=== PATIENT | female | born 1945 | race Caucasian/White ===

== ENCOUNTER 2017-07-06 09:26 | Day surgery (SDC) | payer MEDICARE, OTHER ==
[~2017-07-06 09:26] MED LIST: Acetaminophen TAB* 325 MG PO PRN; Buffered Lidocaine 0.9% SYRIN* 5 ML/SYR SYRINGE INTRADERM ONE; Buffered Lidocaine 0.9% SYRIN* 5 ML/SYR SYRINGE ONE; Cyclopentolate 1% OPTH.SOL* 2 ML BTL ONE; Ketorolac 0.5% OPHTH (NF) 0.5 % 5 ML BTL ONE; Lidocaine 1% MPF* 2 ML VIAL ONE; Neomycin/Polymy/Dex OPTH.SUSP* MAXITROL 0.1% 5 ML ONE; Phenylephrine 2.5% OPTH.SOL* 2 ML BTL ONE; Povidone Iodine 5% OPTH* 30 ML BTL ONE; Proparacaine 0.5% OPHTH.SOL* 15 ML BTL ONE; acetaZOLAMIDE TAB* 250 MG ONE
[2017-07-06] MEDS ORDERED: Midazolam* 1 MG/ML 2 ML VIAL (2 MG) ONE (11:26)
[2017-07-06 12:30] VITALS: BP 152/68
--- NOTE | 2017-07-06 13:16 | OP ---
DATE OF OPERATION: 07/06/2017. DATE OF : 1945. SURGEON: Angel Onofre M.D. PREOPERATIVE DIAGNOSIS: Cataract right eye. POSTOPERATIVE DIAGNOSIS: Cataract right eye. OPERATIVE PROCEDURE: Phacoemulsification right eye with IOL. PROCEDURE: The patient was brought to the operating room after being given 1/2% Alcaine with epinep hrine drops in the preoperative area. The eye was prepped and draped in the usual sterile fashion. Sterile drape and eyelid speculum were placed. Again, topical 1/2% Alcaine with epinephrine was gi nadia. A paracentesis incision was made at the 9 o'clock position with the No.75 blade. Clear cornea incision 2.2 x 2.2-mm was created at the 12 o'clock position starting at the anterior limbus using the 2.2-mm keratome. The anterior chamber was irrigated with 0.4 mL of 1% non-preservative intracam eral lidocaine and filled with DisCoVisc. A capsulorrhexis was completed using the cystotome and th e Utrata forceps. Hydrodissection was performed with balanced salt solution. The lens nucleus was r emoved with the Phacoemulsification handpiece without incident. Cortex was removed with the irrigat ion-aspiration handpiece. The capsular bag was re-inflated using DisCoVisc and an [id number] 17.5 impla nt was inserted with the shooter, oriented to the 90 degree meridian. Horizontal reference munoz wer e made with the patient in the preoperative area in the seated position. The irrigation-aspiration handpiece was used to remove all residual DisCoVisc. The eye was refilled with balanced salt soluti on and the wound checked and found to be watertight. Topical Maxitrol drops were given. [id number]/[facility] #: [id number]
== END 2017-07-06 12:38 | disposition home or self-care (01) ==
LOC: OREAST 09:26
PROVIDERS: ATTEND Specialist
DX: H25.811 Combined forms of age-related cataract, right eye (principal); H43.813 Vitreous degeneration, bilateral; H10.45 Other chronic allergic conjunctivitis; I10 Essential (primary) hypertension
CPT/HCPCS: A9270-GY; J2250; V2787

== ENCOUNTER 2017-08-28 18:03 | Emergency (ER) | payer MEDICARE, OTHER ==
[2017-08-28 19:11] VITALS: BP 152/64
--- NOTE | 2017-08-28 20:36 | ED ---
Reynold Wylie Abhishek, scribed for Ravi Ramsey MD on 08/28/17 at 1902 . Neurological HPI - HPI Summary HPI Summary: This patient is a 71 year old F presenting to [facility] accompanied by with a chief complaint of vision problem in the right eye since 1629 . Pt describes visual changes as, flashing after images for 15 to 20 minutes and has issues looking in the periphery. The patient rates the pain 0/10 in severity. Symptoms aggravated by nothing. Symptoms alleviated by nothing. Patient reports missing a door handle with her right arm earlier. Patient denies pain. PMHx includes Ocular rosacea. PSHx includes cataract surgery. - History of Current Complaint Chief Complaint: EDNeurologicalDeficit Stated Complaint: WEAKNESS Time Seen by Provider: 08/28/17 18:26 Hx Obtained From: Patient, Family/Duplicator Punch Operator Onset/Duration: Sudden Onset - 1629, Still Present Timing: Constant Pain Intensity: 0 Pain Scale Used: 0-10 Numeric Character: Dizzy, Visual Changes - pt describes these changes as flashing after images for 15 to 20 minutes and has issues looking in the periphery., Other: - disorientation Aggravating: Nothing Alleviating: Nothing Associated Signs and Symptoms: Positive: Visual Changes, Dizziness - Additional Pertinent History Primary Care Physician: [id number] - Allergy/Home Medications Allergies/Adverse Reactions: Allergies Allergy/AdvReac Type Severity Reaction Status Date / Time Pentazocine Allergy Severe ESOPHAGEAL Verified 07/06/17 10:28 [From Talwin Compound] BURNING Propoxyphene [From Darvon] Allergy Severe Anaphylatic Verified 07/06/17 10:28 Shock Aspirin Allergy Nausea Verified 07/06/17 10:28 Codeine Allergy Nausea Verified 07/06/17 10:28 Oxaliplatin Allergy Unknown Verified 07/06/17 10:28 Reaction Details bee venom Allergy Anaphylatic Uncoded 07/06/17 10:28 Shock PMH/Surg Hx/FS Hx/Imm Hx Endocrine/Hematology History: Denies: Hx Diabetes Cardiovascular History: Reports: Hx Coronary Artery Disease, Hx Hypertension - meds in use Denies: Hx Congestive Heart Failure GI History: Reports: Hx Gastroesophageal Reflux Disease Denies: Other GI Disorders - COLON CANCER [id number] History: Denies: Hx Dialysis, Hx Renal Disease Musculoskeletal History: Reports: Hx Arthritis Sensory History: Reports: Hx Cataracts - ADAMARIS Denies: Hx Contacts or Glasses, Hx Hearing Aid Opthamlomology History: Reports: Hx Cataracts - ADAMARIS Denies: Hx Contacts or Glasses Neurological History: Reports: Hx Migraine, Hx Nerve Disease - NEUROPATHY BILAT FEET - Cancer History Cancer Type, Location and Year: colon Hx Chemotherapy: Yes - Surgical History Surgery Procedure, Year, and Place: ACHILLES TENDON SURGERY, partial colectomy [facility] Hx Anesthesia Reactions: No Infectious Disease History: No Infectious Disease History: Denies: Traveled Outside the [place] in Last 30 Days - Family History Known Family History: Positive: Hypertension - Social History Alcohol Use: None Substance Use Type: Reports: None Smoking Status (MU): Never Smoked Tobacco Review of Systems Constitutional: Negative Positive: Other - visual changes described as flashing after images for 15 to 20 minutes and has issues looking in the periphery. ENT: Negative Cardiovascular: Negative Respiratory: Negative Gastrointestinal: Negative Genitourinary: Negative Musculoskeletal: Negative Skin: Negative Neurological: Other - dizziness Psychological: Normal All Other Systems Reviewed And Are Negative: Yes Physical Exam - Summary Physical Exam Summary: Appearance: Well-appearing, no pain distress IF BMI > 30 = obese Skin: Warm, dry, color reflects adequate perfusion Head/face: Nml head/face Eyes: Nml eyes ENT: Nml ENT Neck: Supple, non-tender Respiratory: CTA, breath sound present Cardiovascular: RRR Abdomen: Abd soft, non-tender, Bowel: Bowel sounds + Musculoskeletal: Nml musculoskeletal Neurological: Nml neuro (unless it is a neuro Pt, then click the first 4) Psychiatric: Nml psychiatric, affect/mood appropriate Triage Information Reviewed: Yes Vital Signs On Initial Exam: Initial Vitals Temp Pulse Resp BP Pulse Ox 97 F 58 16 163/85 100 08/28/17 18:08 08/28/17 18:08 08/28/17 18:08 08/28/17 18:08 08/28/17 18:08 Vital Signs Reviewed: Yes - Alexandro Coma Scale Coma Scale Total: 15 Diagnostics - Vital Signs Vital Signs Temp Pulse Resp BP Pulse Ox 08/28/17 18:08 97 F 58 16 163/85 100 - Laboratory Lab Statement: Any lab studies that have been ordered have been reviewed, and results considered in the medical decision making process. Course/Dx - Course Course Of Treatment: I got a pretty good look at her retina and didn't see any detachment, tear or hemorrhage. She needs a better look with dilatation and Dr. Onofre will see her in the AM. She is very clear that this is only her right eye and she sees normally out of the left. - Diagnoses Provider Diagnoses: Visual field scotoma of right eye Discharge - Discharge Plan Condition: Stable Disposition: HOME Patient Education Materials: Blurred Vision (ED) Referrals: Angel Onofre MD [Medical Doctor] - (Follow up tomorrow morning) Erasto Walker MD [Primary Care Provider] - The documentation as recorded by the Reynold lynn Abhishek accurately reflects the service I personally performed and the decisions made by me, Ravi Ramsey MD.
== END 2017-08-28 19:12 | disposition home or self-care (01) ==
LOC: ED 18:03
DX: H53.451 Other localized visual field defect, right eye (principal); R42 Dizziness and giddiness; I25.10 Atherosclerotic heart disease of native coronary artery without angina pectoris; I10 Essential (primary) hypertension; K21.9 Gastro-esophageal reflux disease without esophagitis; G43.909 Migraine, unspecified, not intractable, without status migrainosus; Z91.030 Bee allergy status; Z88.5 Allergy status to narcotic agent; Z88.6 Allergy status to analgesic agent; G62.9 Polyneuropathy, unspecified
CPT/HCPCS: 99282

== ENCOUNTER → 2017-09-01 11:19 | Emergency (ER) | payer MEDICARE, OTHER ==
[~2017-09-01 11:19] MED LIST changes: -Acetaminophen TAB* 325 MG PO PRN; -Buffered Lidocaine 0.9% SYRIN* 5 ML/SYR SYRINGE INTRADERM ONE; -Buffered Lidocaine 0.9% SYRIN* 5 ML/SYR SYRINGE ONE; -Cyclopentolate 1% OPTH.SOL* 2 ML BTL ONE; +Dexamethasone IV* 10 MG in NS 0.9% 50 ML* 50 ML IVPB ONE; +Dexamethasone IV* 4 MG/ML 5 ML VIAL (20 MG) IVPB ONE; +Dexamethasone TAB* 6 MG PO ONE; +Gadoteridol* (CONTRAST) 279.3 MG/ML 10 ML IV ONE; -Ketorolac 0.5% OPHTH (NF) 0.5 % 5 ML BTL ONE; -Lidocaine 1% MPF* 2 ML VIAL ONE; -Neomycin/Polymy/Dex OPTH.SUSP* MAXITROL 0.1% 5 ML ONE; -Phenylephrine 2.5% OPTH.SOL* 2 ML BTL ONE; -Povidone Iodine 5% OPTH* 30 ML BTL ONE; -Proparacaine 0.5% OPHTH.SOL* 15 ML BTL ONE; -acetaZOLAMIDE TAB* 250 MG ONE
[2017-09-01 12:09] LABS: Hematocrit 36 % (35-47); Hemoglobin 12.4 g/dl (12.0-16.0); Mean Corpuscular HGB Conc 35 g/dl (31-36); Mean Corpuscular Hemoglobin 36 pg (27-31); Mean Corpuscular Volume 104 fL (80-97); Mean Platelet Volume 8 um3 (7.4-10.4); Red Blood Count 3.45 10^6/ul (4.0-5.4); Red Cell Distribution Width 19 % (10.5-15); White Blood Count 7.6 10^3/ul (3.5-10.8)
[2017-09-01 12:34] LABS: Albumin 3.9 g/dL (3.2-5.2); BUN/Creatinine Ratio 12.5 (8-20); Calcium 9.8 mg/dL (8.6-10.3); EGFR African American 102.7 (>60); EGFR Non-African American 79.9 (>60); Globulin 3.2 g/dL (2-4); Total Bilirubin 0.4 mg/dL (0.2-1.0); Total Protein 7.1 g/dL (6.4-8.9)
[2017-09-01 16:59] VITALS: BP 128/78
--- NOTE | 2017-09-01 17:07 | RAD ---
Indication: Colon cancer with visual changes. Image sequences: Sagittal and axial T1, axial T2, diffusion and susceptibility weighted images of the brain were obtained. 13 mL of ProHance was injected and postcontrast axial, sagittal and coronal T1-weighted images were repeated. Ventricular structures are midline. No midline shift is noted. Vasogenic edema is noted in the left occipital lobe extending into the left parietal lobe and surrounding the atria of the left lateral ventricle. There is a ring-enhancing lesion in the left occipital lobe measuring 18 x 22 x 16 mm. This is suspicious for a metastatic lesion. No other enhancing lesions are identified. The bony calvaria is otherwise unremarkable. Posterior fossa and brainstem demonstrates no evidence of abnormally enhancing lesions. Cerebellopontine angles are unremarkable. No evidence of enhancement of the meninges is noted. No restriction of diffusion is noted. Susceptibility weighted images demonstrates no susceptibility artifact. Fluid is noted in the left mastoid air cells consistent with left-sided mastoid sinusitis. The orbits are intact. The remainder of the peroneal sinuses are grossly unremarkable. IMPRESSION: Ring-enhancing lesion in the left occipital lobe measuring 18 x 22 x 16 mm with extensive vasogenic edema in the left occipital lobe extending to the left parietal lobe and in the periatrial aspect of the left lateral ventricle. Findings are consistent with a metastatic lesion as there is no restriction of diffusion. Left mastoid sinusitis is noted.
--- NOTE | 2017-09-02 19:00 | ED ---
Smith Wylie Angela, scribed for Erasto العلي MD on 09/01/17 at 1146 . Neurological HPI - HPI Summary HPI Summary: This pt is a 71 y/o female presenting to [facility] c/o right eye visual disturbances x4 days. Pt describes seeing flashing lights and issues seeing in the periphery. Pt notes that she is being followed by Dr. Mauro Medina ( [facility]) for colon CA that has metastasized to her lungs and adrenal lung. Pt is not on chemotherapy but notes she is in between clinical trials. Pt was referred to Dr. Onofre 4 days ago when she came to the ED for the same problem. Dr. Onofre diagnosed her with ocular migraine 3 days ago. Pt states she had a visual field test yesterday and Dr. Onofre suggested pt gets an MRI today. Dr. Medina is following up on the pt from [facility] as well. Pt has an upcoming appointment in [facility] in early September for a chest/abd /pel CT. PMHx: colon CA, neuropathy. - History of Current Complaint Chief Complaint: EDNeurologicalDeficit Stated Complaint: LOSS OF VISSON Time Seen by Provider: 09/01/17 11:35 Hx Obtained From: Patient Onset/Duration: Started days ago Timing: Constant Pain Intensity: 0 Pain Scale Used: 0-10 Numeric Character: Visual Changes - visual disturbances on right eye. - Additional Pertinent History Primary Care Physician: [id number] - Allergy/Home Medications Allergies/Adverse Reactions: Allergies Allergy/AdvReac Type Severity Reaction Status Date / Time Pentazocine Allergy Severe ESOPHAGEAL Verified 07/06/17 10:28 [From Talwin Compound] BURNING Propoxyphene [From Darvon] Allergy Severe Anaphylatic Verified 07/06/17 10:28 Shock Aspirin Allergy Nausea Verified 07/06/17 10:28 Codeine Allergy Nausea Verified 07/06/17 10:28 Oxaliplatin Allergy Unknown Verified 07/06/17 10:28 Reaction Details bee venom Allergy Anaphylatic Uncoded 07/06/17 10:28 Shock PMH/Surg Hx/FS Hx/Imm Hx Endocrine/Hematology History: Denies: Hx Diabetes Cardiovascular History: Reports: Hx Coronary Artery Disease, Hx Hypertension - meds in use Denies: Hx Congestive Heart Failure GI History: Reports: Hx Gastroesophageal Reflux Disease Denies: Other GI Disorders - COLON CANCER [id number] History: Denies: Hx Dialysis, Hx Renal Disease Musculoskeletal History: Reports: Hx Arthritis Sensory History: Reports: Hx Cataracts - ADAMARIS Denies: Hx Contacts or Glasses, Hx Hearing Aid Opthamlomology History: Reports: Hx Cataracts - ADAMARIS Denies: Hx Contacts or Glasses Neurological History: Reports: Hx Migraine, Hx Nerve Disease - NEUROPATHY BILAT FEET - Cancer History Cancer Type, Location and Year: colon Hx Chemotherapy: Yes - Surgical History Surgery Procedure, Year, and Place: ACHILLES TENDON SURGERY, partial colectomy [facility] Hx Anesthesia Reactions: No Infectious Disease History: No Infectious Disease History: Denies: Traveled Outside the [place] in Last 30 Days - Family History Known Family History: Positive: Hypertension - Social History Alcohol Use: None Substance Use Type: Reports: None Smoking Status (MU): Never Smoked Tobacco Review of Systems Negative: Fever, Chills Positive: Other - visual disturbance on right eye. ENT: Negative Cardiovascular: Negative Respiratory: Negative Gastrointestinal: Negative Genitourinary: Negative Musculoskeletal: Negative Skin: Negative All Other Systems Reviewed And Are Negative: Yes Physical Exam - Summary Physical Exam Summary: VITAL SIGNS: Reviewed. GENERAL: Patient is a well-developed and nourished (MALE OR FEMALE) who is lying comfortable in the stretcher. Patient is not in any acute respiratory distress. HEAD AND FACE: No signs of trauma. No ecchymosis, hematomas or skull depressions. No sinus tenderness. EYES: PERRLA, EOMI x 2, No injected conjunctiva, no nystagmus. No photophobia. EARS: Hearing grossly intact. Ear canals and tympanic membranes are within normal limits. MOUTH: Oropharynx within normal limits. NECK: Supple, trachea is midline, no adenopathy, no JVD, no carotid bruit, no c- spine tenderness, neck with full ROM. No meningeal signs, no Kernig's or brudzinskis signs. CHEST: Symmetric, no tenderness at palpation LUNGS: Clear to auscultation bilaterally. No wheezing or crackles. CVS: Regular rate and rhythm, S1 and S2 present, no murmurs or gallops appreciated. ABDOMEN: Soft, non-tender. No signs of distention. No rebound no guarding, and no masses palpated. Bowel sounds are normal. EXTREMITIES: FROM in all major joints, no edema, no cyanosis or clubbing. NEURO: Alert and oriented x 3. No acute neurological deficits. Speech is normal and follows commands. NIH scale = 1. SKIN: Dry and warm GCS: 15 Triage Information Reviewed: Yes Vital Signs On Initial Exam: Initial Vitals Temp Pulse Resp BP Pulse Ox 96.8 F 61 17 133/74 100 09/01/17 11:22 09/01/17 11:22 09/01/17 11:22 09/01/17 11:22 09/01/17 11:22 Vital Signs Reviewed: Yes Diagnostics - Vital Signs Vital Signs Temp Pulse Resp BP Pulse Ox 09/01/17 11:22 96.8 F 61 17 133/74 100 - Laboratory Result Diagrams: 09/01/17 11:55 09/01/17 11:55 Lab Statement: Any lab studies that have been ordered have been reviewed, and results considered in the medical decision making process. - Additional Comments Diagnostic Additional Comments: MRI Brain, per radiologist: IMPRESSION: Ring-enhancing lesion in the left occipital lobe measuring 18 x 22 x 16 mm with extensive vasogenic edema in the left occipital lobe extending to the left parietal lobe and in the periatrial aspect of the left lateral ventricle. Findings are consistent with a metastatic lesion as there is no restriction of diffusion. Left mastoid sinusitis is noted. ED physician has reviewed this radiology report and agrees. NIH Scale - NIH Scale Level of Consciousness: Alert/Keenly Responsive Ask Patient the Month and His/Her Age: Both Correct Ask Pt to Open/Close Eyes and Naphtha Washing System Operator/Release Non-Paretic Hand: Both Correctly Best Gaze (Only Horizontal Eye Movement): Normal Visual Field Testing: Partial Hemianopia Facial Paresis-Pt to Smile & Close Eyes or Grimace Symmetry: Normal/Symmetrical Motor Function - Right Arm: No Drift-Holds 10 Seconds Motor Function - Left Arm: No Drift-Holds 10 Seconds Motor Function - Right Leg: No Drift-Holds 10 Seconds Motor Function - Left Leg: No Drift-Holds 10 Seconds Limb Ataxia-Must be out of Proportion to Weakness Present: Absent Sensory (Use Pinprick to Test Arms/Legs/Trunk/Face): Normal Best Language (Describe Picture, Name Items): No Aphasia Dysarthria (Read Several Words): Normal Extinction and Inattention: No Abnormality Total Score: 1 Course/Dx - Course Assessment/Plan: This pt is a 71 y/o female presenting to [facility] c/o right eye visual disturbances x4 days. Pt describes seeing flashing lights and issues seeing in the periphery. Pt notes that she is being followed by Dr. Mauro Medina ([facility]) for colon CA that has metastasized to her lungs and adrenal lung. Pt is not on chemotherapy but notes she is in between clinical trials. Pt was referred to Dr. Onofre 4 days ago when she came to the ED for the same problem. Dr. Onofre diagnosed her with ocular migraine 3 days ago. Pt states she had a visual field test yesterday and Dr. Onofre suggested pt gets an MRI today. Dr. Medina is following up on the pt from [facility] as well. Pt has an upcoming appointment in [facility] in early September for a chest/abd/pel CT. PMHx: colon CA, neuropathy. MRI Brain shows Ring-enhancing lesion in the left occipital lobe measuring 18 x 22 x 16 mm with extensive vasogenic edema in the left occipital lobe extending to the left parietal lobe and in the periatrial aspect of the left lateral ventricle. Findings are consistent with a metastatic lesion as there is no restriction of diffusion. Left mastoid sinusitis is noted. I discussed the case with Dr. Sexton (from [facility]), who is covering for Dr. Medina. Dr. Sexton spoke with Dr. Medina. He recommends I discuss the case with Dr. Villagomez (who initially treated the pt in [place]) for further assessment and work up. I spoke with Dr. Middleton who spoke with Dr. Villagomez. He recommends discharging the pt with Decadron 6 mg Q6 hours. They will call the pt tomorrow for an appointment tomorrow with Dr. Villagomez, possibly for radiation oncology. I discussed with the pt and she agrees with the plan. Pt is hemodynamically stable, alert and oriented x3. - Diagnoses Provider Diagnoses: Brain metastasis - Physician Notifications Discussed Care Of Patient With: Dr. Sexton - from [facility] Time Discussed With Above Provider: 17:29 Instructed by Provider To: Other - I discussed the case with Dr. Sexton, who is covering for Dr. Medina. Dr. Sexton will speak with Dr. Medina and give me a call back. [1815] Dr. Sexton recommended I speak with Dr. Villagomez (who initially treated the pt in [place]). [18:18] I spoke with Dr. Middleton and will speak with Dr. Villagomez. [18:27] Dr. Middleton spoke with Dr. Villagomez. He recommends discharging the pt with Decadron 6 mg q6 hours. Discharge - Discharge Plan Condition: Stable Disposition: HOME Prescriptions: Dexamethasone TAB* [Decadron TAB*] 6 mg PO Q6H #40 tab Patient Education Materials: Self Care Measures With Cancer (ED) Referrals: Dominic Villagomez MD [Medical Doctor] - Erasto Walker MD [Primary Care Provider] - Additional Instructions: Please follow up with Dr. Villagomez tomorrow. The documentation as recorded by the Smith lynn Angela accurately reflects the service I personally performed and the decisions made by me, Erasto العلي MD.
== END | disposition home or self-care (01) ==
LOC: ED 11:19
DX: C79.31 Secondary malignant neoplasm of brain (principal); H53.9 Unspecified visual disturbance; Z86.79 Personal history of other diseases of the circulatory system
CPT/HCPCS: 36415; 70553; 80053; 85025; 85610; 85730; 86850; 86900; 86901; 99283; A9270-GY; A9579; J1100; J1642

== ENCOUNTER 2017-09-15 14:52 | Inpatient (IN) | payer MEDICARE, OTHER ==
[2017-09-15] MEDS ORDERED: NS 0.9% 1000 ML*IV.FLUID IV ONE (18:04)
--- NOTE | 2017-09-15 18:52 | RAD ---
HISTORY: Cough, short of breath COMPARISONS: PET CT dated February 23, 2017, chest x-ray dated February 02, 2017 VIEWS: 4: Frontal dual-energy and lateral views of the chest. FINDINGS: CARDIOMEDIASTINAL SILHOUETTE: The cardiomediastinal silhouette is normal. IVETT: The ivett are normal. PLEURA: The costophrenic angles are sharp. No pleural abnormalities are noted. LUNG PARENCHYMA: There has been interval development of confluent opacification of the upper lobes bilaterally and to lesser extent of the right middle lobe. ABDOMEN: The upper abdomen is clear. There is no subphrenic gas. BONES AND SOFT TISSUES: A right-sided chest port is noted with the tip overlying the cavoatrial junction. OTHER: None. IMPRESSION: 1. THERE HAS BEEN INTERVAL DEVELOPMENT OF MULTIFOCAL OPACIFICATION OF THE LUNGS BILATERALLY. THE DIFFERENTIAL INCLUDES CONSOLIDATION IN THE SETTING OF PNEUMONIA. GIVEN THE HISTORY OF MALIGNANCY, NEOPLASM IS ALSO WITHIN THE DIFFERENTIAL. 2. RECOMMEND FOLLOW-UP UNTIL RESOLUTION TO EXCLUDE UNDERLYING PULMONARY PARENCHYMAL PATHOLOGY. IF THE CLINICAL PRESENTATION IS NOT CONSISTENT WITH INFECTION, CONSIDER FURTHER EVALUATION WITH CONTRAST-ENHANCED CT OF THE CHEST
[2017-09-15] MEDS ORDERED: cefTRIAXone(*) 1 GM in NS 0.9% 50 ML* 50 ML IVPB ONE (18:54)
[2017-09-15] MEDS ORDERED: Azithromycin IV(*) 500 MG in NS 0.9% 250 ML* 250 ML IVPB ONE (18:54)
[2017-09-15 19:16] LABS: Hematocrit 34 % (35-47); Hemoglobin 11.7 g/dl (12.0-16.0); Mean Corpuscular HGB Conc 34 g/dl (31-36); Mean Corpuscular Hemoglobin 34 pg (27-31); Mean Corpuscular Volume 100 fL (80-97); Mean Platelet Volume 9 um3 (7.4-10.4); Red Cell Distribution Width 18 % (10.5-15)
[2017-09-15 19:17] LABS: Comments Flag Yes
[2017-09-15 19:18] LABS: Add Diff/Slide Review? Slide Review Added
[2017-09-15 19:32] LABS: Albumin 2.8 g/dL (3.2-5.2); BUN/Creatinine Ratio 21.7 (8-20); Calcium 9.3 mg/dL (8.6-10.3); Direct Bilirubin 0.2 mg/dL (0.03-0.18); EGFR African American 126.7 (>60); EGFR Non-African American 98.5 (>60); Globulin 3.5 g/dL (2-4); Indirect Bilirubin 0.4 mg/dL (0.3-1.0); Potassium 4.3 mmol/L (3.5-5.0); Total Bilirubin 0.6 mg/dL (0.2-1.0); Total Protein 6.3 g/dL (6.4-8.9)
[2017-09-15 19:35] LABS: Troponin I 0.05 ng/mL (<0.04)
[2017-09-15] MEDS ORDERED: Iohexol 350* (CONTRAST) 500 ML MDV IV ONE (19:40)
[2017-09-15 19:53] LABS: Immature Granulocytes 8 % (0-9); Neutrophil % 92 % (38-83); RBC Morphology Normal (Normal); Toxic Granulation 2+
--- NOTE | 2017-09-15 20:03 | ED ---
Aimee Wylie Alfonso, scribed for Da Rosales MD on 09/15/17 at 1758 . Complex/Multi-Sys Presentation - HPI Summary HPI Summary: This patient is a 71 year old F presenting to [facility] accompanied by with a chief complaint of slowed and slurred speech since 2 days ago. reports she couldnt speak well. She reports undergoing a gamma knife procedure 10 days ago. The patient rates the pain 0/10 in severity. Symptoms alleviated by nothing. Patient reports fever, SOB, shallow breathing, cough, urinary incontinence, and peripheral vision loss. Patient denies pain including abdominal pain and back pain, and saddle numbness. - History Of Current Complaint Chief Complaint: EDAltMentalStatus Hx Obtained From: Patient Onset/Duration: Gradual Onset, Lasting Days - 2, Still Present Timing: Constant Alleviating Factor(s): nothing Associated Signs And Symptoms: Positive: Other - fever, SOB, shallow breathing, cough, urinary inconstancy, and peripheral vision loss. Patient denies pain including abdominal pain and back pain, and saddle numbness. - Allergies/Home Medications Allergies/Adverse Reactions: Allergies Allergy/AdvReac Type Severity Reaction Status Date / Time Pentazocine Allergy Severe ESOPHAGEAL Verified 07/06/17 10:28 [From Talwin Compound] BURNING Propoxyphene [From Darvon] Allergy Severe Anaphylatic Verified 07/06/17 10:28 Shock Aspirin Allergy Nausea Verified 07/06/17 10:28 Codeine Allergy Nausea Verified 07/06/17 10:28 Oxaliplatin Allergy Unknown Verified 07/06/17 10:28 Reaction Details bee venom Allergy Anaphylatic Uncoded 07/06/17 10:28 Shock PMH/Surg Hx/FS Hx/Imm Hx Endocrine/Hematology History: Denies: Hx Diabetes Cardiovascular History: Reports: Hx Coronary Artery Disease, Hx Hypertension - meds in use Denies: Hx Congestive Heart Failure, Hx Pacemaker/ICD GI History: Reports: Hx Gastroesophageal Reflux Disease Denies: Other GI Disorders - COLON CANCER [id number] History: Denies: Hx Dialysis, Hx Renal Disease Musculoskeletal History: Reports: Hx Arthritis Sensory History: Reports: Hx Cataracts - ADAMARIS Denies: Hx Contacts or Glasses, Hx Hearing Aid Opthamlomology History: Reports: Hx Cataracts - ADAMARIS Denies: Hx Contacts or Glasses Neurological History: Reports: Hx Migraine, Hx Nerve Disease - NEUROPATHY BILAT FEET Psychiatric History: Denies: Hx Panic Disorder - Cancer History Cancer Type, Location and Year: colon Hx Chemotherapy: Yes - Surgical History Surgery Procedure, Year, and Place: ACHILLES TENDON SURGERY, partial colectomy [facility] Hx Anesthesia Reactions: No Infectious Disease History: No Infectious Disease History: Denies: Traveled Outside the [place] in Last 30 Days - Family History Known Family History: Positive: Hypertension - Social History Alcohol Use: None Substance Use Type: Reports: None Smoking Status (MU): Never Smoked Tobacco Review of Systems Positive: Fever Positive: Other - peripheral vision loss Positive: Shortness Of Breath, Cough, Other - shallow breathing Negative: Abdominal Pain Positive: incontinence Positive: Other - negative pain including back pain Neurological: Other - slowed and slurred speech; negative saddle numbness. All Other Systems Reviewed And Are Negative: Yes Physical Exam - Summary Physical Exam Summary: Appearance: Well-appearing, Well-nourished, NAD Skin: Warm Eyes: Normal ENT: Normal Neck: Supple, nontender Respiratory: Crackles throughout right lung pond Cardiovascular: Normal, Normal distal pulses in all extremities Abdomen: Soft, nontender Bowel: Present Musculoskeletal: Normal, Strength/ROM Intact Neurological: Normal, A&Ox3, Cranial nerves II to XII intact. No dysarthria or aphasia. Psychiatric: Normal, Speaking in full sentences Triage Information Reviewed: Yes Vital Signs On Initial Exam: Initial Vitals Temp Pulse Resp BP Pulse Ox 100.4 F 95 18 156/63 91 09/15/17 15:08 09/15/17 15:08 09/15/17 15:08 09/15/17 15:08 09/15/17 15:08 Vital Signs Reviewed: Yes Diagnostics - Vital Signs Vital Signs Temp Pulse Resp BP Pulse Ox 09/15/17 17:06 100.8 F 85 19 139/84 88 09/15/17 15:08 100.4 F 95 18 156/63 91 - Laboratory Lab Results: Lab Results 09/15/17 09/15/17 09/15/17 Range/Units 19:05 19:05 19:05 WBC 19.0 H (3.5-10.8) 10^3/ul RBC 3.40 L (4.0-5.4) 10^6/ul Hgb 11.7 L (12.0-16.0) g/dl Hct 34 L (35-47) % MCV 100 H (80-97) fL MCH 34 H (27-31) pg MCHC 34 (31-36) g/dl RDW 18 H (10.5-15) % Plt Count 141 L (150-450) 10^3/ul MPV 9 (7.4-10.4) um3 Immature Gran % (Auto) 8 (0-9) % Neut % (Auto) 98.7 H (38-83) % Lymph % (Auto) 0.5 L (25-47) % [place] % (Auto) 0.5 L (1-9) % Eos % (Auto) 0 (0-6) % Baso % (Auto) 0.3 (0-2) % Absolute Neuts (auto) 18.8 H (1.5-7.7) 10^3/ul Absolute Lymphs (auto) 0.1 L (1.0-4.8) 10^3/ul Absolute Monos (auto) 0.1 (0-0.8) 10^3/ul Absolute Eos (auto) 0 (0-0.6) 10^3/ul Absolute Basos (auto) 0.1 (0-0.2) 10^3/ul Absolute Nucleated RBC 0 10^3/ul Neutrophils % 92 H (38-83) % Band Neutrophils % 8 (0-8) % Nucleated RBC % 0 Toxic Granulation 2+ Normal RBC Morphology Normal (Normal) INR (Anticoag Therapy) 1.02 (0.89-1.11) APTT 38.6 H (26.0-36.3) seconds Fibrinogen 802 H (110.8-404.3) mg/dL Sodium 124 L (133-145) mmol/L Potassium 4.3 (3.5-5.0) mmol/L Chloride 91 L (101-111) mmol/L Carbon Dioxide 25 (22-32) mmol/L Anion Gap 8 (2-11) mmol/L BUN 13 (6-24) mg/dL Creatinine 0.60 (0.51-0.95) mg/dL Est GFR ( Amer) 126.7 (>60) Est GFR (Non-Af Amer) 98.5 (>60) BUN/Creatinine Ratio 21.7 H (8-20) Glucose 110 H (70-100) mg/dL Lactic Acid (0.5-2.0) mmol/L Calcium 9.3 (8.6-10.3) mg/dL Total Bilirubin 0.60 (0.2-1.0) mg/dL Direct Bilirubin 0.20 H (0.03-0.18) mg/dL Indirect Bilirubin 0.4 (0.3-1.0) mg/dL AST 52 H (13-39) U/L ALT 65 H (7-52) U/L Alkaline Phosphatase 100 (34-104) U/L Troponin I 0.05 H* (<0.04) ng/mL Total Protein 6.3 L (6.4-8.9) g/dL Albumin 2.8 L (3.2-5.2) g/dL Globulin 3.5 (2-4) g/dL Albumin/Globulin Ratio 0.8 L (1-3) Blood Type Antibody Screen 09/15/17 09/15/17 Range/Units 19:05 19:05 WBC (3.5-10.8) 10^3/ul RBC (4.0-5.4) 10^6/ul Hgb (12.0-16.0) g/dl Hct (35-47) % MCV (80-97) fL MCH (27-31) pg MCHC (31-36) g/dl RDW (10.5-15) % Plt Count (150-450) 10^3/ul MPV (7.4-10.4) um3 Immature Gran % (Auto) (0-9) % Neut % (Auto) (38-83) % Lymph % (Auto) (25-47) % [place] % (Auto) (1-9) % Eos % (Auto) (0-6) % Baso % (Auto) (0-2) % Absolute Neuts (auto) (1.5-7.7) 10^3/ul Absolute Lymphs (auto) (1.0-4.8) 10^3/ul Absolute Monos (auto) (0-0.8) 10^3/ul Absolute Eos (auto) (0-0.6) 10^3/ul Absolute Basos (auto) (0-0.2) 10^3/ul Absolute Nucleated RBC 10^3/ul Neutrophils % (38-83) % Band Neutrophils % (0-8) % Nucleated RBC % Toxic Granulation Normal RBC Morphology (Normal) INR (Anticoag Therapy) (0.89-1.11) APTT (26.0-36.3) seconds Fibrinogen (110.8-404.3) mg/dL Sodium (133-145) mmol/L Potassium (3.5-5.0) mmol/L Chloride (101-111) mmol/L Carbon Dioxide (22-32) mmol/L Anion Gap (2-11) mmol/L BUN (6-24) mg/dL Creatinine (0.51-0.95) mg/dL Est GFR ( Amer) (>60) Est GFR (Non-Af Amer) (>60) BUN/Creatinine Ratio (8-20) Glucose (70-100) mg/dL Lactic Acid 1.8 (0.5-2.0) mmol/L Calcium (8.6-10.3) mg/dL Total Bilirubin (0.2-1.0) mg/dL Direct Bilirubin (0.03-0.18) mg/dL Indirect Bilirubin (0.3-1.0) mg/dL AST (13-39) U/L ALT (7-52) U/L Alkaline Phosphatase (34-104) U/L Troponin I (<0.04) ng/mL Total Protein (6.4-8.9) g/dL Albumin (3.2-5.2) g/dL Globulin (2-4) g/dL Albumin/Globulin Ratio (1-3) Blood Type O Positive Antibody Screen Negative Result Diagrams: 09/15/17 19:05 09/15/17 19:05 Lab Statement: Any lab studies that have been ordered have been reviewed, and results considered in the medical decision making process. - Radiology CXR Radiology Interpretation Completed By: Radiologist - 1. THERE HAS BEEN INTERVAL DEVELOPMENT OF MULTIFOCAL OPACIFICATION OF THE LUNGS BILATERALLY. THE DIFFERENTIAL INCLUDES CONSOLIDATION IN THE SETTING OF PNEUMONIA. GIVEN THE HISTORY OF MALIGNANCY, NEOPLASM IS ALSO WITHIN THE DIFFERENTIAL. 2. RECOMMEND FOLLOW-UP UNTIL RESOLUTION TO EXCLUDE UNDERLYING PULMONARY PARENCHYMAL PATHOLOGY. IF THE CLINICAL PRESENTATION IS NOT CONSISTENT WITH INFECTION, CONSIDER FURTHER EVALUATION WITH CONTRAST-ENHANCED CT OF THE CHEST. ED physician has reviewed this radiology report and agrees. - CT CTA Chest CT Interpretation Completed By: Radiologist - Pending official interpretation from radiologist. See meditech. - EKG 1818 Cardiac Rate: NL - BPM 88 EKG Rhythm: Sinus Rhythm EKG Interpretation: Flattened T-wave inversions in AVL. EKG Comparison: No Significant Change - 06/06/15 Complex Multi-Symp Course/Dx Assessment/Plan: pt given abx for pna seen on xr, ct chest pending, admitte dfor further treatmenbt - Diagnoses Provider Diagnoses: Pneumonia - Physician Notifications Instructed by Provider To: Admit As Inpatient Discharge - Discharge Plan Condition: Stable Disposition: ADMITTED TO [facility] The documentation as recorded by the Aimee lynn Alfonso accurately reflects the service I personally performed and the decisions made by Bobby khan Dong, MD.
--- NOTE | 2017-09-15 20:38 | RAD ---
HISTORY: Altered mental status, fever, cough COMPARISONS: CT of the chest dated October 15, 2016 TECHNIQUE: Multiple contiguous axial CT scans of the chest were obtained after the administration of nonionic intravenous contrast, timed to the pulmonary arterial phase of contrast enhancement.. Coronal and sagittal multiplanar reformations are also submitted for review. FINDINGS: NECK AND THYROID: The lower neck and thyroid are unremarkable. CHEST WALL: There is no lower cervical, axillary, or supraclavicular lymphadenopathy by size criteria. A right-sided chest port is noted. HEART AND PERICARDIUM: The heart is unremarkable. AORTA AND PULMONARY VASCULATURE: There is no pulmonary arterial filling defect to suggest pulmonary embolism. There is no linear filling defect within the aorta to suggest aortic dissection. MEDIASTINUM: There is no mediastinal lymphadenopathy by size criteria. IVETT: There is no hilar lymphadenopathy by size criteria. AIRWAY AND ESOPHAGUS: The airway is unremarkable, without endobronchial filling defect. The esophagus is grossly normal. LUNG PARENCHYMA: There is a paramediastinal solid mass of the right upper lobe measuring 4.7 cm in size. There is a mass of the lingula measuring 3.7 cm in size. There is masslike consolidation of the left upper lobe and multiple segments of the right lower lobe. There is masslike consolidation of the right middle lobe. PLEURA: No pleural abnormalities are noted. UPPER ABDOMEN: A left renal cyst is noted. BONES AND SOFT TISSUES: There is diffuse osteopenia. Degenerative changes are noted of the spine OTHER: None. IMPRESSION: THERE ARE MULTIPLE PULMONARY PARENCHYMAL MASSES, WELL AREAS OF CONSOLIDATION VERSUS MASS THROUGHOUT BOTH LUNGS, MOST CONSISTENT WITH NEOPLASM VERSUS MIXED NEOPLASM AND CONSOLIDATION. THERE IS NO PULMONARY ARTERIAL FILLING DEFECT TO SUGGEST PULMONARY EMBOLISM
[2017-09-15] MEDS ORDERED: Ondansetron INJ* 2 MG/ML VIAL IV PRN (21:21)
[2017-09-15] MEDS ORDERED: Acetaminophen TAB* 325 MG PO PRN (21:21)
[2017-09-15] MEDS ORDERED: traMADol TAB* 50 MG PO PRN (21:25)
[2017-09-15] MEDS ORDERED: Diphenoxylat/Atrop 2.5-0.025M* 1 TAB PO PRN (21:25)
[2017-09-15] MEDS ORDERED: Prochlorperazine TAB* 10 MG PO PRN (21:25)
--- NOTE | 2017-09-15 21:33 | RAD ---
HISTORY: Dysarthria, history of brain metastases COMPARISONS: MRI dated September 01, 2017 TECHNIQUE: Multiple contiguous axial CT scans were obtained of the head without intravenous contrast. FINDINGS: HEMORRHAGE/INFARCT: There is no hemorrhage or acute infarct. MASSES/SHIFT: There is low-attenuation lesion of the left occipital lobe corresponding to the lesion noted on MRI dated September 01, 2017. There is associated vasogenic edema. There is no shift. EXTRA-AXIAL SPACES: There are no extra-axial fluid collections. SULCI AND VENTRICLES: The sulci and ventricles are normal in size and position for the patient's stated age. CEREBRUM: As noted above, there is a high attenuation lesion of the left occipital lobe corresponding to the metastatic lesion noted on MRI. There is associated vasogenic edema. There is shift. Accounting for differences in technique, this is similar to the previous examination.. BRAINSTEM: There are no focal parenchymal abnormalities. CEREBELLUM: There are no focal parenchymal abnormalities. VESSELS: The vessels are grossly normal. PARANASAL SINUSES: The paranasal sinuses are clear. ORBITS: The orbits are unremarkable. BONES AND SOFT TISSUE: No bone or soft tissue abnormalities are noted. OTHER: None IMPRESSION: AGAIN NOTED IS A LESION MOST CONSISTENT WITH METASTASIS OF THE LEFT OCCIPITAL LOBE WITH ASSOCIATED VASOGENIC EDEMA, SIMILAR TO PREVIOUS MRI ACCOUNTING FOR DIFFERENCES IN TECHNIQUE. THERE IS NO SHIFT.
[2017-09-16] MEDS ORDERED: guaiFENesin LIQ* 100 MG/5 ML UDC PO PRN (00:32)
[2017-09-16] MEDS: Dexamethasone TAB* 6 MG PO SCH ×5 (00:35→21:39)
[2017-09-16] MEDS: Enoxaparin(*) 40 MG/0.4 ML SYR SUBCUT SCH ×2 (00:37→21:39)
[2017-09-16] MEDS: Nystatin SUSPENSION* 100000 UNITS/ML 5 ML UDC PO SCH ×5 (00:43→21:39)
[2017-09-16] MEDS: Baclofen TAB* 10 MG PO SCH ×4 (00:59→17:00)
--- NOTE | 2017-09-16 01:39 | HP ---
CC: Dr. Walker; Dr. Dominic Villagomez, Oncology * HISTORY AND PHYSICAL: DATE OF ADMISSION: 09/15/17 PRIMARY CARE PHYSICIAN: Dr. Walker. CHIEF COMPLAINT: Shortness of breath, congestion. HISTORY OF PRESENT ILLNESS: Ms. Krishnan is a pleasant 71-year-old female with a past medical history of hypertension and metastatic colon cancer to the right lung, brain, and right adrenal gland status post surgery, chemo/radiation therapy, and gamma knife surgery, who presents to the hospital with shortness of breath and congestion. The patient states she recently underwent a gamma knife radiosurgery in [place] about 10 days ago. Shortly after that, she developed a mild cough and within the past 3 days, the cough has worsened. She now feels throat and chest congestion and reports a small amount of yellowish white sputum production with no blood in the sputum. She also reports some left -sided chest pain that is worse with coughing and deep breathing, has had a low- grade fever at home today, and has been having progressively difficulty sleeping due to her breathing issues. She reports incontinence, which is new as well as some diarrhea or constipation. The diarrhea and constipation has been nonbloody. Denies any dysuria. She has been having good p.o. intake and no nausea and vomiting. The patient was diagnosed with colon cancer in 2014. States she had a right hemicolectomy at that time and subsequently was treated with chemotherapy and radiation therapy. She states she sees Dr. Villagomez locally and also sees Dr. Medina and Dr. Hansen at [place]. She says she is not currently on chemotherapy. Her last treatment was [address] Medina in [place]. As noted above, she underwent a gamma knife radiosurgery 10 days ago for a metastatic lesion in her brain. Her also notes that last night she became "irrational and hostile," which is unusual for her and he has also noted that her speech seems a little off today where she is very precise in her enunciation. PAST MEDICAL HISTORY: Metastatic colon cancer diagnosed in 2014, currently with mets to the right lung, brain, and right adrenal gland; and hypertension. PAST SURGICAL HISTORY: Right hemicolectomy, cataract surgery, partial hysterectomy, gamma knife radiosurgery. HOME MEDICATIONS: 1. Tylenol 500 mg by mouth every 6 hours as needed for pain. 2. Norvasc 5 mg by mouth daily. 3. Vitamin C 1000 mg by mouth daily. 4. Atorvastatin 20 mg by mouth every other day. 5. Baclofen 10 mg by mouth every 6 hours. 6. Calcium carbonate with vitamin D 1 tablet by mouth daily. 7. Cod liver oil 1 capsule by mouth daily. 8. Vitamin B12 1000 mcg by mouth daily. 9. Claritin-D 12 Hour 1 tablet by mouth every 24 hours as needed for allergies. 10. Decadron 6 mg by mouth every 6 hours. 11. Lomotil 1 tablet by mouth 4 times daily as needed for constipation. 12. Epinephrine 0.3 mg IM as needed for anaphylaxis. 13. Nexium 40 mg by mouth daily. 14. Glucosamine/chondroitin 1 tablet by mouth daily. 15. Zofran 4 mg by mouth twice daily as needed for nausea. 16. Oxybutynin 15 mg by mouth daily. 17. Lyrica 75 mg by mouth daily. 18. Compazine 10 mg by mouth every 6 hours as needed for nausea. 19. Red Yeast Rice Extract 1200 mg by mouth every other day. 20. Tramadol 50 mg by mouth every 12 hours as needed for pain. 21. Benadryl 50 mg by mouth every 6 hours as needed for congestion. The patient is not currently on prednisone any longer. We will remove from her med list. ALLERGIES: The patient reports allergies to PENTAZOCINE, , ASPIRIN, CODEINE, OXALIPLATIN, and BEE STINGS. FAMILY HISTORY: Significant for father with CHF. Mother with hypertension. Maternal uncles with kidney disease. SOCIAL HISTORY: The patient has never smoked cigarettes. No recent alcohol use. No illicit drug use. Lives at home with her . REVIEW OF SYSTEMS: A 12-point review of systems negative except for that as noted in the HPI. PHYSICAL EXAMINATION GENERAL: The patient is an elderly female lying in bed in no apparent distress with occasional coughing. VITAL SIGNS: On admission, temperature 100.4, heart rate of 95, respiratory rate of 18, O2 saturation 91% on room air, blood pressure 156/63. Subsequently , the patient became hypoxic and is currently on 3 to 4 L of oxygen. HEENT: Head normocephalic, atraumatic. Eyes: Pupils equal, round, and reactive to light and accommodation. Anicteric sclerae. ENT: Dry mucous membranes. No cervical adenopathy. Thrush noted in the roof of the mouth and posterior oropharynx. LUNGS: Sound clear to auscultation bilaterally. I do not appreciate much in terms of rales or rhonchi. Breath sounds are a bit diminished diffusely. CARDIOVASCULAR: Regular rate and rhythm. S1 and S2 present. No murmurs, gallops, or rubs. ABDOMEN: Soft, nontender, nondistended. Bowel sounds positive. EXTREMITIES: No cyanosis, clubbing, or edema. NEURO: The patient is alert and oriented x3. Cranial nerves II through XII intact. Sensation is intact and symmetric bilaterally. Strength is 5/5 throughout bilateral upper extremities. Has bilateral weakness in hip flexion, is just able to overcome gravity. Hip extension and dorsiflexion and plantar flexion are both 5/5. Speech is not dysarthric, but the patient will occasionally enunciate syllables very deliberately and other times seems more conversational. The patient's states this is out of character for her. LABS AND DIAGNOSTICS: White blood cell count of 19, hemoglobin of 11.7, hematocrit of 34, platelets of 141, 92% neutrophils, 8% bands. INR 1.02. Sodium of 124, potassium 4.3, chloride of 91, carbon dioxide of 25, BUN of 13, creatinine 0.6, glucose of 110. Total bilirubin 0.6, direct bilirubin of 0.2, AST 52, ALT 65. Troponin 0.05. EKG personally reviewed shows normal sinus rhythm. No ischemic changes. Chest x-ray personally reviewed shows bilateral multifocal opacifications. CTA of the chest shows multiple pulmonary parenchymal masses as well as areas of consolidation versus mass throughout both lungs most consistent with neoplasm versus mixed neoplasm and consolidation. There are no pulmonary arterial defect to suggest pulmonary embolism. ASSESSMENT AND PLAN: Sepsis likely secondary to community-acquired pneumonia in the setting of potentially new mets to the lungs in a 71-year-old female with a past medical history of colon cancer with known metastasis to the right lung, brain, and right adrenal gland as well as hypertension. 1. Sepsis 2/2 CAP. The patient has a leukocytosis, low-grade fever with a left shift. She was started on ceftriaxone and azithromycin in the emergency department. We will continue this for now. Blood cultures are pending. We will check a strep and Legionella urine antigens as well. It is difficult at this time to tell how much of her new lung findings are due to infection or potentially new metastasis to the lung. A UA is pending at this time as well as the patient reports incontinence, which is new for her. 2. Behavioral changes and speech changes. I do not appreciate anything focal on neuro exam. The patient's last MRI in our system was in August, that is when she was diagnosed with this new brain lesion and this is what she just recently had gamma knife radiosurgery for. She states she had some imaging in [place] at the time of the surgery, but we do not have any imaging here. We will check a CT of the head and we will defer to Oncology tomorrow. They would like to proceed with MRI if needed to further visualize. 3. Metastatic colon cancer. As noted above, CT imaging of the chest shows potentially new metastatic disease there. We will defer to Oncology about further treatment for this. We will continue her home Decadron for now at 6 mg q.6 hours. 4. Troponin elevation. May be demand ischemia. I did not notice any significant EKG changes, and the patient's report of chest pain seems pleuritic in nature. We will continue to trend the troponins and monitor on telemetry. 5. Hyponatremia. It seems that the patient has been taking good p.o. intake. As noted above, we will check a Legionella urine antigen as she has been reporting some diarrhea with her pulmonary symptoms as well. She has received 2 L of IV fluid in the emergency department. We will hold off on any fluid for now and recheck a BMP in the morning. 6. Hypertension. Blood pressures have been stable. We will continue her home Norvasc. 7. DVT prophylaxis. Lovenox subcu. 8. Code status. The patient is a full code. TIME SPENT: Total time spent on this admission 60 minutes, with over half the time was spent [id number] with the patient counseling and coordinating care. [id number]/[facility] #: [id number] ROBBY
[2017-09-16 06:30] LABS: Hematocrit 31 % (35-47); Hemoglobin 10.6 g/dl (12.0-16.0); Mean Corpuscular HGB Conc 34 g/dl (31-36); Mean Corpuscular Hemoglobin 34 pg (27-31); Mean Corpuscular Volume 101 fL (80-97); Mean Platelet Volume 9 um3 (7.4-10.4); Red Cell Distribution Width 18 % (10.5-15); White Blood Count 15.8 10^3/ul (3.5-10.8)
[2017-09-16 06:48] LABS: Albumin 2.5 g/dL (3.2-5.2); BUN/Creatinine Ratio 19.6 (8-20); Calcium 8.8 mg/dL (8.6-10.3); EGFR African American 137.2 (>60); EGFR Non-African American 106.7 (>60); Potassium 4.1 mmol/L (3.5-5.0); Total Bilirubin 0.6 mg/dL (0.2-1.0); Total Protein 5.5 g/dL (6.4-8.9)
[2017-09-16] MEDS: Omeprazole CAP* 20 MG PO SCH (08:21)
[2017-09-16] MEDS: Ascorbic Acid TAB* 500 MG PO SCH (08:27)
[2017-09-16] MEDS: amLODIPine TAB* 5 MG PO SCH (08:27)
[2017-09-16] MEDS: Pregabalin CAP(*) 25 MG PO SCH (08:27)
[2017-09-16] MEDS: Cyanocobalamin TAB* 500 MCG PO SCH (08:30)
--- NOTE | 2017-09-16 10:00 | PN ---
Progress Note - Progress Note Date of Service: 09/16/17 SOAP: Subjective: []Feeling a little better today. Had gamma knife last week. Has been "loopy" since procedure. Cough x 3 days, dry, consistent. Has not noticed any fevers at home. Has had change in voice and some difficulty swallowing. No pain. Eating well, no nausea. No change in urination. Acetaminophen (Tylenol Tab*) 650 mg PO Q4H PRN PRN Reason: FEVER/PAIN Amlodipine Besylate (Norvasc Tab*) 5 mg PO DAILY [facility] Last Admin: 09/16/17 08:27 Dose: 5 mg Ascorbic Acid (Vitamin C Tab*) 1,000 mg PO DAILY [facility] Last Admin: 09/16/17 08:27 Dose: 1,000 mg Baclofen (Lioresal Tab*) 10 mg PO Q6HR [facility] Last Admin: 09/16/17 05:35 Dose: Not Given Cyanocobalamin (Vitamin B12 Tab*) 1,000 mcg PO MoWeFr [facility] Last Admin: 09/16/17 08:30 Dose: 1,000 mcg Dexamethasone (Decadron Tab*) 6 mg PO Q6H [facility] Last Admin: 09/16/17 04:32 Dose: 6 mg Diphenoxylate HCl/Atropine (Lomotil Tab*) 1 tab PO QID PRN PRN Reason: CONSTIPATION Last Admin: 09/16/17 08:40 Dose: 1 tab Enoxaparin Sodium (Lovenox(*)) 40 mg SUBCUT Q24H [facility] Last Admin: 09/16/17 00:37 Dose: 40 mg Fluconazole (Diflucan 100 Mg Tab*) 200 mg PO DAILY [facility] Guaifenesin (Robitussin*) 5 ml PO Q4H PRN PRN Reason: COUGH Haloperidol (Haldol Tab*) 1 mg PO Q2H PRN PRN Reason: CONFUSION Ceftriaxone Sodium 1,000 mg/ (Sodium Chloride) 50 mls @ 200 mls/hr IVPB Q24H [facility] Azithromycin 500 mg/ Sodium (Chloride) 250 mls @ 250 mls/hr IVPB Q24H [facility] Sodium Chloride (Ns 0.9% 1000 Ml*) 1,000 mls @ 100 mls/hr IV PER RATE [facility] Nystatin (Nystatin Suspension*) 500,000 units PO QID [facility] Stop: 09/22/17 21:24 Last Admin: 09/16/17 08:27 Dose: 500,000 units Omeprazole (Prilosec Cap*) 20 mg PO DAILY@0730 [facility] PRN Reason: Protocol Last Admin: 09/16/17 08:21 Dose: 20 mg Ondansetron HCl (Zofran Inj*) 4 mg IV Q4H PRN PRN Reason: NAUSEA/VOMITING Pregabalin (Lyrica Cap(*)) 75 mg PO DAILY [facility] Last Admin: 09/16/17 08:27 Dose: 75 mg Prochlorperazine (Compazine Tab*) 10 mg PO Q6H PRN PRN Reason: NAUSEA Last Admin: 09/16/17 08:40 Dose: 10 mg Tramadol HCl (Ultram*) 50 mg PO Q12HR PRN PRN Reason: PAIN Objective: [] Vital Signs Temp Pulse Resp BP Pulse Ox 99.0 F 71 16 127/50 94 09/16/17 07:38 09/16/17 07:38 09/16/17 08:40 09/16/17 07:38 09/16/17 07:38 Telemetry - PVCs, APCs, no tachy, no irregular rhythms HEENT - Thrush Some crackles both sides, back is warm. No wheezing RRR S1S2 +BS, mild obese, NT/ND Ext w/o edema Assessment: []71 year old with metastatic colon cance and INDIGO VAT TENDER CLOTH lesion. S/p gamma knife last week who presents with low grade fever, respiratory symptoms and pulmonary infiltrates. Ddx: CAP, hospital acquired pneumonia from [place], aspiration in that order. She is immuno compromised from chemotherapy and steroids. Plan: []1. Pneumonia. Seems improved on current antibiotics and will keep same today. Change to meropenem for additional fevers given possible HAP. No respiratory distress this am. 2. Troponin is stable and telemetry negative, d/c Telemetry, 3. Thrush. Fluconizole 200 mg po daily. - Drug interaction with Lipitor, will hold 4. INDIGO VAT TENDER CLOTH disease. Fluconazole will decrease effective dose of Dex, once off Fluconazole consider going to 6 mg tid 5. Delirium. From gamma knife, pneumonia, INDIGO VAT TENDER CLOTH cancer. Follow. Haldol PRN and avoid benzos and anticholenergic medication. 6. Hyponatremia. NS at 100 cc/hr
[2017-09-16] MEDS: Fluconazole 100 MG TAB* TAB PO SCH (10:36)
[2017-09-16] MEDS: NS 0.9% 1000 ML* 1,000 ML IV SCH ×2 (10:43→21:45)
[2017-09-16] MEDS ORDERED: cefTRIAXone VIAL(*) 1,000 MG in NS 0.9% 50 ML* 50 ML IVPB SCH (19:30)
[2017-09-16] MEDS ORDERED: Azithromycin IV(*) 500 MG in NS 0.9% 250 ML* 250 ML IVPB SCH (20:00)
[2017-09-16] MEDS: Haloperidol TAB* 1 MG PO PRN (21:39)
[2017-09-16] MEDS ORDERED: Haloperidol INJ IV/IM* 5 MG/ML AMP IV SLOW PU PRN (23:58)
[2017-09-17] MEDS: Baclofen TAB* 10 MG PO SCH ×2 (00:51→05:40)
[2017-09-17] MEDS: Dexamethasone TAB* 6 MG PO SCH ×4 (05:40→21:47)
[2017-09-17] MEDS: Omeprazole CAP* 20 MG PO SCH (05:40)
[2017-09-17 06:45] LABS: Hematocrit 30 % (35-47); Hemoglobin 10.1 g/dl (12.0-16.0); Mean Corpuscular HGB Conc 33 g/dl (31-36); Mean Corpuscular Hemoglobin 34 pg (27-31); Mean Corpuscular Volume 102 fL (80-97); Mean Platelet Volume 9 um3 (7.4-10.4); Red Cell Distribution Width 19 % (10.5-15); White Blood Count 14.5 10^3/ul (3.5-10.8)
[2017-09-17 06:55] LABS: Albumin 2.2 g/dL (3.2-5.2); BUN/Creatinine Ratio 31.9 (8-20); Calcium 8.7 mg/dL (8.6-10.3); EGFR Non-African American 130.6 (>60); Globulin 3.2 g/dL (2-4); Magnesium 1.8 mg/dL (1.9-2.7); Potassium 3.6 mmol/L (3.5-5.0); Total Bilirubin 0.4 mg/dL (0.2-1.0); Total Protein 5.4 g/dL (6.4-8.9)
[2017-09-17] MEDS: Nystatin SUSPENSION* 100000 UNITS/ML 5 ML UDC PO SCH ×4 (07:26→21:41)
[2017-09-17] MEDS ORDERED: Diphenoxylat/Atrop 2.5-0.025M* 1 TAB PO PRN (07:26)
--- NOTE | 2017-09-17 07:26 | PN ---
Progress Note - Progress Note Date of Service: 09/17/17 SOAP: Subjective: feeling better this morning. quite disoriented over night. this am able to speak fairly articulately to me. denies headaches, nausea, vomiting. cough improving. denies SOB. Objective: Vital Signs Temp Pulse Resp BP Pulse Ox 98.1 F 63 18 140/63 90 09/17/17 03:55 09/17/17 03:55 09/17/17 03:55 09/17/17 03:55 09/17/17 03:55 lying flat in bed in NAD perr eomi op-mild oral thrush CTA bl s1s2 nl soft nt +Bs no le edema A+O x 3, nonfocal neurological exam, appropriate speech this am skin intact port clean Laboratory Results - last 24 hr 09/17/17 09/17/17 06:25 06:25 WBC 14.5 H RBC 3.00 L Hgb 10.1 L Hct 30 L MCV 102 H MCH 34 H MCHC 33 RDW 19 H Plt Count 125 L MPV 9 Neut % (Auto) 98.4 H Lymph % (Auto) 0.9 L Logan % (Auto) 0.5 L Eos % (Auto) 0 Baso % (Auto) 0.2 Absolute Neuts (auto) 14.3 H Absolute Lymphs (auto) 0.1 L Absolute Monos (auto) 0.1 Absolute Eos (auto) 0 Absolute Basos (auto) 0 Absolute Nucleated RBC 0 Nucleated RBC % 0 Sodium 132 L Potassium 3.6 Chloride 102 Carbon Dioxide 24 Anion Gap 6 BUN 15 Creatinine 0.47 L Est GFR ( Amer) 168.0 Est GFR (Non-Af Amer) 130.6 BUN/Creatinine Ratio 31.9 H Glucose 115 H Calcium 8.7 Magnesium 1.8 L Total Bilirubin 0.40 AST 33 ALT 45 Alkaline Phosphatase 87 Total Protein 5.4 L Albumin 2.2 L Globulin 3.2 Albumin/Globulin Ratio 0.7 L Microbiology 09/16/17 22:20 Urine Legionella Urinary Antigen - Final 09/16/17 22:20 Urine Streptococcus pneumoniae Ag Screen - Final Positive Legionella Antigen Negative S. pneumo Antigen head ct and chest CT: both personally reviewed, impression as per MAYE Acetaminophen (Tylenol Tab*) 650 mg PO Q4H PRN PRN Reason: FEVER/PAIN Amlodipine Besylate (Norvasc Tab*) 5 mg PO DAILY [facility] Last Admin: 09/16/17 08:27 Dose: 5 mg Ascorbic Acid (Vitamin C Tab*) 1,000 mg PO DAILY [facility] Last Admin: 09/16/17 08:27 Dose: 1,000 mg Baclofen (Lioresal Tab*) 10 mg PO Q6HR [facility] Last Admin: 09/17/17 05:40 Dose: 10 mg Cyanocobalamin (Vitamin B12 Tab*) 1,000 mcg PO MoWeFr [facility] Last Admin: 09/16/17 08:30 Dose: 1,000 mcg Dexamethasone (Decadron Tab*) 6 mg PO Q6H [facility] Last Admin: 09/17/17 05:40 Dose: 6 mg Diphenoxylate HCl/Atropine (Lomotil Tab*) 1 tab PO QID PRN PRN Reason: CONSTIPATION Last Admin: 09/16/17 08:40 Dose: 1 tab Enoxaparin Sodium (Lovenox(*)) 40 mg SUBCUT Q24H [facility] Last Admin: 09/16/17 21:39 Dose: 40 mg Fluconazole (Diflucan 100 Mg Tab*) 200 mg PO DAILY [facility] Last Admin: 09/16/17 10:36 Dose: 200 mg Guaifenesin (Robitussin*) 5 ml PO Q4H PRN PRN Reason: COUGH Haloperidol (Haldol Tab*) 1 mg PO Q2H PRN PRN Reason: CONFUSION Last Admin: 09/16/17 21:39 Dose: 1 mg Haloperidol Lactate (Haldol Inj Iv/Im*) 2 mg IV SLOW PU Q6H PRN PRN Reason: AGITATION Sodium Chloride (Ns 0.9% 1000 Ml*) 1,000 mls @ 100 mls/hr IV PER RATE [facility] Last Admin: 09/16/17 21:45 Dose: 100 mls/hr Levofloxacin/Dextrose (Levaquin 750 Mg Ivpremix(*)) 750 mg in 150 mls @ 100 mls /hr IVPB Q24H [facility] Nystatin (Nystatin Suspension*) 500,000 units PO QID [facility] Stop: 09/22/17 21:24 Last Admin: 09/16/17 21:39 Dose: 500,000 units Omeprazole (Prilosec Cap*) 20 mg PO DAILY@0730 [facility] PRN Reason: Protocol Last Admin: 09/17/17 05:40 Dose: 20 mg Ondansetron HCl (Zofran Inj*) 4 mg IV Q4H PRN PRN Reason: NAUSEA/VOMITING Pregabalin (Lyrica Cap(*)) 75 mg PO DAILY [facility] Last Admin: 09/16/17 08:27 Dose: 75 mg Prochlorperazine (Compazine Tab*) 10 mg PO Q6H PRN PRN Reason: NAUSEA Last Admin: 09/16/17 08:40 Dose: 10 mg Tramadol HCl (Ultram*) 50 mg PO Q12HR PRN PRN Reason: PAIN Assessment: 71 yo F w metastatic CRC, recently on oral targeted therapy via the MATCH trial at [place] with recent GLO[employer]AL progression and gamma-knife at [place], now admitted with weakness, fever and AMS and found to have Legionella Pneumonia. I discussed this with Heather in person and her , Ravi, by phone at length. I suspect that her AMS is a combination of compromised protoplasm ( metastatic GLOBAL PROFESSIONAL disease) with active lung infection and hyponatremia (ie-toxic metabolic encephalopathy) rather than GLO[employer] PROFESSIONAL infection or progression of disease, particularly as she does seem to be improving with current treatment. 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
[2017-09-17] MEDS: Pregabalin CAP(*) 25 MG PO SCH (07:27)
[2017-09-17] MEDS: Fluconazole 100 MG TAB* TAB PO SCH ×2 (07:28→07:32)
[2017-09-17] MEDS: Ascorbic Acid TAB* 500 MG PO SCH (07:29)
[2017-09-17] MEDS: amLODIPine TAB* 5 MG PO SCH (07:31)
[2017-09-17] MEDS: Levofloxacin 750 MG IVPREMIX(* 750 MG/150 ML BAG IVPB SCH (07:31)
[2017-09-17] MEDS: NS 0.9% 1000 ML* 1,000 ML IV SCH (07:37)
[2017-09-17] MEDS ORDERED: Atorvastatin* 20 MG TAB PO SCH (09:00)
[2017-09-17 12:13] LABS: Urine Bacteria 1+ (Absent); Urine Bilirubin Negative (Negative); Urine Glucose 2+(150 mg/dL) (Negative); Urine Nitrite Negative (Negative)
--- NOTE | 2017-09-17 14:36 | RAD ---
Indication: Confusion. CT of the brain was performed without IV contrast. Comparison is made with previous exam dated September 15, 2017. Ventricular structures are midline. No midline shift is noted. The extra-axial spaces are unremarkable. There is a slightly hyperdense lesion in the left occipital lobe. Adjacent vasogenic edema is noted. No midline shift is noted. Mastoid air cells and paranasal sinuses are otherwise unremarkable. IMPRESSION: Mass in the left occipital lobe which is unchanged from previous exam. Adjacent vasogenic edema in the subcortical white matter is similar to that seen previously. No midline shift or hemorrhage is noted.
[2017-09-17] MEDS: Haloperidol TAB* 1 MG PO PRN (14:52)
[2017-09-17] MEDS ORDERED: LORazepam INJ* 2 MG/ML 1 ML VIAL IV PUSH ONE (19:40)
[2017-09-17] MEDS: Enoxaparin(*) 40 MG/0.4 ML SYR SUBCUT SCH (21:43)
--- NOTE | 2017-09-17 23:46 | CONS ---
NEUROLOGY CONSULTATION: DATE OF CONSULT: 09/17/17 REQUESTING PHYSICIAN: Shirlene Middleton MD REASON FOR CONSULT: Delirium. HISTORY OF PRESENT ILLNESS: Heather Krishnan is a 71-year-old woman with a history of hypertension as well as metastatic colon cancer to the right lung, brain (left occipital lobe) and right adrenal gland status post surgery, chemotherapy/radiation as well as recent gamma knife surgery who came to the hospital on 09/15/17 with shortness of breath and congestion. She was admitted and found to have pneumonia secondary to Legionella and was placed on appropriate antibiotics. At the time of her admission, she had a leukocytosis as well as a low-grade fever. Her leukocytosis has been improving and she has defervesced, but Neurology was asked to evaluate the patient because of behavioral changes as well as changes in her motor coordination. In review of the records, it appears that her noted on the day of admission that the previous night she had become "irrational and hostile" which is not like her and he also noticed a change in her speech where she was very precise in her enunciation and less conversational in her speech, which is also out of character for her. Since her admission, she has been noted to have waxing and waning patterns of behaviors that have been described as bizarre and have included disrobing multiple times last night and attempting to walk around the unit. Nursing notes also indicate that she was speaking in a staccato manner and very matter of fact. Yesterday evening, the patient was found saying that she was going on an archaeological dig; however, she was completely oriented at that time. Last night and today, nursing notes indicate that she wanted to sleep with her head at the foot of her bed in the position and mentioned the desire to disrobe as previously mentioned. Today, the family has noted that she has been unable to feed herself and seems to have no "hand-eye coordination." Throughout the afternoon, she has also been noted to have increasing instances of strange body postures and one of the nursing notes indicate that she had 1 hand reaching out touching the wall and a sheet covering her face. On my evaluation, the patient is somewhat unreliable in her giving of the history. She indicates that she has had a cough for approximately a year and when asked the duration of most of her symptoms, she responds that it has been a year, which is not the case. She endorses pain in every body part that she is questioned about. Of note, the occipital lobe lesion was discovered in mid August after she went to Dr. Onofre for cataract removal and he noted a field cut. No biopsy was performed of this lesion and she had radiosurgery a little less than 2 weeks ago at [facility]. She has also been receiving targeted chemotherapy as part of the MATCH trial at [place] with the last treatment being about 3 weeks ago. There is no past history of psychiatric illness. She denies difficulties with swallowing, numbness/tingling in the extremities, vertigo. She endorses blurry vision. PAST MEDICAL HISTORY: 1. Metastatic colon cancer initially diagnosed in 2014, currently with metastases to the right lung, left occipital lobe, and right adrenal gland. 2. Hypertension. 3. Hyperlipidemia. PAST SURGICAL HISTORY: 1. Right hemicolectomy. 2. Cataract surgery. 3. Partial hysterectomy. 4. Gamma knife radiosurgery. HOME MEDICATIONS: 1. Tylenol 500 mg every 6 hours as needed for pain. 2. Norvasc 5 mg daily. 3. Vitamin C 1000 mg daily. 4. Atorvastatin 20 mg every other day. 5. Baclofen 10 mg every 6 hours. 6. Calcium carbonate with vitamin D 1 tablet daily. 7. Cod liver oil daily. 8. Vitamin B12 1000 mcg daily. 9. Claritin-D 1 tablet every 24 hours as needed. 10. Decadron 6 mg every 6 hours. 11. Lomotil 4 times daily as needed. 12. Epinephrine as needed for anaphylaxis. 13. Nexium 40 mg daily. 14. Glucosamine and chondroitin daily. 15. Zofran 4 mg twice daily as needed. 16. Oxybutynin 15 mg daily. 17. Lyrica 75 mg daily. 18. Compazine 10 mg every 6 hours as needed for nausea. 19. Red yeast rice extract 1200 mg every other day. 20. Tramadol 50 mg every 12 hours as needed for pain. 21. Benadryl 50 mg q.6 hours as needed. In-hospital medications are as mentioned in the home medication list except that she is receiving Levaquin 750 mg daily as well as fluconazole 100 mg daily , Lovenox 40 mg daily, and Haldol 1 mg q.2 hours p.r.n. confusion which she last received at 1452 today. She is also getting nystatin 4 times daily. In addition, her home medications including baclofen, Compazine, and Lyrica have been held. I note that she last received Compazine yesterday morning at 8:40 and Lyrica this morning at 7:30. She has not received Tramadol. ALLERGIES: PENTAZOCINE, PROPOXYPHENE, ASPIRIN, BEE VENOM, CODEINE, OXALIPLATIN. FAMILY HISTORY: Father with CHF. Mother with hypertension. Maternal uncle with kidney disease. SOCIAL HISTORY: She is a nonsmoker and no recent alcohol use. No illicit drug use. She lives at home with her . Her children describe her as the matriarch of the family. REVIEW OF SYSTEMS: As per the HPI. PHYSICAL EXAM: Vital Signs: Temperature 98, blood pressure 146/61, heart rate 65, oxygen saturation is 93% on room air. On general examination, she is a pleasant woman, in no acute distress. Her heart is in a regular rate and rhythm with no murmurs, rubs, or gallops. The right lung pond were rhonchorous. There is no extremity edema. Her skin is intact without rashes. In general, she has nearly continuous purposeless movements of her upper extremities. They are frequently fully extended and she raises them above her head and out to the sides. She also stretches them across herself as though she is giving herself a hug. She moves her arms without any regard to objects in the way and regularly hits her hand into the bed rail and hit the examiner several times and also knocked the bed alarm magnet off the device, which was hooked behind her bed rail up near her head. Her movements are slow and controlled. She also had some waxy flexibility characteristics (examiner was able to position her arms, but she did not hold the posture for long, but rather continued the above mentioned slow controlled movements). On neurologic examination, her speech is somewhat monotone. She frequently answers in single word answers and very quickly. She swore on several occasions. She stated that the date was 11/17/16. She did correctly state her date of . She was able to register 3/3 objects and recalled all 3 objects after a period of distraction. She was able to name objects and parts of wholes. She was unable to mimic a salute in our typical fashion, though she did raise her arm above her head and say "Hail...". She was unable to mimic brushing her teeth or unscrewing a light bulb. She did have some odd speech at times and would sometimes mention things that were out of context for the situation. On cranial nerve examination, the pupils were equal, round, and reactive from 4 to 2 mm bilaterally. Versions are full without nystagmus. Her visual pond appeared full and I did not detect any obvious field cut. Facial sensation and musculare is full and symmetric. Her hearing is intact to finger rub. The palate elevates symmetrically and the tongue is midline. On motor examination, she has paratonia in the right greater than left upper extremity, though when she is able to relax, her tone appears relatively normal. Strength does appear full in the upper and lower extremities, though she had difficulty following the commands of the exam given her nearly continuous purposeless movements. Sensation was intact to pinprick in the upper and lower extremities but she consistently answered the opposite when asked which side was being touched. Reflexes were 2+ throughout with downgoing toes. Heel-to- dempsey was intact without ataxia. She had significant difficulty cooperating with [id number], but there was no clear ataxia. When asked to touch the examiner's hand with her right hand, she grabbed the examiner's entire hand and would not release until asked to do so. When asked to mimic the shape of the examiner's hand, she was able to do so and complete the maneuver with difficulty. When asked to do this on the left, she had more difficulty and looked off to her right and reached far out across her body rather than to her nose. I did not attempt to ambulate her. LABORATORY DATA/DIAGNOSTIC STUDIES: Her CMP is notable for a sodium of 132 which is improved from 128, creatinine 0.47, glucose 115. Magnesium 1.8. Her LFTs were slightly elevated on admission, but are normalized today. Total protein is 5.4, albumin 2.2. Her troponin peaked at 0.05 and was 0.04 at the last measurement. Her white count shows improvement to 14.5 from 19 on admission with 98% neutrophils, hematocrit is 30, and platelets are 125,000. Her urinalysis showed no evidence for infection, but she did have Legionella antigen present in her urine. Strep pneumo antigen was negative. I reviewed her brain CTs from 09/15/17 and 09/17/17. This shows a hyperdense area in the left parietooccipital region with associated vasogenic edema. I believe this area is hyperdense on 09/15/17 exam secondary to contrast that she received for a chest CTA and is improved on 09/17/17 exam. I discussed this with Dr. Lagos from Radiology who agrees that it is much less likely to represent hemorrhage in that area. I also reviewed her MRI of the brain from mid August, which shows the metastatic lesion in the left occipital lobe and associated vasogenic edema without any increase signal on GRE. There is no significant mass effect or shift. IMPRESSION: Heather Krishnan is a 71-year-old woman with metastatic colon cancer who recently underwent gamma knife surgery to a left occipital metastatic lesion and was admitted on 09/15/17 with pneumonia secondary to Legionella, who now presents with some encephalopathy as well as marked abnormal movements, which are primarily characterized by slow and continuous purposeless movements with some waxy flexibility. She has also had changes in her speech according to the family, which at times have been described as staccato or somewhat robotic like. She does have some delirium as evidenced by her disorientation, but I would also consider catatonia in this case given her motor manifestations. I discussed this with Dr. Middleton and I am going to give her a trial of 1 mg lorazepam IV and see if there is any improvement. If there is no improvement, but she tolerates the dose well, then I may challenge her again with another 1 mg IV. I discussed this with the patient as well as her daughter and son-in-law at the bedside and also with the patient's daughter- in-law out of state who is an emergency physician. ADDENDUM: I also recommend discontinuing prn use of antipsychotic medications, as this can make catatonia worse. Compazine should remain discontinued as well. [id number]/[facility] #: [id number] [facility]
[2017-09-18] MEDS: NS 0.9% 1000 ML* 1,000 ML IV SCH ×2 (00:10→13:22)
[2017-09-18] MEDS: Dexamethasone TAB* 6 MG PO SCH ×4 (05:20→23:41)
[2017-09-18] MEDS: LORazepam INJ* 2 MG/ML 1 ML VIAL IV PUSH SCH ×3 (05:21→21:19)
[2017-09-18] MEDS: Levofloxacin 750 MG IVPREMIX(* 750 MG/150 ML BAG IVPB SCH (05:26)
[2017-09-18 05:41] LABS: Hematocrit 30 % (35-47); Hemoglobin 10.2 g/dl (12.0-16.0); Mean Corpuscular HGB Conc 34 g/dl (31-36); Mean Corpuscular Hemoglobin 34 pg (27-31); Mean Corpuscular Volume 100 fL (80-97); Mean Platelet Volume 9 um3 (7.4-10.4); Red Blood Count 3.01 10^6/ul (4.0-5.4); Red Cell Distribution Width 18 % (10.5-15); White Blood Count 14.9 10^3/ul (3.5-10.8)
[2017-09-18 06:03] LABS: BUN/Creatinine Ratio 37.8 (8-20); Calcium 8.6 mg/dL (8.6-10.3); EGFR African American 176.6 (>60); EGFR Non-African American 137.4 (>60); Magnesium 1.7 mg/dL (1.9-2.7); Potassium 3.7 mmol/L (3.5-5.0)
[2017-09-18] MEDS ORDERED: Magnesium Sulfate 2 GM IV* 2 GM/50 ML BAG IVPB ONE (08:27)
[2017-09-18] MEDS: Nystatin SUSPENSION* 100000 UNITS/ML 5 ML UDC PO SCH ×4 (09:51→23:53)
[2017-09-18] MEDS: Omeprazole CAP* 20 MG PO SCH (09:52)
[2017-09-18] MEDS: Ascorbic Acid TAB* 500 MG PO SCH (09:52)
[2017-09-18] MEDS: amLODIPine TAB* 5 MG PO SCH (09:52)
[2017-09-18] MEDS: Fluconazole 100 MG TAB* TAB PO SCH (09:53)
--- NOTE | 2017-09-18 10:33 | PN ---
Subjective Date of Service: 09/18/17 Interval History: HOSPITALIST PROGRESS NOTE Patient seen and examined at bedside. She seems to be more oriented today. Able to tell me she did not sleep well last night due to hospital noises and that her just left to go grab a cup of coffee. Denies pain, dyspnea, or other complaints. Family History: Unchanged from Admission Social History: Unchanged from Admission Past Medical History: Unchanged from Admission Objective Active Medications: Acetaminophen (Tylenol Tab*) 650 mg PO Q4H PRN PRN Reason: FEVER/PAIN Amlodipine Besylate (Norvasc Tab*) 5 mg PO DAILY [facility] Last Admin: 09/18/17 09:52 Dose: 5 mg Ascorbic Acid (Vitamin C Tab*) 1,000 mg PO DAILY [facility] Last Admin: 09/18/17 09:52 Dose: 1,000 mg Cyanocobalamin (Vitamin B12 Tab*) 1,000 mcg PO MoWeFr [facility] Last Admin: 09/16/17 08:30 Dose: 1,000 mcg Dexamethasone (Decadron Tab*) 6 mg PO Q6H [facility] Last Admin: 09/18/17 09:53 Dose: 6 mg Diphenoxylate HCl/Atropine (Lomotil Tab*) 1 tab PO QID PRN PRN Reason: DIARRHEA Enoxaparin Sodium (Lovenox(*)) 40 mg SUBCUT Q24H [facility] Last Admin: 09/17/17 21:43 Dose: 40 mg Fluconazole (Diflucan 100 Mg Tab*) 100 mg PO DAILY [facility] Last Admin: 09/18/17 09:53 Dose: 100 mg Guaifenesin (Robitussin*) 5 ml PO Q4H PRN PRN Reason: COUGH Last Admin: 09/18/17 03:25 Dose: 5 ml Sodium Chloride (Ns 0.9% 1000 Ml*) 1,000 mls @ 100 mls/hr IV PER RATE [facility] Last Admin: 09/18/17 00:10 Dose: 100 mls/hr Levofloxacin/Dextrose (Levaquin 750 Mg Ivpremix(*)) 750 mg in 150 mls @ 100 mls /hr IVPB Q24H [facility] Last Admin: 09/18/17 05:26 Dose: 100 mls/hr Lorazepam (Ativan Inj*) 0.5 mg IV PUSH Q8H [facility] Last Admin: 09/18/17 05:21 Dose: 0.5 mg Nystatin (Nystatin Suspension*) 500,000 units PO QID [facility] Stop: 09/22/17 21:24 Last Admin: 09/18/17 09:51 Dose: 500,000 units Omeprazole (Prilosec Cap*) 20 mg PO DAILY@0730 [facility] PRN Reason: Protocol Last Admin: 09/18/17 09:52 Dose: 20 mg Ondansetron HCl (Zofran Inj*) 4 mg IV Q4H PRN PRN Reason: NAUSEA/VOMITING Tramadol HCl (Ultram*) 50 mg PO Q12HR PRN PRN Reason: PAIN Vital Signs 09/17/17 09/18/17 09/18/17 23:14 03:09 05:21 Temperature 98.4 F 98.7 F Pulse Rate 77 67 Respiratory 20 19 18 Rate Blood Pressure 149/74 151/73 (mmHg) O2 Sat by Pulse 97 91 Oximetry Oxygen Devices in Use Now: Nasal Cannula - 2 liters Appearance: Elderly lady lying in bed in NAD. Eyes: No Scleral Icterus Ears/Nose/Mouth/Throat: Mucous Membranes Moist Neck: Trachea Midline Respiratory: Symmetrical Chest Expansion and Respiratory Effort, - - BS+ bilaterally with fine crackles on right base Cardiovascular: RRR - Normal S1 and S2 Abdominal: NL Sounds; No Tenderness; No Distention Neurological: - - AAOx2 (self and place), ENGL[place] Nutrition: Taking PO's Result Diagrams: 09/18/17 05:22 09/18/17 05:22 Assess/Plan/Problems-Billing Assessment: Mrs. Krishnan is a 71yo F with PMH of metastatic colon CA (right lung, right adrenal, left occipital lobe), HTN, who presented to ED with c/o cough and congestion, found to have Legionella pneumonia. - Patient Problems (1) Sepsis Comment: - Patient met sepsis criteria on admission with fever, tachycardia, and leukocytosis. - Source is Legionella pneumonia. (2) Legionella pneumonia Comment: - Improving. - Continue Levofloxacin. (3) Delirium Comment: - Neurology input appreciated. - This may be secondary to her infection and it seems to be improving. (4) Catatonia Comment: - Neuro input appreciated - her presentation with confusion, abnormal movements, changes in speech, suggest catatonia, and she seems to be responding well to Ativan, as she's markedly different today. (5) Hyponatremia Comment: - Likely secondary to Legionella pneumonia. - Trending up. (6) Thrush Comment: - Improving. - Continue Fluconazole. (7) DVT prophylaxis Comment: - Lovenox. (8) Full code status Status and Disposition: Inpatient. updated at bedside.
[2017-09-18] MEDS: Enoxaparin(*) 40 MG/0.4 ML SYR SUBCUT SCH (23:44)
[2017-09-19] MEDS: NS 0.9% 1000 ML* 1,000 ML IV SCH ×3 (00:03→23:43)
--- NOTE | 2017-09-19 01:18 | PN ---
NEUROLOGY FOLLOWUP: DATE OF FOLLOWUP: 09/18/17 OVERNIGHT EVENTS: No acute overnight events. Review of nursing notes indicates that the patient was much improved over night. She was not exhibiting any abnormal movements and was moved to a different room. She indicates to me that she did not sleep all that well. She does feel that she is doing better today, but she spoke extensively about the hospital food and that her was getting her lunch from [employer] and took a great deal of time trying to recall all of the details of that. No family was present at the time of my visit. Medications were reviewed and this is not an inclusive list; but include, vitamin B12 of 1000 mcg on Tuesday, Tuesday, and Tuesday; Decadron 6 mg q. 6 hours; Diflucan; Levaquin 750 mg daily; lorazepam 0.5 mg IV q. 8 hours which was given at 5 this morning and then again around 1:20 p.m. Haldol was discontinued after my evaluation last night. PHYSICAL EXAMINATION: Vital Signs: Temperature 97.3, blood pressure 151/69, heart rate 67, oxygen saturation 90% on room air. On general examination she was in no acute distress. She did appear somewhat tired. She was seated in the chair beside her bed. Her heart was in a regular , rate, and rhythm. There were some crackles in the right lung. Her skin is intact. On neurologic examination she was fully awake, alert, and oriented. She was able to explain the cookie theft picture. She was able to name all objects on the stroke card, though she initially called the hammock a cot. As mentioned above, she was somewhat tangential and excessively detail oriented when describing the food that her would be bringing back for her. In addition, she also seemed to have some word-finding difficulties versus some thought blocking. On cranial nerve testing her versions were full without nystagmus. Cox are full to confrontation bilaterally. Fascial sensation and musculature are full and symmetric. She did appear to have a little bit of fine tremor in her upper extremities with posture today. There is no pronator drift and her strength is full. Sensation was intact and she was correctly identifying her right and left sides today. [id number] was intact without ataxia. There were no abnormal movements noted today. Her tone is normal. She was not ambulated. DATA: CBC shows a white count of 14.9, and 98% neutrophils, hematocrit of 30 which is stable and hemoglobin of 10.2, platelets of 142 which are improved from 125 and more consistent with her admission. Chemistry panel shows a stable sodium of 132. Her urine culture showed no growth. IMPRESSION: A 71-year-old woman with metastatic colon cancer with a left occipital brain lesion which underwent gamma knife radiosurgery about 2 weeks ago, who came in with legionella pneumonia as well as behavioral changes and abnormal movements. Her presentation is most consistent with catatonia and she is responding well to scheduled Ativan. I would like to ask psychiatry to get involved for the longer- term management of catatonia and I spoke with Dr. Guevara about this earlier today. For now I will continue her on 0.5 mg lorazepam 3 times daily with hold parameters for sedation and respiratory rate. I believe that she may have been susceptible to this secondary to her brain metastasis +/- the presence of the pneumonia. I will speak to family when they are available. [id number]/[facility] #: [id number] MTDD
[2017-09-19] MEDS: Dexamethasone TAB* 6 MG PO SCH ×3 (04:47→18:35)
[2017-09-19] MEDS: LORazepam INJ* 2 MG/ML 1 ML VIAL IV PUSH SCH ×2 (04:53→20:54)
[2017-09-19] MEDS: Levofloxacin 750 MG IVPREMIX(* 750 MG/150 ML BAG IVPB SCH (05:47)
[2017-09-19] MEDS: amLODIPine TAB* 5 MG PO SCH (09:20)
[2017-09-19] MEDS: Ascorbic Acid TAB* 500 MG PO SCH (09:20)
[2017-09-19] MEDS: Fluconazole 100 MG TAB* TAB PO SCH (09:20)
[2017-09-19] MEDS: Nystatin SUSPENSION* 100000 UNITS/ML 5 ML UDC PO SCH ×4 (09:20→21:05)
[2017-09-19] MEDS: Omeprazole CAP* 20 MG PO SCH (09:20)
[2017-09-19] MEDS: Cyanocobalamin TAB* 500 MCG PO SCH ×2 (09:30→09:43)
--- NOTE | 2017-09-19 11:17 | PN ---
Progress Note - Progress Note Date of Service: 09/19/17 SOAP: Subjective: []Overall better then over weekend. However, continues to have periods of catatonic state. describes her becoming unresponsive, holding hands straight out and mouth open. Was in such a state this am when physical therapy came by and she could not do PT. Also, periods of confusion and delirium. did feel that Ativan improved symptoms quickly. No fevers, eating but does not like food. No SOB. Acetaminophen (Tylenol Tab*) 650 mg PO Q4H PRN PRN Reason: FEVER/PAIN Amlodipine Besylate (Norvasc Tab*) 5 mg PO DAILY [facility] Last Admin: 09/19/17 09:20 Dose: 5 mg Ascorbic Acid (Vitamin C Tab*) 1,000 mg PO DAILY [facility] Last Admin: 09/19/17 09:20 Dose: 1,000 mg Cyanocobalamin (Vitamin B12 Tab*) 1,000 mcg PO MoWeFr@0900 [facility] Last Admin: 09/19/17 09:30 Dose: 1,000 mcg Dexamethasone (Decadron Tab*) 6 mg PO Q8H [facility] Diphenoxylate HCl/Atropine (Lomotil Tab*) 1 tab PO QID PRN PRN Reason: DIARRHEA Enoxaparin Sodium (Lovenox(*)) 40 mg SUBCUT Q24H [facility] Last Admin: 09/18/17 23:44 Dose: 40 mg Fluconazole (Diflucan 100 Mg Tab*) 100 mg PO DAILY [facility] Last Admin: 09/19/17 09:20 Dose: 100 mg Guaifenesin (Robitussin*) 5 ml PO Q4H PRN PRN Reason: COUGH Last Admin: 09/18/17 03:25 Dose: 5 ml Sodium Chloride (Ns 0.9% 1000 Ml*) 1,000 mls @ 100 mls/hr IV PER RATE [facility] Last Admin: 09/19/17 00:03 Dose: 100 mls/hr Levofloxacin/Dextrose (Levaquin 750 Mg Ivpremix(*)) 750 mg in 150 mls @ 100 mls /hr IVPB Q24H [facility] Last Admin: 09/19/17 05:47 Dose: 100 mls/hr Lorazepam (Ativan Inj*) 0.5 mg IV PUSH Q8H [facility] Last Admin: 09/19/17 04:53 Dose: 0.5 mg Nystatin (Nystatin Suspension*) 500,000 units PO QID [facility] Stop: 09/22/17 21:24 Last Admin: 09/19/17 09:20 Dose: 500,000 units Omeprazole (Prilosec Cap*) 20 mg PO DAILY@0730 [facility] PRN Reason: Protocol Last Admin: 09/19/17 09:20 Dose: 20 mg Ondansetron HCl (Zofran Inj*) 4 mg IV Q4H PRN PRN Reason: NAUSEA/VOMITING Tramadol HCl (Ultram*) 50 mg PO Q12HR PRN PRN Reason: PAIN Objective: [] Vital Signs Temp Pulse Resp BP Pulse Ox 97.7 F 85 18 158/93 94 09/19/17 07:24 09/19/17 09:47 09/19/17 08:00 09/19/17 09:47 09/19/17 09:47 HEENT - Thrush improved. CTA BL, no wheezes or crackles Mild abd distension, good BS, NT/ND Ext no edema and good pulses Neuro - On my exam oriented to hospital, date and situation. She is no catatonic at this moment. She has slow response time and appears to be impaired relative to documented baseline. Assessment: 71 yo F w metastatic CRC, recently on oral targeted therapy via the MATCH trial at [facility] with recent [employer] progression and gamma-knife at [facility], now admitted with weakness, fever and AMS and found to have Legionella Pneumonia. Persistant acute mental status changes with periods of delirium as was as symptoms of catatonia. AMS is a combination of compromised protoplasm ( metastatic [employer] disease) with active lung infection and hyponatremia (ie-toxic metabolic encephalopathy), could be catatonia of malignancy, rather than [employer] infection or progression of disease, is less likely. Plan: 1. Nosocomial Legionella PNA. -Levaquin 750 mg IV daily, can go to PO on discharge -Case reported to [facility], sputum culture if possible. 2. AMS and motor symptoms. Mixed picture of delirium and catatonia. Appreciated input of neurology and will consult psychiatry as suggested. - Will continue Ativan despite confusion - Avoid Haldol and compazine - Treat infection and hyponatremia. - [facility] if evaluation at [facility] cannot explain symptoms. Will consider transfer on Wed if symptoms do not improve and studies non diagnostic. 3. Hyponatremia. Improved slightly on IVF, follow. 4.Thrush. Fluconazole 100 mg daily 5. Protein malnutrition. Will encourage po intake. 6. Weakness and will continue PT. 7. Lovenox dvt prophylaxis 8. Full code time with patient and chart: 10:30 - 11:25
[2017-09-19 12:24] LABS: Hematocrit 33 % (35-47); Hemoglobin 11.2 g/dl (12.0-16.0); Mean Corpuscular HGB Conc 34 g/dl (31-36); Mean Corpuscular Hemoglobin 34 pg (27-31); Mean Corpuscular Volume 101 fL (80-97); Mean Platelet Volume 8 um3 (7.4-10.4); Red Blood Count 3.32 10^6/ul (4.0-5.4); Red Cell Distribution Width 19 % (10.5-15); White Blood Count 10.2 10^3/ul (3.5-10.8)
[2017-09-19 12:29] LABS: Add Diff/Slide Review? Slide Review Added; Comments Flag Yes
[2017-09-19] MEDS ORDERED: LORazepam INJ* 2 MG/ML 1 ML VIAL ONE (12:32)
[2017-09-19 12:40] LABS: Albumin 2.2 g/dL (3.2-5.2); BUN/Creatinine Ratio 36.7 (8-20); Calcium 8.4 mg/dL (8.6-10.3); EGFR African American 160.1 (>60); EGFR Non-African American 124.5 (>60); Globulin 3.4 g/dL (2-4); Potassium 3.5 mmol/L (3.5-5.0); Total Bilirubin 0.4 mg/dL (0.2-1.0); Total Protein 5.6 g/dL (6.4-8.9)
[2017-09-19] MEDS ORDERED: LORazepam INJ* 2 MG/ML 1 ML VIAL IV PUSH ONE ×2 (12:50→14:00)
--- NOTE | 2017-09-19 12:50 | PN ---
Hospitalist Progress Note HOSPITALIST ADDENDUM CAT called - patient was lying in bed with her arms extended, mouth open and tongue sticking out for 30 minutes. Not following commands or answering questions. Family states patient was doing well earlier today, with fluent speech, improvement of her movements. Patient received 0.5mg of Ativan with improvement of her arms and mouth, able to move again. Ten minutes later she received 0.5mg more and she was able to speak. Dr. Palmer and Dr. Bello called and came to evaluate patient at bedside. Suspect these symptoms are related to her catatonia, especially considering her response to Ativan. At this time, patient's limbs are relaxed, mouth is closed, she's following commands, able to speak and answer questions. W/u will continue as per Dr. Palmer's recommendations.
[2017-09-19] MEDS ORDERED: Gadoteridol* (CONTRAST) 279.3 MG/ML 10 ML IV ONE (15:08)
--- NOTE | 2017-09-19 15:37 | RAD ---
HISTORY: History of left occipital metastasis, left temporal slowing on EEG, evaluate for new lesion COMPARISONS: September 01, 2017 TECHNIQUE: The following sequences were obtained of the head: Contrast FINDINGS: HEMORRHAGE/INFARCT: There is no hemorrhage or acute infarct. MASSES/SHIFT: Again noted is a left occipital enhancing lesion. There is no shift. EXTRA-AXIAL SPACES/MENINGES: There are no extra-axial fluid collections. SULCI AND VENTRICLES: The sulci and ventricles are normal in size and position for the patient's stated age. CEREBRUM: Again noted is a heterogeneously enhancing lesion of the left occipital lobe. This is stable in size and appearance compared to the September 01, 2017 examination. There is associated vasogenic edema, decreased from the previous examination. BRAINSTEM: There are no focal parenchymal abnormalities. CEREBELLUM: There are no focal parenchymal abnormalities. The cerebellar tonsils are normal in size and position. SELLA: The sella is normal. PINEAL: The pineal region is clear. CP ANGLE/TEMPORAL BONES: The labyrinthine structures are grossly normal. VESSELS: Normal flow-voids are noted within the visualized vertebral vasculature. DIFFUSION ABNORMALITIES: There are no diffusion abnormalities. PARANASAL SINUSES/MASTOIDS: The paranasal sinuses are clear. There is left mastoid effusion. ORBITS: The orbits are unremarkable. BONES AND SOFT TISSUE: No bone or soft tissue abnormalities are noted. OTHER: None IMPRESSION: 1. STABLE ENHANCING LESION OF THE LEFT OCCIPITAL LOBE, WITH DECREASED VASOGENIC EDEMA COMPARED TO SEPTEMBER 01, 2017. 2. LEFT MASTOID EFFUSION. 3. NO OTHER AREAS OF ABNORMAL ENHANCEMENT OR MASS.
[2017-09-19] MEDS: LORazepam INJ* 2 MG/ML 1 ML VIAL IV PUSH PRN (18:25)
--- NOTE | 2017-09-19 18:55 | CONS ---
CONSULTATION REPORT: DATE OF CONSULT: 09/19/17 ATTENDING PHYSICIAN: Dr. Jany Guevara. CONSULTING PHYSICIAN: Dr. Samir Colbert. REASON FOR CONSULT: Catatonia. SUBJECTIVE HISTORY: Psychiatry is asked to see this very pleasant, 71-year-old , white female with a past medical history of hypertension and metastatic colon cancer, due to several episodes of intermittent jerking, purposeless motor movements combined with confusion, blank stares, and inability to communicate. Speaking to the patient and her family, I gathered that these episodes first started late last weak, either or Tuesday, 12/31 or 09/16/17, and they have been progressively getting worse. In fact, today there was a very prolonged one which required a full milligram of lorazepam in order for the patient to snap out of it. My understanding is that the patient has had diagnosis of colon cancer since around June of 2015 and she now has metastases to the brain, which required recent Gamma Knife surgery 10 days prior to admission with a doctor at the [facility]. Her complained when he brought her in that she had had the catatonic episode in which among other things she became irrational and hostile, which family notes is quite unusual for her. Since these episodes have come to the recognition of the primary team, they have placed her on scheduled lorazepam at 0.5 mg every 8 hours. This dose had been working for her but increasingly is felt that this ineffective and there are concerns about having the patient with her presentation on chronic administration of benzodiazepines. Apparently, the episodes were evaluated by the neurologist, Dr. Arti Palmer, who felt that they were most characteristic of catatonia. As I meet with the patient, she is lying in bed in the presence of her [id number], whose name is Marlena. The patient is extremely polite and although she answers questions somewhat slowly, she is coherent and seems to be aware of these episodes, although she admits that she cannot exactly remember what occurs in her mind if they are happening. At any rate, she is appropriately distressed by them and is willing to take medications of a preventive nature. I screened her for other factors of mental health including depression, bao, PTSD, OCD, and psychosis, to which she has no pertinent positives. PAST PSYCHIATRIC HISTORY: The patient denies ever having received psychiatric treatment either in counseling, therapy, or through psychiatric medications. She tells me "I have always been the upbeat one." She has never been psychiatrically hospitalized and has no history of victimization of abuse, neglect, or head trauma. PAST SUBSTANCE ABUSE HISTORY: The patient endorses some social alcohol consumption but other than this denies abusive alcohol, use of illicit substances, or abusive tobacco products. PAST MEDICAL HISTORY: Significant for metastatic colon cancer with metastases to the brain. She has also had right hemicolectomy, cataract surgery, partial hysterectomy, Gamma Knife radiosurgery. She has been diagnosed with hypertension as well as cancer metastases to the right adrenal gland. FAMILY HISTORY: Largely noncontributory. SOCIAL HISTORY: The patient was born and raised in [facility]. This is her third marriage currently. She does have 4 children. 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 Currently, she lives with her in [place], [place]. MENTAL STATUS EXAM: The patient is an aging white female who appears to be fairly well-groomed. She is dressed in a patient gown, lying supine in her bed , but does prop herself up and makes fairly good eye contact as I enter. She is calm and cooperative, easy to establish a rapport with. Speech is soft with moderate latencies but she is articulate and fluent with rich vocabulary. Mood is euthymic with full affect. Thought process is linear and goal directed. Thought content is remarkable for her understandable concern over her medical issues. She is denying suicidal or homicidal ideations. She denies auditory or visual hallucinations. There is no evidence of psychotic thought process. Insight and judgment appear to be fair given her willingness to take medications to resolve these episodes. Cognitively, she is awake but somewhat sleepy and seems to be fairly well oriented. 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 Humble II: Deferred. ASSESSMENT: The patient is a 71-year-old white female with no prior psychiatric history, who is currently receiving treatment for metastatic colon cancer with metastases to the brain, who has recently undergone radiosurgery to metastatic lesion in her brain, who now presents with 4 to 5 days of episodic catatonic behaviors. These have been somewhat amenable to lorazepam therapy; however, they still seem to be worsening both in intensity and duration and the primary team is looking for some help with management particularly of a preventive or prophylactic nature. RECOMMENDATIONS TO PRIMARY TEAM: Psychiatry recommends initiation of quetiapine at the low dose of 25 mg twice daily. As she is up titrated on quetiapine, if this is effective, we can probably reduce or even eliminate the use of lorazepam which has several drawbacks in patients of this demographic. Psychiatry will continue to follow the patient. Thank you for the consult. [id number]/[facility] #: [id number] ROBBY
[2017-09-19] MEDS: Enoxaparin(*) 40 MG/0.4 ML SYR SUBCUT SCH (21:00)
[2017-09-19] MEDS: QUEtiapine TAB* 25 MG PO SCH (21:03)
--- NOTE | 2017-09-19 21:30 | EEG ---
ELECTROENCEPHALOGRAPHY: DATE OF STUDY: 09/18/17 - ROOM #416 LOCATION: The patient is an inpatient. CLINICAL PROBLEM: This is a 71-year-old woman with a history of metastatic colon cancer, who has left occipital brain metastasis, who was admitted to the hospital with legionella pneumonia and subsequently developed catatonia. She continues to have confusion though her movements have improved with treatment with lorazepam. EEG is requested to evaluate her epileptiform abnormalities. MEDICATIONS: 1. Lorazepam 0.5 mg q.8 hours, last administered at 1321. 2. Dexamethasone 6 mg. 3. Enoxaparin. 4. Omeprazole. 5. Amlodipine. 6. B12. 7. Fluconazole. 8. Acetaminophen. 9. Lomotil. 10. Guaifenesin. 11. Ondansetron. 12. Tramadol. REPORT: At the onset of recording, the patient was reclining in bed with her eyes closed and there was intermittent but persistent 5 Hz rhythmic slowing noted in the bilateral frontal regions. This may have been related to eye flutter but it was difficult to correlate this on the video. Otherwise, the waking background showed appropriate organization with clearly defined anterior to posterior voltage frequency gradients. There was a well-defined posterior dominant rhythm of 8 Hz, which was symmetrical. Anteriorly, there is an expected pattern of lower voltage, irregular, mixed faster frequencies. There was excessive beta activity present diffusely consistent with medication effect. The patient became drowsy and brief epochs of sleep background were observed. Her sleep background was appropriately organized with well-developed sleep spindles and vertex waves. The sleep transients showed appropriate morphology and were bilaterally synchronous and symmetrical. During sleep, there were several instances of sharply contoured sharp waveforms noted in the left temporal region and on one occasion in the right temporal region. These had a more of a frontotemporal location and low-voltage spike waveforms. On the left , these involved electrodes F7 as well as T3 and F3 while on the right F8, T4, and F4 were involved. These waveforms were not definitively epileptiform in nature. Throughout the recording, there were no definitive epileptiform discharges nor seizures noted. CLINICAL IMPRESSION: This is an abnormal waking and sleep EEG due to the presence of a slow posterior dominant rhythm as well as bifrontal rhythmic theta slowing at the beginning of the recording and left greater than right low- voltage sharp features in the temporal regions bilaterally. These findings are suggestive of a mild, nonspecific, diffuse encephalopathy. The slowing noted frontally may have been artifact secondary to eye flutter, but this was difficult to discern on the video. The sharp features noted in the temporal regions may indicate focal dysfunction in these regions. There are no definitive epileptiform abnormalities or seizures. [id number]/[facility] #: [id number] [facility]
--- NOTE | 2017-09-19 21:39 | PN ---
PROGRESS NOTE: DATE OF FOLLOWUP: 09/19/17 OVERNIGHT EVENTS: No acute overnight events. The patient was behaving normally this morning, though still not at her cognitive baseline with some confusion according to her . This afternoon around noon she again began to exhibit abnormal movements and a CAT response was called. She apparently was holding a posture with her arms extended out to the sides with her eyes closed, her mouth wide open, and her tongue hanging out for approximately 30 minutes. She was not responsive to family or to nursing during this time. Dr. Guevara responded to the CAT call and gave a half a milligram of Ativan approximately 10 minutes prior to my arrival. She had last received lorazepam just before 5 a.m. prior to this episode. On my arrival, she continued to have some posturing but was starting to be able to respond and follow commands. I asked for the additional 0.5 mg to be given and within a couple of minutes, she was much improved. MEDICATIONS: Reviewed and include: 1. Amlodipine 5 mg daily. 2. Vitamin B12. 3. Decadron 6 mg q.8 hours. 4. Lomotil as needed, which she has not received. 5. Lovenox. 6. Diflucan. 7. Levaquin. 8. Lorazepam as mentioned above. 9. Tramadol p.r.n., which she has not received. PHYSICAL EXAMINATION: Vital Signs: Temperature 97.7, blood pressure measured at 9:47 was 158/93 with heart rate of 85 and oxygen saturation of 94% on room air. Her vitals were reportedly stable during this episode. On my evaluation, the patient was initially sitting motionless in her bed with her eyes closed and her mouth closed with her arms extended down and out of her sides. Her hands were fisted. I approached her and called her name and she opened her eyes, directing her gaze towards me. She was able to squeeze my hands on command bilaterally and released when prompted to do so. However, it was noted that her arms would return out to her sides and her hands become fisted again. She was able to protrude her tongue and open and close her eyes on command. Once the second dose of lorazepam 0.5 mg was administered, her limbs were much more supple and she appeared tired and again did drift off to sleep. LABORATORY DATA: EEG was performed yesterday and showed a slow posterior dominant rhythm as well as some bifrontal slowing, which may have been related to eye flutter artifact. During sleep, there were occasional instances of sharp waves noted in the temporal regions, left greater than right independently , which were not definitively epileptiform in nature. CBC shows that her white count has normalized at 10.2; hematocrit 33, improved from 30 and platelets of 164, improved from 142 and now normal. Her CMP shows her sodium is slightly lower at 128 today from 132, chloride of 99. Her GFR is normal. IMPRESSION: A 71-year-old woman with metastatic colon cancer, admitted with legionella pneumonia and subsequently developing catatonia. She may need escalating doses of the lorazepam at this point and I have increased her dose to 1 mg 3 times daily after discussion with Dr. Bello and the family. We will also add a 0.5 mg p.r.n. dose if she begins to show symptoms again of abnormal movements in between her scheduled doses. Dr. Bello has contacted Psychiatry earlier today to come and assist with management of catatonia and he will be calling them again. Her EEG did not show any definitive epileptiform abnormalities, but there were some suggestions of focal features, hence I would like to repeat her MRI of the brain with and without contrast. [id number] #: [id number] [facility]
[2017-09-20] MEDS: Dexamethasone TAB* 6 MG PO SCH ×3 (03:26→20:45)
[2017-09-20] MEDS: LORazepam INJ* 2 MG/ML 1 ML VIAL IV PUSH SCH ×3 (04:53→20:44)
[2017-09-20 04:59] LABS: Hematocrit 33 % (35-47); Hemoglobin 11.1 g/dl (12.0-16.0); Mean Corpuscular HGB Conc 33 g/dl (31-36); Mean Corpuscular Hemoglobin 33 pg (27-31); Mean Corpuscular Volume 100 fL (80-97); Mean Platelet Volume 8 um3 (7.4-10.4); Red Blood Count 3.31 10^6/ul (4.0-5.4); Red Cell Distribution Width 19 % (10.5-15); White Blood Count 9.1 10^3/ul (3.5-10.8)
[2017-09-20 05:00] LABS: Add Diff/Slide Review? Slide Review Added; Comments Flag Yes
[2017-09-20 05:12] LABS: Albumin 2.1 g/dL (3.2-5.2); BUN/Creatinine Ratio 32.7 (8-20); Calcium 8.4 mg/dL (8.6-10.3); EGFR African American 160.1 (>60); EGFR Non-African American 124.5 (>60); Globulin 3.3 g/dL (2-4); Potassium 3.7 mmol/L (3.5-5.0); Total Bilirubin 0.4 mg/dL (0.2-1.0); Total Protein 5.4 g/dL (6.4-8.9)
[2017-09-20] MEDS: Levofloxacin 750 MG IVPREMIX(* 750 MG/150 ML BAG IVPB SCH (06:09)
[2017-09-20] MEDS: Ascorbic Acid TAB* 500 MG PO SCH (09:36)
[2017-09-20] MEDS: Nystatin SUSPENSION* 100000 UNITS/ML 5 ML UDC PO SCH ×4 (09:36→20:45)
[2017-09-20] MEDS: Fluconazole 100 MG TAB* TAB PO SCH (09:36)
[2017-09-20] MEDS: amLODIPine TAB* 5 MG PO SCH (09:36)
[2017-09-20] MEDS: Omeprazole CAP* 20 MG PO SCH (09:36)
[2017-09-20] MEDS: QUEtiapine TAB* 25 MG PO SCH ×2 (09:49→20:45)
[2017-09-20] MEDS: NS 0.9% 1000 ML* 1,000 ML IV SCH ×2 (12:17→22:25)
[2017-09-20] MEDS ORDERED: LORazepam INJ* 2 MG/ML 1 ML VIAL IV PUSH SCH (14:30)
--- NOTE | 2017-09-20 16:39 | CONSULT ---
Identification - Patient Identification Reason for Psychiatric Consultation: Incapacitating Symptoms -: Patient is a 71 year old, F admitted on 09/15/17. - MHU Identification Employment Status: Disabled Hx Psychiatric Hospitalization: No History - Objective HPI: Heather is seen for follow up treatment of catatonia this afternoon in the presence of her and daughter in law. She is quite somnolent today and family inquires about the necessity of further lorazepam therapy, given the fact that she has not had any further catatonic episodes since last night, prior to the initiation of quetiapine. The patient is in fairly good spirits and notes that she is tolerating her medicines well, with the exception of sedation. Lab Results: Laboratory Tests 09/15/17 09/16/17 09/16/17 22:19 02:49 06:10 WBC 15.8 H RBC 3.10 L Hgb 10.6 L Hct 31 L MCV 101 H MCH 34 H MCHC 34 RDW 18 H Plt Count 125 L MPV 9 Neut % (Auto) 98.1 H Lymph % (Auto) 0.5 L Polk % (Auto) 0.7 L Eos % (Auto) 0 Baso % (Auto) 0.7 Absolute Neuts (auto) 15.5 H Absolute Lymphs (auto) 0.1 L Absolute Monos (auto) 0.1 Absolute Eos (auto) 0 Absolute Basos (auto) 0.1 Absolute Nucleated RBC 0.01 Nucleated RBC % 0 Sodium Potassium Chloride Carbon Dioxide Anion Gap BUN Creatinine Est GFR ( Amer) Est GFR (Non-Af Amer) BUN/Creatinine Ratio Glucose Lactic Acid 1.4 Calcium Magnesium Total Bilirubin AST ALT Alkaline Phosphatase Troponin I 0.04 H* Total Protein Albumin Globulin Albumin/Globulin Ratio Urine Color Urine Appearance Urine pH Ur Specific [place] Urine Protein Urine Ketones Urine Blood Urine Nitrate Urine Bilirubin Urine Urobilinogen Ur Leukocyte Esterase Urine WBC (Auto) Urine RBC (Auto) Ur Squamous Epith Cells Urine Bacteria Urine Glucose 09/16/17 09/17/17 09/17/17 06:10 00:02 06:25 WBC 14.5 H RBC 3.00 L Hgb 10.1 L Hct 30 L MCV 102 H MCH 34 H MCHC 33 RDW 19 H Plt Count 125 L MPV 9 Neut % (Auto) 98.4 H Lymph % (Auto) 0.9 L Polk % (Auto) 0.5 L Eos % (Auto) 0 Baso % (Auto) 0.2 Absolute Neuts (auto) 14.3 H Absolute Lymphs (auto) 0.1 L Absolute Monos (auto) 0.1 Absolute Eos (auto) 0 Absolute Basos (auto) 0 Absolute Nucleated RBC 0 Nucleated RBC % 0 Sodium 128 L Potassium 4.1 Chloride 97 L Carbon Dioxide 26 Anion Gap 5 BUN 11 Creatinine 0.56 Est GFR ( Amer) 137.2 Est GFR (Non-Af Amer) 106.7 BUN/Creatinine Ratio 19.6 Glucose 109 H Lactic Acid Calcium 8.8 Magnesium Total Bilirubin 0.60 AST 41 H ALT 53 H Alkaline Phosphatase 97 Troponin I Total Protein 5.5 L Albumin 2.5 L Globulin 3.0 Albumin/Globulin Ratio 0.8 L Urine Color Yellow Urine Appearance Clear Urine pH 6.0 Ur Specific [place] 1.009 L Urine Protein 1+(30 mg/dl) H Urine Ketones Negative Urine Blood Negative Urine Nitrate Negative Urine Bilirubin Negative Urine Urobilinogen Negative Ur Leukocyte Esterase Negative Urine WBC (Auto) Trace(0-5/hpf) Urine RBC (Auto) Absent Ur Squamous Epith Cells Present H Urine Bacteria 1+ H Urine Glucose 2+(150 mg/dl) H 09/17/17 09/18/17 09/18/17 06:25 05:22 05:22 WBC 14.9 H RBC 3.01 L Hgb 10.2 L Hct 30 L MCV 100 H MCH 34 H MCHC 34 RDW 18 H Plt Count 142 L MPV 9 Neut % (Auto) 98.4 H Lymph % (Auto) 1.1 L [place] % (Auto) 0.4 L Eos % (Auto) 0 Baso % (Auto) 0.1 Absolute Neuts (auto) 14.7 H Absolute Lymphs (auto) 0.2 L Absolute Monos (auto) 0.1 Absolute Eos (auto) 0 Absolute Basos (auto) 0 Absolute Nucleated RBC 0 Nucleated RBC % 0 Sodium 132 L 132 L Potassium 3.6 3.7 Chloride 102 102 Carbon Dioxide 24 24 Anion Gap 6 6 BUN 15 17 Creatinine 0.47 L 0.45 L Est GFR ( Amer) 168.0 176.6 Est GFR (Non-Af Amer) 130.6 137.4 BUN/Creatinine Ratio 31.9 H 37.8 H Glucose 115 H 105 H Lactic Acid Calcium 8.7 8.6 Magnesium 1.8 L 1.7 L Total Bilirubin 0.40 AST 33 ALT 45 Alkaline Phosphatase 87 Troponin I Total Protein 5.4 L Albumin 2.2 L Globulin 3.2 Albumin/Globulin Ratio 0.7 L Urine Color Urine Appearance Urine pH Ur Specific [place] Urine Protein Urine Ketones Urine Blood Urine Nitrate Urine Bilirubin Urine Urobilinogen Ur Leukocyte Esterase Urine WBC (Auto) Urine RBC (Auto) Ur Squamous Epith Cells Urine Bacteria Urine Glucose 09/19/17 09/19/17 09/20/17 11:45 11:45 04:45 WBC 10.2 9.1 RBC 3.32 L 3.31 L Hgb 11.2 L 11.1 L Hct 33 L 33 L MCV 101 H 100 H MCH 34 H 33 H MCHC 34 33 RDW 19 H 19 H Plt Count 164 174 MPV 8 8 Neut % (Auto) 97.7 H 97.5 H Lymph % (Auto) 1.2 L 1.6 L Polk % (Auto) 0.7 L 0.7 L Eos % (Auto) 0 0 Baso % (Auto) 0.4 0.2 Absolute Neuts (auto) 10.0 H 8.9 H Absolute Lymphs (auto) 0.1 L 0.1 L Absolute Monos (auto) 0.1 0.1 Absolute Eos (auto) 0 0 Absolute Basos (auto) 0 0 Absolute Nucleated RBC 0.01 0.01 Nucleated RBC % 0 0.2 Sodium 128 L Potassium 3.5 Chloride 99 L Carbon Dioxide 22 Anion Gap 7 BUN 18 Creatinine 0.49 L Est GFR ( Amer) 160.1 Est GFR (Non-Af Amer) 124.5 BUN/Creatinine Ratio 36.7 H Glucose 216 H Lactic Acid Calcium 8.4 L Magnesium Total Bilirubin 0.40 AST 25 ALT 44 Alkaline Phosphatase 87 Troponin I Total Protein 5.6 L Albumin 2.2 L Globulin 3.4 Albumin/Globulin Ratio 0.6 L Urine Color Urine Appearance Urine pH Ur Specific [place] Urine Protein Urine Ketones Urine Blood Urine Nitrate Urine Bilirubin Urine Urobilinogen Ur Leukocyte Esterase Urine WBC (Auto) Urine RBC (Auto) Ur Squamous Epith Cells Urine Bacteria Urine Glucose 09/20/17 04:45 WBC RBC Hgb Hct MCV MCH MCHC RDW Plt Count MPV Neut % (Auto) Lymph % (Auto) Polk % (Auto) Eos % (Auto) Baso % (Auto) Absolute Neuts (auto) Absolute Lymphs (auto) Absolute Monos (auto) Absolute Eos (auto) Absolute Basos (auto) Absolute Nucleated RBC Nucleated RBC % Sodium 131 L Potassium 3.7 Chloride 101 Carbon Dioxide 23 Anion Gap 7 BUN 16 Creatinine 0.49 L Est GFR ( Amer) 160.1 Est GFR (Non-Af Amer) 124.5 BUN/Creatinine Ratio 32.7 H Glucose 128 H Lactic Acid Calcium 8.4 L Magnesium Total Bilirubin 0.40 AST 18 ALT 41 Alkaline Phosphatase 94 Troponin I Total Protein 5.4 L Albumin 2.1 L Globulin 3.3 Albumin/Globulin Ratio 0.6 L Urine Color Urine Appearance Urine pH Ur Specific [place] Urine Protein Urine Ketones Urine Blood Urine Nitrate Urine Bilirubin Urine Urobilinogen Ur Leukocyte Esterase Urine WBC (Auto) Urine RBC (Auto) Ur Squamous Epith Cells Urine Bacteria Urine Glucose Exam Appearance: Well Developed/Nourished Hygiene: Normal Grooming: Well Kept Psychomotor Activities: Abnormal-Decreased Exhibits Abnormal Movement: No Attitude and Relatedness: Cooperative Eye Contact: Good - Speech Quality: Unpressured Latencies: Normal Quantity: Terse Patient's Decription of Mood: "Fine" Observed Affect: Fair Affect Consistent with: Euthymia Patient's Thought Process: Coherent Thought Content: No Passive Wish, No Suicidal Planning, No Homicidal Ideation, No Paranoid Ideation Experiencing Hallucinations: No, Sensorium is Clear Type of Hallucinations: Visual: No, Auditory: No, Command: No Level of Consciousness: Lethargic Orientation: Yes Intact, Yes Orientated to Time, Yes Orientated to Place, Yes Orientated to Person Impulse Control: Intact Insight and Judgement: Good Impression - Impression Clinical Impression: 71 y.o. , white female with a history of colon cancer with brain metastases, currently admitted to the hospitalist service, presents with catatonic episodes for the past 5-6 days. Merits Inpatient Hospitalization: No Plan - Treatment Plan Treatment Plan: The patient has been started on quetiapine 25mg PO BID. We will decrease scheduled lorazepam to 0.5mg IV q8h in the interest of ultimately discontinuing this. Her last episode was early evening on Tuesday, September 19. Psychiatry will continue to follow. Continued Medication Management: Start Medication Medications: Current Medications Acetaminophen (Tylenol Tab*) 650 mg PO Q4H PRN PRN Reason: FEVER/PAIN Amlodipine Besylate (Norvasc Tab*) 5 mg PO DAILY [facility] Last Admin: 09/20/17 09:36 Dose: 5 mg Ascorbic Acid (Vitamin C Tab*) 1,000 mg PO DAILY [facility] Last Admin: 09/20/17 09:36 Dose: 1,000 mg Cyanocobalamin (Vitamin B12 Tab*) 1,000 mcg PO MoWeFr@0900 [facility] Last Admin: 09/19/17 09:30 Dose: 1,000 mcg Dexamethasone (Decadron Tab*) 6 mg PO Q12H [facility] Diphenoxylate HCl/Atropine (Lomotil Tab*) 1 tab PO QID PRN PRN Reason: DIARRHEA Enoxaparin Sodium (Lovenox(*)) 40 mg SUBCUT Q24H [facility] Last Admin: 09/19/17 21:00 Dose: 40 mg Fluconazole (Diflucan 100 Mg Tab*) 100 mg PO DAILY [facility] Last Admin: 09/20/17 09:36 Dose: 100 mg Guaifenesin (Robitussin*) 5 ml PO Q4H PRN PRN Reason: COUGH Last Admin: 09/18/17 03:25 Dose: 5 ml Sodium Chloride (Ns 0.9% 1000 Ml*) 1,000 mls @ 100 mls/hr IV PER RATE [facility] Last Admin: 09/20/17 12:17 Dose: 100 mls/hr Levofloxacin/Dextrose (Levaquin 750 Mg Ivpremix(*)) 750 mg in 150 mls @ 100 mls /hr IVPB Q24H [facility] Last Admin: 09/20/17 06:09 Dose: 100 mls/hr Lorazepam (Ativan Inj*) 0.5 mg IV PUSH Q4H PRN PRN Reason: catatonia Last Admin: 09/19/17 18:25 Dose: 0.5 mg Lorazepam (Ativan Inj*) 0.5 mg IV PUSH 0430,1230,2030 [facility] Nystatin (Nystatin Suspension*) 500,000 units PO QID [facility] Stop: 09/22/17 21:24 Last Admin: 09/20/17 12:30 Dose: Not Given Omeprazole (Prilosec Cap*) 20 mg PO DAILY@0730 [facility] PRN Reason: Protocol Last Admin: 09/20/17 09:36 Dose: 20 mg Ondansetron HCl (Zofran Inj*) 4 mg IV Q4H PRN PRN Reason: NAUSEA/VOMITING Quetiapine Fumarate (Seroquel Tab*) 25 mg PO BID [facility] Last Admin: 09/20/17 09:49 Dose: 25 mg Tramadol HCl (Ultram*) 50 mg PO Q12HR PRN PRN Reason: PAIN
[2017-09-20] MEDS: Enoxaparin(*) 40 MG/0.4 ML SYR SUBCUT SCH (22:22)
--- NOTE | 2017-09-20 22:46 | PN ---
NEUROLOGY PROGRESS NOTE: DATE OF FOLLOWUP: 09/20/17 OVERNIGHT EVENTS: According to the patient's [id number] who is at the bedside, the patient experienced another event of catatonic behaviors around 6 p.m. last night. Her [id number] notified nursing early into the episode. She was administered 0.5 mg of Ativan and the episode resolved. Psychiatry has suggested starting quetiapine 25 mg twice daily, which she received for the first time last evening at 9 p.m. In addition, she received a milligram of Ativan at 2054, 4:53, and 1227 today. She also received her quetiapine 25 mg at 9:50 a.m. She is quite sleepy today but her family said she has not experienced any recurrent catatonic behaviors. She has been eating well today despite her sleepiness. MEDICATIONS: Reviewed as per the HPI. PHYSICAL EXAM: Vital Signs: Temperature 97.6, blood pressure 142/82, heart rate 71, oxygen saturation 94% on room air. On general examination, the patient appears very sleepy, lying in bed comfortably with her eyes half open most of the time. She will respond to questions and follow commands. She is fully oriented. Pupils are equal, round, and reactive from 3 to 2 mm bilaterally. Her versions are full without nystagmus. Her face is symmetric. Her tone is normal. Strength is full in the upper and lower extremities. Reflexes are 2+ throughout. [id number] is intact without ataxia. Finger taps are slowed and she initially had trouble mimicking the movements of the examiner when asked to tap her finger and thumb together. DIAGNOSTIC STUDIES/LAB DATA: A repeat MRI of the brain with and without contrast done yesterday shows no evidence of new enhancing lesions. The area of vasogenic edema secondary to the left occipital metastatic lesion is improved compared to the mid August study. Laboratory data was reviewed including a CMP and CBC and overall is unchanged and unremarkable. IMPRESSION: A 71-year-old female with metastatic colon cancer with a left occipital brain lesion, who is experiencing catatonic behaviors. Psychiatry's input is appreciated. Under Dr. Colbert's direction, the patient has been started on Seroquel and I believe his plan may be to now wean the lorazepam. She is clearly sedated on the combination of the 2 medications and I spoke with the family regarding this. Her was concerned that her movements are still slowed and her fine motor control is not normal and I think this is probably a combination both of the condition we are treating as well as the treatment itself. I will continue to follow along as the patient is hospitalized. [id number] #: [id number] [facility]
[2017-09-21] MEDS: LORazepam INJ* 2 MG/ML 1 ML VIAL IV PUSH SCH ×3 (04:51→20:50)
[2017-09-21] MEDS: Levofloxacin 750 MG IVPREMIX(* 750 MG/150 ML BAG IVPB SCH (06:47)
[2017-09-21] MEDS: LORazepam INJ* 2 MG/ML 1 ML VIAL IV PUSH PRN (08:35)
[2017-09-21] MEDS: QUEtiapine TAB* 25 MG PO SCH ×2 (08:44→20:44)
[2017-09-21] MEDS: Omeprazole CAP* 20 MG PO SCH (08:44)
[2017-09-21] MEDS: Ascorbic Acid TAB* 500 MG PO SCH (08:45)
[2017-09-21] MEDS: amLODIPine TAB* 5 MG PO SCH ×2 (08:45→12:41)
[2017-09-21] MEDS: Cyanocobalamin TAB* 500 MCG PO SCH (08:45)
[2017-09-21] MEDS: Nystatin SUSPENSION* 100000 UNITS/ML 5 ML UDC PO SCH ×4 (08:45→20:44)
[2017-09-21] MEDS: Fluconazole 100 MG TAB* TAB PO SCH (08:46)
[2017-09-21] MEDS: Dexamethasone TAB* 6 MG PO SCH ×2 (09:06→21:01)
[2017-09-21] MEDS ORDERED: amLODIPine TAB* 5 MG PO SCH (11:55)
--- NOTE | 2017-09-21 12:42 | CONSULT ---
Identification - Patient Identification Reason for Psychiatric Consultation: Incapacitating Symptoms -: Patient is a 71 year old, F admitted on 09/15/17. - MHU Identification Employment Status: Disabled Hx Psychiatric Hospitalization: No History - Objective HPI: Heather had another episode this morning, witnessed by her as well as staff, in which she stiffened, started staring blankly with her tongue protruding, and became unresponsive. PRN lorazepam was effective in truncating the episode and she has been mentating at baseline since. The patient is less sedate than yesterday and feels like she's tolerating the quetiapine well. Her mood is euthymic. Lab Results: Laboratory Tests 09/15/17 09/16/17 09/16/17 22:19 02:49 06:10 WBC 15.8 H RBC 3.10 L Hgb 10.6 L Hct 31 L MCV 101 H MCH 34 H MCHC 34 RDW 18 H Plt Count 125 L MPV 9 Neut % (Auto) 98.1 H Lymph % (Auto) 0.5 L [place] % (Auto) 0.7 L Eos % (Auto) 0 Baso % (Auto) 0.7 Absolute Neuts (auto) 15.5 H Absolute Lymphs (auto) 0.1 L Absolute Monos (auto) 0.1 Absolute Eos (auto) 0 Absolute Basos (auto) 0.1 Absolute Nucleated RBC 0.01 Nucleated RBC % 0 Sodium Potassium Chloride Carbon Dioxide Anion Gap BUN Creatinine Est GFR ( Amer) Est GFR (Non-Af Amer) BUN/Creatinine Ratio Glucose Lactic Acid 1.4 Calcium Magnesium Total Bilirubin AST ALT Alkaline Phosphatase Troponin I 0.04 H* Total Protein Albumin Globulin Albumin/Globulin Ratio Urine Color Urine Appearance Urine pH Ur Specific Odem Urine Protein Urine Ketones Urine Blood Urine Nitrate Urine Bilirubin Urine Urobilinogen Ur Leukocyte Esterase Urine WBC (Auto) Urine RBC (Auto) Ur Squamous Epith Cells Urine Bacteria Urine Glucose 09/16/17 09/17/17 09/17/17 06:10 00:02 06:25 WBC 14.5 H RBC 3.00 L Hgb 10.1 L Hct 30 L MCV 102 H MCH 34 H MCHC 33 RDW 19 H Plt Count 125 L MPV 9 Neut % (Auto) 98.4 H Lymph % (Auto) 0.9 L [place] % (Auto) 0.5 L Eos % (Auto) 0 Baso % (Auto) 0.2 Absolute Neuts (auto) 14.3 H Absolute Lymphs (auto) 0.1 L Absolute Monos (auto) 0.1 Absolute Eos (auto) 0 Absolute Basos (auto) 0 Absolute Nucleated RBC 0 Nucleated RBC % 0 Sodium 128 L Potassium 4.1 Chloride 97 L Carbon Dioxide 26 Anion Gap 5 BUN 11 Creatinine 0.56 Est GFR ( Amer) 137.2 Est GFR (Non-Af Amer) 106.7 BUN/Creatinine Ratio 19.6 Glucose 109 H Lactic Acid Calcium 8.8 Magnesium Total Bilirubin 0.60 AST 41 H ALT 53 H Alkaline Phosphatase 97 Troponin I Total Protein 5.5 L Albumin 2.5 L Globulin 3.0 Albumin/Globulin Ratio 0.8 L Urine Color Yellow Urine Appearance Clear Urine pH 6.0 Ur Specific Odem 1.009 L Urine Protein 1+(30 mg/dl) H Urine Ketones Negative Urine Blood Negative Urine Nitrate Negative Urine Bilirubin Negative Urine Urobilinogen Negative Ur Leukocyte Esterase Negative Urine WBC (Auto) Trace(0-5/hpf) Urine RBC (Auto) Absent Ur Squamous Epith Cells Present H Urine Bacteria 1+ H Urine Glucose 2+(150 mg/dl) H 09/17/17 09/18/17 09/18/17 06:25 05:22 05:22 WBC 14.9 H RBC 3.01 L Hgb 10.2 L Hct 30 L MCV 100 H MCH 34 H MCHC 34 RDW 18 H Plt Count 142 L MPV 9 Neut % (Auto) 98.4 H Lymph % (Auto) 1.1 L [place] % (Auto) 0.4 L Eos % (Auto) 0 Baso % (Auto) 0.1 Absolute Neuts (auto) 14.7 H Absolute Lymphs (auto) 0.2 L Absolute Monos (auto) 0.1 Absolute Eos (auto) 0 Absolute Basos (auto) 0 Absolute Nucleated RBC 0 Nucleated RBC % 0 Sodium 132 L 132 L Potassium 3.6 3.7 Chloride 102 102 Carbon Dioxide 24 24 Anion Gap 6 6 BUN 15 17 Creatinine 0.47 L 0.45 L Est GFR ( Amer) 168.0 176.6 Est GFR (Non-Af Amer) 130.6 137.4 BUN/Creatinine Ratio 31.9 H 37.8 H Glucose 115 H 105 H Lactic Acid Calcium 8.7 8.6 Magnesium 1.8 L 1.7 L Total Bilirubin 0.40 AST 33 ALT 45 Alkaline Phosphatase 87 Troponin I Total Protein 5.4 L Albumin 2.2 L Globulin 3.2 Albumin/Globulin Ratio 0.7 L Urine Color Urine Appearance Urine pH Ur Specific Odem Urine Protein Urine Ketones Urine Blood Urine Nitrate Urine Bilirubin Urine Urobilinogen Ur Leukocyte Esterase Urine WBC (Auto) Urine RBC (Auto) Ur Squamous Epith Cells Urine Bacteria Urine Glucose 09/19/17 09/19/17 09/20/17 11:45 11:45 04:45 WBC 10.2 9.1 RBC 3.32 L 3.31 L Hgb 11.2 L 11.1 L Hct 33 L 33 L MCV 101 H 100 H MCH 34 H 33 H MCHC 34 33 RDW 19 H 19 H Plt Count 164 174 MPV 8 8 Neut % (Auto) 97.7 H 97.5 H Lymph % (Auto) 1.2 L 1.6 L [place] % (Auto) 0.7 L 0.7 L Eos % (Auto) 0 0 Baso % (Auto) 0.4 0.2 Absolute Neuts (auto) 10.0 H 8.9 H Absolute Lymphs (auto) 0.1 L 0.1 L Absolute Monos (auto) 0.1 0.1 Absolute Eos (auto) 0 0 Absolute Basos (auto) 0 0 Absolute Nucleated RBC 0.01 0.01 Nucleated RBC % 0 0.2 Sodium 128 L Potassium 3.5 Chloride 99 L Carbon Dioxide 22 Anion Gap 7 BUN 18 Creatinine 0.49 L Est GFR ( Amer) 160.1 Est GFR (Non-Af Amer) 124.5 BUN/Creatinine Ratio 36.7 H Glucose 216 H Lactic Acid Calcium 8.4 L Magnesium Total Bilirubin 0.40 AST 25 ALT 44 Alkaline Phosphatase 87 Troponin I Total Protein 5.6 L Albumin 2.2 L Globulin 3.4 Albumin/Globulin Ratio 0.6 L Urine Color Urine Appearance Urine pH Ur Specific Odem Urine Protein Urine Ketones Urine Blood Urine Nitrate Urine Bilirubin Urine Urobilinogen Ur Leukocyte Esterase Urine WBC (Auto) Urine RBC (Auto) Ur Squamous Epith Cells Urine Bacteria Urine Glucose 09/20/17 04:45 WBC RBC Hgb Hct MCV MCH MCHC RDW Plt Count MPV Neut % (Auto) Lymph % (Auto) [place] % (Auto) Eos % (Auto) Baso % (Auto) Absolute Neuts (auto) Absolute Lymphs (auto) Absolute Monos (auto) Absolute Eos (auto) Absolute Basos (auto) Absolute Nucleated RBC Nucleated RBC % Sodium 131 L Potassium 3.7 Chloride 101 Carbon Dioxide 23 Anion Gap 7 BUN 16 Creatinine 0.49 L Est GFR ( Amer) 160.1 Est GFR (Non-Af Amer) 124.5 BUN/Creatinine Ratio 32.7 H Glucose 128 H Lactic Acid Calcium 8.4 L Magnesium Total Bilirubin 0.40 AST 18 ALT 41 Alkaline Phosphatase 94 Troponin I Total Protein 5.4 L Albumin 2.1 L Globulin 3.3 Albumin/Globulin Ratio 0.6 L Urine Color Urine Appearance Urine pH Ur Specific Odem Urine Protein Urine Ketones Urine Blood Urine Nitrate Urine Bilirubin Urine Urobilinogen Ur Leukocyte Esterase Urine WBC (Auto) Urine RBC (Auto) Ur Squamous Epith Cells Urine Bacteria Urine Glucose Exam Appearance: Well Developed/Nourished Hygiene: Normal Grooming: Well Kept Psychomotor Activities: Abnormal-Decreased Exhibits Abnormal Movement: No Attitude and Relatedness: Cooperative Eye Contact: Good - Speech Quality: Unpressured Latencies: Normal Quantity: Terse Patient's Decription of Mood: "Fine" Observed Affect: Fair Affect Consistent with: Euthymia Patient's Thought Process: Coherent Thought Content: No Passive Wish, No Suicidal Planning, No Homicidal Ideation, No Paranoid Ideation Experiencing Hallucinations: No, Sensorium is Clear Type of Hallucinations: Visual: No, Auditory: No, Command: No Level of Consciousness: Lethargic Orientation: Yes Intact, Yes Orientated to Time, Yes Orientated to Place, Yes Orientated to Person Impulse Control: Intact Insight and Judgement: Good Impression - Impression Clinical Impression: 71 y.o. , white female with a history of colon cancer with brain metastases, currently admitted to the hospitalist service, presents with catatonic episodes for the past 5-6 days. Merits Inpatient Hospitalization: No Plan - Treatment Plan Treatment Plan: The patient has been started on quetiapine 25mg PO BID. We will increase this to 50mg PO BID and maintain her on scheduled 0.5mg lorazepam TID until the quetiapine takes effect. Psychiatry will continue to follow. Continued Medication Management: Start Medication Medications: Current Medications Acetaminophen (Tylenol Tab*) 650 mg PO Q4H PRN PRN Reason: FEVER/PAIN Amlodipine Besylate (Norvasc Tab*) 10 mg PO DAILY [facility] Ascorbic Acid (Vitamin C Tab*) 1,000 mg PO DAILY [facility] Last Admin: 09/21/17 08:45 Dose: 1,000 mg Cyanocobalamin (Vitamin B12 Tab*) 1,000 mcg PO MoWeFr@0900 [facility] Last Admin: 09/21/17 08:45 Dose: 1,000 mcg Dexamethasone (Decadron Tab*) 6 mg PO Q12H [facility] Last Admin: 09/21/17 09:06 Dose: 6 mg Diphenoxylate HCl/Atropine (Lomotil Tab*) 1 tab PO QID PRN PRN Reason: DIARRHEA Enoxaparin Sodium (Lovenox(*)) 40 mg SUBCUT Q24H [facility] Last Admin: 09/20/17 22:22 Dose: 40 mg Fluconazole (Diflucan 100 Mg Tab*) 100 mg PO DAILY [facility] Last Admin: 09/21/17 08:46 Dose: 100 mg Guaifenesin (Robitussin*) 5 ml PO Q4H PRN PRN Reason: COUGH Last Admin: 09/18/17 03:25 Dose: 5 ml Lorazepam (Ativan Inj*) 0.5 mg IV PUSH Q4H PRN PRN Reason: catatonia Last Admin: 09/21/17 08:35 Dose: 0.5 mg Lorazepam (Ativan Inj*) 0.5 mg IV PUSH 0430,1230,2030 [facility] Last Admin: 09/21/17 04:51 Dose: 0.5 mg Nystatin (Nystatin Suspension*) 500,000 units PO QID [facility] Stop: 09/22/17 21:24 Last Admin: 09/21/17 08:45 Dose: 500,000 units Omeprazole (Prilosec Cap*) 20 mg PO DAILY@0730 [facility] PRN Reason: Protocol Last Admin: 09/21/17 08:44 Dose: 20 mg Ondansetron HCl (Zofran Inj*) 4 mg IV Q4H PRN PRN Reason: NAUSEA/VOMITING Quetiapine Fumarate (Seroquel Tab*) 50 mg PO BID [facility] Tramadol HCl (Ultram*) 50 mg PO Q12HR PRN PRN Reason: PAIN
[2017-09-21] MEDS: Enoxaparin(*) 40 MG/0.4 ML SYR SUBCUT SCH (20:49)
[2017-09-22] MEDS: LORazepam INJ* 2 MG/ML 1 ML VIAL IV PUSH SCH ×3 (06:49→21:14)
[2017-09-22] MEDS: Dexamethasone TAB* 6 MG PO SCH ×2 (08:36→21:17)
[2017-09-22] MEDS: Nystatin SUSPENSION* 100000 UNITS/ML 5 ML UDC PO SCH ×4 (08:36→21:19)
[2017-09-22] MEDS: Ascorbic Acid TAB* 500 MG PO SCH (08:36)
[2017-09-22] MEDS: QUEtiapine TAB* 25 MG PO SCH ×2 (08:36→21:18)
[2017-09-22] MEDS: Omeprazole CAP* 20 MG PO SCH (08:36)
[2017-09-22] MEDS: Fluconazole 100 MG TAB* TAB PO SCH (08:36)
[2017-09-22] MEDS: amLODIPine TAB* 5 MG PO SCH (08:36)
[2017-09-22] MEDS: LORazepam INJ* 2 MG/ML 1 ML VIAL IV PUSH PRN ×2 (09:01→17:43)
--- NOTE | 2017-09-22 14:14 | CONSULT ---
Identification - Patient Identification Reason for Psychiatric Consultation: Incapacitating Symptoms -: Patient is a 71 year old, F admitted on 09/15/17. - MHU Identification Employment Status: Disabled Hx Psychiatric Hospitalization: No History - Objective HPI: Heather had a small catatonic event again this AM that was truncated by lorazepam administration. She again appears sedated and not particularly spontaneous with speech. Family is present and gives good history. I spoke with Neurologist Arti Palmer who is still concerned about possible organicity. Despite the uncertainties of her situation, Heather remains upbeat and in good spirits. Lab Results: Laboratory Tests 09/15/17 09/16/17 09/16/17 22:19 02:49 06:10 WBC 15.8 H RBC 3.10 L Hgb 10.6 L Hct 31 L MCV 101 H MCH 34 H MCHC 34 RDW 18 H Plt Count 125 L MPV 9 Neut % (Auto) 98.1 H Lymph % (Auto) 0.5 L [place] % (Auto) 0.7 L Eos % (Auto) 0 Baso % (Auto) 0.7 Absolute Neuts (auto) 15.5 H Absolute Lymphs (auto) 0.1 L Absolute Monos (auto) 0.1 Absolute Eos (auto) 0 Absolute Basos (auto) 0.1 Absolute Nucleated RBC 0.01 Nucleated RBC % 0 Sodium Potassium Chloride Carbon Dioxide Anion Gap BUN Creatinine Est GFR ( Amer) Est GFR (Non-Af Amer) BUN/Creatinine Ratio Glucose Lactic Acid 1.4 Calcium Magnesium Total Bilirubin AST ALT Alkaline Phosphatase Troponin I 0.04 H* Total Protein Albumin Globulin Albumin/Globulin Ratio Urine Color Urine Appearance Urine pH Ur Specific [place] Urine Protein Urine Ketones Urine Blood Urine Nitrate Urine Bilirubin Urine Urobilinogen Ur Leukocyte Esterase Urine WBC (Auto) Urine RBC (Auto) Ur Squamous Epith Cells Urine Bacteria Urine Glucose 09/16/17 09/17/17 09/17/17 06:10 00:02 06:25 WBC 14.5 H RBC 3.00 L Hgb 10.1 L Hct 30 L MCV 102 H MCH 34 H MCHC 33 RDW 19 H Plt Count 125 L MPV 9 Neut % (Auto) 98.4 H Lymph % (Auto) 0.9 L [place] % (Auto) 0.5 L Eos % (Auto) 0 Baso % (Auto) 0.2 Absolute Neuts (auto) 14.3 H Absolute Lymphs (auto) 0.1 L Absolute Monos (auto) 0.1 Absolute Eos (auto) 0 Absolute Basos (auto) 0 Absolute Nucleated RBC 0 Nucleated RBC % 0 Sodium 128 L Potassium 4.1 Chloride 97 L Carbon Dioxide 26 Anion Gap 5 BUN 11 Creatinine 0.56 Est GFR ( Amer) 137.2 Est GFR (Non-Af Amer) 106.7 BUN/Creatinine Ratio 19.6 Glucose 109 H Lactic Acid Calcium 8.8 Magnesium Total Bilirubin 0.60 AST 41 H ALT 53 H Alkaline Phosphatase 97 Troponin I Total Protein 5.5 L Albumin 2.5 L Globulin 3.0 Albumin/Globulin Ratio 0.8 L Urine Color Yellow Urine Appearance Clear Urine pH 6.0 Ur Specific [place] 1.009 L Urine Protein 1+(30 mg/dl) H Urine Ketones Negative Urine Blood Negative Urine Nitrate Negative Urine Bilirubin Negative Urine Urobilinogen Negative Ur Leukocyte Esterase Negative Urine WBC (Auto) Trace(0-5/hpf) Urine RBC (Auto) Absent Ur Squamous Epith Cells Present H Urine Bacteria 1+ H Urine Glucose 2+(150 mg/dl) H 09/17/17 09/18/17 09/18/17 06:25 05:22 05:22 WBC 14.9 H RBC 3.01 L Hgb 10.2 L Hct 30 L MCV 100 H MCH 34 H MCHC 34 RDW 18 H Plt Count 142 L MPV 9 Neut % (Auto) 98.4 H Lymph % (Auto) 1.1 L [place] % (Auto) 0.4 L Eos % (Auto) 0 Baso % (Auto) 0.1 Absolute Neuts (auto) 14.7 H Absolute Lymphs (auto) 0.2 L Absolute Monos (auto) 0.1 Absolute Eos (auto) 0 Absolute Basos (auto) 0 Absolute Nucleated RBC 0 Nucleated RBC % 0 Sodium 132 L 132 L Potassium 3.6 3.7 Chloride 102 102 Carbon Dioxide 24 24 Anion Gap 6 6 BUN 15 17 Creatinine 0.47 L 0.45 L Est GFR ( Amer) 168.0 176.6 Est GFR (Non-Af Amer) 130.6 137.4 BUN/Creatinine Ratio 31.9 H 37.8 H Glucose 115 H 105 H Lactic Acid Calcium 8.7 8.6 Magnesium 1.8 L 1.7 L Total Bilirubin 0.40 AST 33 ALT 45 Alkaline Phosphatase 87 Troponin I Total Protein 5.4 L Albumin 2.2 L Globulin 3.2 Albumin/Globulin Ratio 0.7 L Urine Color Urine Appearance Urine pH Ur Specific [place] Urine Protein Urine Ketones Urine Blood Urine Nitrate Urine Bilirubin Urine Urobilinogen Ur Leukocyte Esterase Urine WBC (Auto) Urine RBC (Auto) Ur Squamous Epith Cells Urine Bacteria Urine Glucose 09/19/17 09/19/17 09/20/17 11:45 11:45 04:45 WBC 10.2 9.1 RBC 3.32 L 3.31 L Hgb 11.2 L 11.1 L Hct 33 L 33 L MCV 101 H 100 H MCH 34 H 33 H MCHC 34 33 RDW 19 H 19 H Plt Count 164 174 MPV 8 8 Neut % (Auto) 97.7 H 97.5 H Lymph % (Auto) 1.2 L 1.6 L [place] % (Auto) 0.7 L 0.7 L Eos % (Auto) 0 0 Baso % (Auto) 0.4 0.2 Absolute Neuts (auto) 10.0 H 8.9 H Absolute Lymphs (auto) 0.1 L 0.1 L Absolute Monos (auto) 0.1 0.1 Absolute Eos (auto) 0 0 Absolute Basos (auto) 0 0 Absolute Nucleated RBC 0.01 0.01 Nucleated RBC % 0 0.2 Sodium 128 L Potassium 3.5 Chloride 99 L Carbon Dioxide 22 Anion Gap 7 BUN 18 Creatinine 0.49 L Est GFR ( Amer) 160.1 Est GFR (Non-Af Amer) 124.5 BUN/Creatinine Ratio 36.7 H Glucose 216 H Lactic Acid Calcium 8.4 L Magnesium Total Bilirubin 0.40 AST 25 ALT 44 Alkaline Phosphatase 87 Troponin I Total Protein 5.6 L Albumin 2.2 L Globulin 3.4 Albumin/Globulin Ratio 0.6 L Urine Color Urine Appearance Urine pH Ur Specific [place] Urine Protein Urine Ketones Urine Blood Urine Nitrate Urine Bilirubin Urine Urobilinogen Ur Leukocyte Esterase Urine WBC (Auto) Urine RBC (Auto) Ur Squamous Epith Cells Urine Bacteria Urine Glucose 09/20/17 04:45 WBC RBC Hgb Hct MCV MCH MCHC RDW Plt Count MPV Neut % (Auto) Lymph % (Auto) [place] % (Auto) Eos % (Auto) Baso % (Auto) Absolute Neuts (auto) Absolute Lymphs (auto) Absolute Monos (auto) Absolute Eos (auto) Absolute Basos (auto) Absolute Nucleated RBC Nucleated RBC % Sodium 131 L Potassium 3.7 Chloride 101 Carbon Dioxide 23 Anion Gap 7 BUN 16 Creatinine 0.49 L Est GFR ( Amer) 160.1 Est GFR (Non-Af Amer) 124.5 BUN/Creatinine Ratio 32.7 H Glucose 128 H Lactic Acid Calcium 8.4 L Magnesium Total Bilirubin 0.40 AST 18 ALT 41 Alkaline Phosphatase 94 Troponin I Total Protein 5.4 L Albumin 2.1 L Globulin 3.3 Albumin/Globulin Ratio 0.6 L Urine Color Urine Appearance Urine pH Ur Specific [place] Urine Protein Urine Ketones Urine Blood Urine Nitrate Urine Bilirubin Urine Urobilinogen Ur Leukocyte Esterase Urine WBC (Auto) Urine RBC (Auto) Ur Squamous Epith Cells Urine Bacteria Urine Glucose Exam Appearance: Well Developed/Nourished Hygiene: Normal Grooming: Well Kept Psychomotor Activities: Abnormal-Decreased Exhibits Abnormal Movement: No Attitude and Relatedness: Cooperative Eye Contact: Good - Speech Quality: Unpressured Latencies: Normal Quantity: Terse Patient's Decription of Mood: "Fine" Observed Affect: Fair Affect Consistent with: Euthymia Patient's Thought Process: Coherent Thought Content: No Passive Wish, No Suicidal Planning, No Homicidal Ideation, No Paranoid Ideation Experiencing Hallucinations: No, Sensorium is Clear Type of Hallucinations: Visual: No, Auditory: No, Command: No Level of Consciousness: Lethargic Orientation: Yes Intact, Yes Orientated to Time, Yes Orientated to Place, Yes Orientated to Person Impulse Control: Intact Insight and Judgement: Good Impression - Impression Clinical Impression: 71 y.o. , white female with a history of colon cancer with brain metastases, currently admitted to the hospitalist service, presents with catatonic episodes for the past 5-6 days. 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 Appreciate neurology input. We will increase quetiapine to 75mg PO BID in the hopes of taking her off IV lorazepam, which is effective, but quite sedating. This provider will be unavailable over the long Holiday weekend, but will return to service on September 26. In the meantime, the service will be covered by Dr. Sanjeev Lopes ([phone]). Continued Medication Management: Start Medication Medications: Current Medications Acetaminophen (Tylenol Tab*) 650 mg PO Q4H PRN PRN Reason: FEVER/PAIN Amlodipine Besylate (Norvasc Tab*) 10 mg PO 0900 [facility] Last Admin: 09/22/17 08:36 Dose: 10 mg Ascorbic Acid (Vitamin C Tab*) 1,000 mg PO DAILY [facility] Last Admin: 09/22/17 08:36 Dose: 1,000 mg Cyanocobalamin (Vitamin B12 Tab*) 1,000 mcg PO MoWeFr@0900 [facility] Last Admin: 09/21/17 08:45 Dose: 1,000 mcg Dexamethasone (Decadron Tab*) 6 mg PO Q12H [facility] Last Admin: 09/22/17 08:36 Dose: 6 mg Diphenoxylate HCl/Atropine (Lomotil Tab*) 1 tab PO QID PRN PRN Reason: DIARRHEA Enoxaparin Sodium (Lovenox(*)) 40 mg SUBCUT Q24H [facility] Last Admin: 09/21/17 20:49 Dose: 40 mg Fluconazole (Diflucan 100 Mg Tab*) 100 mg PO DAILY [facility] Last Admin: 09/22/17 08:36 Dose: 100 mg Guaifenesin (Robitussin*) 5 ml PO Q4H PRN PRN Reason: COUGH Last Admin: 09/18/17 03:25 Dose: 5 ml Heparin Sodium (Porcine) (Heparin Flush Port (Ivad)) 5 ml FLUSH DAILY [facility] PRN Reason: Protocol Last Admin: 09/22/17 08:36 Dose: 5 ml Lorazepam (Ativan Inj*) 0.5 mg IV PUSH Q4H PRN PRN Reason: catatonia Last Admin: 09/22/17 09:01 Dose: 0.5 mg Lorazepam (Ativan Inj*) 0.5 mg IV PUSH 0430,1230,2030 [facility] Last Admin: 09/22/17 13:09 Dose: 0.5 mg Nystatin (Nystatin Suspension*) 500,000 units PO QID [facility] Stop: 09/22/17 21:24 Last Admin: 09/22/17 13:09 Dose: Not Given Omeprazole (Prilosec Cap*) 20 mg PO DAILY@0730 [facility] PRN Reason: Protocol Last Admin: 09/22/17 08:36 Dose: 20 mg Ondansetron HCl (Zofran Inj*) 4 mg IV Q4H PRN PRN Reason: NAUSEA/VOMITING Quetiapine Fumarate (Seroquel Tab*) 75 mg PO BID [facility] Tramadol HCl (Ultram*) 50 mg PO Q12HR PRN PRN Reason: PAIN
--- NOTE | 2017-09-22 14:53 | PN ---
PROGRESS NOTE: DATE OF FOLLOWUP: 09/22/17 OVERNIGHT EVENTS: The patient experienced another episode of mild breakthrough catatonia this morning, which was treated with 0.5 mg of lorazepam IV with good effect. Her nurse reports that she found the patient with her arms extended down by her sides. She was able to squeeze on command and was fully oriented, but her arms relaxed once she was given the Ativan. She experienced a similar episode yesterday morning. MEDICATIONS: Include: 1. Amlodipine 10 mg daily. 2. Vitamin B12 at 1000 mcg 3 times weekly. 3. Dexamethasone 6 mg q. 12 hours, which Dr. Villagomez decreased from q. 8 hours in the evening on 09/20. 4. Enoxaparin 40 mg q. 24 hours. 5. Fluconazole 100 mg daily. 6. Lorazepam 0.5 mg IV q. 4 hours p.r.n. 7. Lorazepam 0.5 mg 3 times daily IV while awake. 8. Quetiapine 50 mg twice daily. 9. Tramadol 50 mg q. 12 hours p.r.n. PHYSICAL EXAMINATION: Vital Signs: Temperature 98.1, blood pressure 136/78, heart rate 75, oxygen saturation 92% on room air. On examination, the patient was seated comfortably in the chair at her bedside. She appears tired. Heart is in regular rate and rhythm with no murmurs, rubs or gallops. The lungs were clear posteriorly. Her skin is intact. On neurologic exam, she is oriented to the hospital as well as the month and the year, but had trouble coming up with the exact date, though she knew it was towards the beginning of the month. Naming of objects was intact. She was able to follow commands of the examination. Pupils are equal, round, and reactive from 4 to 2 mm bilaterally. Her versions are full without nystagmus. Cox are full to confrontation with no extinction. Facial sensation and musculature is slow and symmetric. Hearing is intact to voice. Palate elevates symmetrically and the tongue is midline. On motor examination, her movements are bradykinetic. Her tone is normal. Her strength appears full with no pronator drift. Sensation is intact to light touch in the upper and lower extremities. Reflexes are 2+ in the upper extremities and hypoactive in the lower extremities. [id number] was intact without ataxia, but as mentioned, her movements are very slow. 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 She continues to have mild breakthrough episodes despite treatment. Under Psychiatry's guidance, she is being switched over to quetiapine and lorazepam is being tapered. She continues to have bradykinesia and her mental status is not at her baseline according to her family. I think that we should proceed with some further investigations to make sure that we are not missing any other treatable etiology of the catatonia. It is probable that her catatonia is related to her underlying malignancy with the metastatic lesion to the brain as well as the presence of the dexamethasone, which she was started on less than a month ago, but this can also be a presentation of paraneoplastic syndrome such as anti-NMDA receptor encephalitis and rarely can be a presentation for nonconvulsive seizures as well. I discussed with the patient and her daughter, my recommendation for proceeding with lumbar puncture with CSF evaluation for paraneoplastic antibodies as well as a serum evaluation for paraneoplastic antibodies. In addition to that, we will likely get a prison video EEG overnight tonight to try and capture one of the catatonic episodes, which seem to be happening either overnight or in the morning. The patient and her daughter were in agreement with this. I tried to contact her and left a message for him. I have spoken with Dr. Villagomez and Dr. Middleton as well and they feel that she would be able to undergo treatment with high dose steroids or IVIG if we did detect a paraneoplastic syndrome. I also have paged out the anesthesiologist on-call to have a lumbar puncture set up. [id number]/[facility] #: [id number] [facility]ENTERDerek
--- NOTE | 2017-09-22 17:25 | PN ---
Progress Note - Progress Note Date of Service: 09/22/17 SOAP: Subjective: []Chart reviewed, events since admission reviewed. Feeling OK, no complaints to this ticket writer. Has been somewhat sedated by ativan, but is comfortable. Work-up of catatonic events cont.'s with overnight EEG and plan for LP tonight. [id number] at bedside and questions if steroids could play a roll. Medications: Acetaminophen (Tylenol Tab*) 650 mg PO Q4H PRN PRN Reason: FEVER/PAIN Amlodipine Besylate (Norvasc Tab*) 10 mg PO 0900 [facility] Last Admin: 09/22/17 08:36 Dose: 10 mg Ascorbic Acid (Vitamin C Tab*) 1,000 mg PO DAILY [facility] Last Admin: 09/22/17 08:36 Dose: 1,000 mg Cyanocobalamin (Vitamin B12 Tab*) 1,000 mcg PO MoWeFr@0900 [facility] Last Admin: 09/21/17 08:45 Dose: 1,000 mcg Dexamethasone (Decadron Tab*) 6 mg PO Q12H [facility] Last Admin: 09/22/17 08:36 Dose: 6 mg Diphenoxylate HCl/Atropine (Lomotil Tab*) 1 tab PO QID PRN PRN Reason: DIARRHEA Enoxaparin Sodium (Lovenox(*)) 40 mg SUBCUT Q24H [facility] Last Admin: 09/21/17 20:49 Dose: 40 mg Fluconazole (Diflucan 100 Mg Tab*) 100 mg PO DAILY [facility] Last Admin: 09/22/17 08:36 Dose: 100 mg Guaifenesin (Robitussin*) 5 ml PO Q4H PRN PRN Reason: COUGH Last Admin: 09/18/17 03:25 Dose: 5 ml Heparin Sodium (Porcine) (Heparin Flush Port (Ivad)) 5 ml FLUSH DAILY [facility] PRN Reason: Protocol Last Admin: 09/22/17 08:36 Dose: 5 ml Lorazepam (Ativan Inj*) 0.5 mg IV PUSH Q4H PRN PRN Reason: catatonia Last Admin: 09/22/17 09:01 Dose: 0.5 mg Lorazepam (Ativan Inj*) 0.5 mg IV PUSH 0430,1230,2030 [facility] Last Admin: 09/22/17 13:09 Dose: 0.5 mg Nystatin (Nystatin Suspension*) 500,000 units PO QID [facility] Stop: 09/22/17 21:24 Last Admin: 09/22/17 13:09 Dose: Not Given Omeprazole (Prilosec Cap*) 20 mg PO DAILY@0730 [facility] PRN Reason: Protocol Last Admin: 09/22/17 08:36 Dose: 20 mg Ondansetron HCl (Zofran Inj*) 4 mg IV Q4H PRN PRN Reason: NAUSEA/VOMITING Quetiapine Fumarate (Seroquel Tab*) 75 mg PO BID [facility] Tramadol HCl (Ultram*) 50 mg PO Q12HR PRN PRN Reason: PAIN Objective: [] Vital Signs Temp Pulse Resp BP Pulse Ox 98.1 F 85 17 131/79 94 09/22/17 08:05 09/22/17 09:06 09/22/17 15:43 09/22/17 09:06 09/22/17 09:06 A&Ox3, EOMI, PERRLA, answers questions slowly and deliberately. Good strength = bilat. HRR, no murmur noted, S1S2 LS clear bilat. +BS, abd. soft and non-tender Trace pedal edema +PP=bilat. 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 Appreciate their input. Plan: []Cont. PO Fluconazole Check AM labs
[2017-09-22] MEDS ORDERED: LORazepam INJ* 2 MG/ML 1 ML VIAL ONE (18:54)
[2017-09-22] MEDS ORDERED: LORazepam INJ* 2 MG/ML 1 ML VIAL IV PUSH ONE (20:00)
[2017-09-22] MEDS: Enoxaparin(*) 40 MG/0.4 ML SYR SUBCUT SCH (21:22)
[2017-09-22 22:09] LABS: CSF Glucose 97 mg/dL (40-70)
[2017-09-22 22:42] LABS: Body Fluid Appearance Cloudy
[2017-09-22 22:43] LABS: BF WBC Count #1 20
[2017-09-22 22:44] LABS: BF WBC Count #2 20; Body Fluid WBC 20 /mcL; WBC counts within 15%? Yes
[2017-09-22 22:46] LABS: BF RBC Count #1 1960
[2017-09-22 22:47] LABS: BF RBC Count #2 2090; RBC counts within 6%? Yes
[2017-09-22 22:56] LABS: Body Fluid Total Cells Counted 20
[2017-09-23] MEDS: LORazepam INJ* 2 MG/ML 1 ML VIAL IV PUSH SCH (05:29)
[2017-09-23 05:43] LABS: Hematocrit 37 % (35-47); Hemoglobin 12.4 g/dl (12.0-16.0); Mean Corpuscular HGB Conc 34 g/dl (31-36); Mean Corpuscular Hemoglobin 33 pg (27-31); Mean Corpuscular Volume 99 fL (80-97); Mean Platelet Volume 8 um3 (7.4-10.4); Red Blood Count 3.71 10^6/ul (4.0-5.4); Red Cell Distribution Width 19 % (10.5-15); White Blood Count 9.5 10^3/ul (3.5-10.8)
[2017-09-23 05:58] LABS: Albumin 2.5 g/dL (3.2-5.2); BUN/Creatinine Ratio 27.5 (8-20); Calcium 8.4 mg/dL (8.6-10.3); EGFR African American 152.9 (>60); EGFR Non-African American 118.9 (>60); Potassium 4.1 mmol/L (3.5-5.0); Total Bilirubin 0.4 mg/dL (0.2-1.0); Total Protein 5.5 g/dL (6.4-8.9)
[2017-09-23 06:14] LABS: Add Diff/Slide Review? Slide Review Added; Comments Flag Yes
[2017-09-23] MEDS: LORazepam INJ* 2 MG/ML 1 ML VIAL IV PUSH PRN ×3 (07:52→18:06)
[2017-09-23] MEDS ORDERED: LORazepam INJ* 2 MG/ML 1 ML VIAL IV PUSH ONE (09:00)
[2017-09-23] MEDS: QUEtiapine TAB* 25 MG PO SCH (09:11)
[2017-09-23] MEDS: amLODIPine TAB* 5 MG PO SCH (09:12)
[2017-09-23] MEDS: Cyanocobalamin TAB* 500 MCG PO SCH (09:13)
[2017-09-23] MEDS: Fluconazole 100 MG TAB* TAB PO SCH (09:13)
[2017-09-23] MEDS: Omeprazole CAP* 20 MG PO SCH (09:13)
[2017-09-23] MEDS: Ascorbic Acid TAB* 500 MG PO SCH (09:13)
[2017-09-23] MEDS: Dexamethasone TAB* 6 MG PO SCH (09:16)
--- NOTE | 2017-09-23 13:05 | CONSULT ---
Consult Consult: I am doing a followup assessment of this 70 year old white female who has metasized colon cancer (with adrenal and brain mets, according to the ) and recent onset of episodes of catatonia which has been responding to IV pushes of lorazepam 0.[address] Colbert is attempting to try 75 mg seroquel BID as well. The patient is alert and oriented with a clear sensorium and no signs of delirium, bao, or schizophrenia. She has mild stiffness in her arms but not in her mouth (her uses that as a sign to ask for lorazepam). She denies acute pain. Impression--catatonia with no clear etiology but not psychiatric. 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 LP results are pending. It is reasonable to continue to use PRN lorazepam and even to raise the dose if needed She is not delirious at this time. For now also continue scheduled lorazepam since she has been having ongoing episodes of catatonia.
[2017-09-23] MEDS ORDERED: LORazepam INJ* 2 MG/ML 1 ML VIAL IV PUSH SCH (14:00)
--- NOTE | 2017-09-23 14:08 | EEG ---
PROLONGED EEG REPORT: DATE OF VISIT: 09/22/17 - ROOM #416 DURATION: The duration of the EEG is 2 hours and 22 minutes. HISTORY: Heather Krishnan is a 71-year-old woman with a history of metastatic colon cancer with lesions to the adrenal glands, lung, as well as left occipital lobe, who was admitted a week ago with Legionella pneumonia and then developed episodes of catatonia. Prolonged EEG is requested to characterize these events as epileptic or nonepileptic. MEDICATIONS: Include: 1. Ondansetron. 2. Lorazepam 0.5 mg q.8 hours. 3. Quetiapine 50 mg b.i.d. 4. Guaifenesin p.r.n. 5. Acetaminophen p.r.n. 6. Heparin. 7. Fluconazole. 8. Vitamin B12. 9. Vitamin C. 10. Amlodipine. 11. Omeprazole. 12. Enoxaparin. 13. Tramadol p.r.n. 14. Dexamethasone 6 mg q.12 hours. DESCRIPTION: At the onset of the recording, the patient was in a quiet sedated state, which consisted of scant frontally predominant muscle artifact with the background mostly consisting of mixed frequency theta and alpha range frequencies with superimposed excess beta activity, which was frontocentrally predominant. With arousals from this state, there was evident organization in terms of anterior to posterior voltage and frequency gradients. There was a posterior rhythm observed, which was typically in the 6 Hz to 7 Hz range, but was noted to be maximal at 8.5 Hz, but not sustained at the frequency for long. She was noted to fall asleep during the initial portions of the recording and sleep spindles were observed, which were bilaterally synchronous and symmetrical. As the recording progressed, she became more alert and the background developed more of a diffuse theta pattern in the range of 5 Hz to 7 Hz diffusely. She developed increasing muscle artifact frontally and temporally and then began to develop catatonic posturing with her mouth first hanging partially open and then opening wider and finally her arms would extend elevated off the bed. The left arm externally rotated somewhat. When she was first entering this state, she was able to make some voluntary movements such as taking a drink from a straw. During the majority of the episode, though she was asked certain things such as to state her name and she was not able to do so. She was asked to lift her arms and she was unable to do so. She was actually noted to be able to lift her legs, however. Approximately 20 minutes into the episode, she was given 0.5 mg of Ativan. She began to relax intermittently about 10 minutes after the Ativan was given. She was then able to start answering some questions. For example, when asked if she wanted dinner , she replied sure. She was able to state her date of as well as the president. Her mouth intermittently would hang open and she was asked to close it and she would be able to do so. She was however slow to respond. The EEG continued to show a previously described theta pattern without any clear evolution in terms of frequency or distribution. Throughout the recording, there were no epileptiform abnormalities noted. IMPRESSION: This is an abnormal waking and sleep EEG. At the beginning of the recording, the posterior rhythm was slower than expected for age, consistent with a mild, nonspecific, diffuse encephalopathy. There was excess beta activity present, which is consistent with medication effect from the benzodiazepine. During a typical episode of catatonic posturing, the EEG showed a more diffuse theta slowing; however, there was no evolution in either distribution or frequency to suggest a true ictal pattern. This appeared to be consistent with a worsened encephalopathy and her movements were somewhat improved with the administration of lorazepam, though there was not a significant change in EEG. These catatonic movements are most consistent with a nonepileptic phenomenon. [id number]/[facility] #: [id number] [facility]OSPITALDerek
--- NOTE | 2017-09-23 16:32 | DS ---
CC: Dr. Walker. DISCHARGE SUMMARY: DATE OF ADMISSION: 09/15/17 DATE OF TRANSFER: 09/23/17 DIAGNOSES AT TRANSFER: 1. Colon cancer metastatic to brain. 2. Legionella pneumonia. 3. Delirium. 4. Episodic catatonia, unclear etiology HOSPITAL COURSE: Patient was initially admitted on 09/15/17 with shortness of breath and a cough. She had had a gamma knife done at [facility] 1 week prior to admission. She tolerated that procedure well and had been doing well at home for approximately 1 week. Three days prior to admission, she developed cough, worsening shortness of breath as well as intermittent mental status changes. She had delirium at home and became disoriented. On presentation, she had leukocytosis, white count of 19,000, she was afebrile, and a CTA of the chest showed consolidation versus mass throughout both lungs, I will question neoplasm or infection. She had a urine legionella antibody positive and was placed on levofloxacin, which she has tolerated well. During the admission, she started to develop episodes of catatonia. She would stare into space, sometimes with near hands up in the air and be completely unresponsive. Initially, symptoms would last for 15 or 20 minutes and then resolve. In between these episodes, she was lucid. Separate from these episodes, she did have an intermittent delirium. Over the course of past week, the delirium has largely cleared, but the catatonic episodes have progressed. She had a neurology consult and with a tentative diagnosis of catatonia malignancy. She was treated with Ativan, which seemed to improve her symptoms. She had a psychiatry consult who initially concurred and we continued the Ativan, Seroquel was added. Over the past 2 to 3 days, her episodes have progressed despite treatment with Lorazepam as well as Seroquel. Followup evaluation today by Psychiatry is that is not catatonia malignancy and questions a paraneoplastic syndrome. 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 She had a lumbar puncture that shows a mildly elevated protein, some red cells, no malignant cells. She had an EEG done today during a catatonic episode. She is found to have diffuse swelling consistent with encephalomalacia, there is some increased swelling with the episode, but there is no seizure or epileptiform activity. Conclusion of Psychiatry and Neurology this morning that we do not have a clear explanation for her progressive neurologic condition. Paraneoplastic antibodies are being sent, but they did not feel the evidence was strong enough to support IVIG empirically. Given her recent gamma knife as well as treatment on experimental protocol at [facility], she is going to be escalated to a higher level of care. Case was discussed with Dr. Medina this morning and we will plan transfer to [facility] this afternoon. Ambulance transfer will make sure she has p.r.n. Ativan. [id number]/[facility] #: [id number] [facility]ENTERDerek
[2017-09-23 18:39] VITALS: BP 138/69
--- NOTE | 2017-09-24 02:00 | PN ---
CC: Dr. Mauro Medina, [facility] * PROGRESS NOTE: DATE OF FOLLOWUP: 09/23/17 ONCOLOGIST: Dr. Mauro Medina. HISTORY: Overnight, the patient experienced another catatonic episode while she was hooked up to EEG. She received 0.5 mg of IV Ativan after the episode had been going on for approximately 15 to 20 minutes. Eventually with this, she did settle down somewhat but did require a few more doses of Ativan in the evening. She then missed her scheduled Ativan this morning and had recurrent episode just prior to 8 a.m. and received 0.5 mg of IV Ativan again. I then came up to see the patient and she had never fully relaxed in terms of her hands still being rigid and we had prepared to give her an additional 1 time dose of 0.5 mg but then she was engaged in conversation and seemed to relax much more and come out of the episode. In addition to the prolonged EEG last night, she did undergo lumbar puncture as well and some preliminary results are available and of course there are other send- out tests that are pending. Today, she denies any headache. She still appears tired. MEDICATIONS: Reviewed and include: 1. Amlodipine 10 mg. 2. Vitamin C. 3. Vitamin B12. 4. Dexamethasone 6 mg q.12 hours. 5. Lovenox, which was held last night. 6. Fluconazole 100 mg daily. 7. Lorazepam 0.5 mg q.8 hours as well as 0.5 mg q.2 hours p.r.n. 8. Prilosec 20 mg daily. 9. Quetiapine 75 mg twice daily. PHYSICAL EXAM: Vital Signs: Temperature 98.3, blood pressure 169/89, heart rate is 67, oxygen saturation 96% on room air. On my initial evaluation, the patient was lying in her bed and was able to direct her gaze towards me, but did have her mouth open with her arms extended out by her sides rigidly. I was not able to easily flex her arms at the elbows but if her arm was passively raised higher off the bed, she did sustain in that posture briefly. Several minutes after I had been in the room and had been talking to her and her family, she began to answer some questions and her mouth relaxed and her arms then relaxed and I was able to bend her elbows and fold her arms on her stomach comfortably where they remained. Otherwise, her face is symmetric. Her speech is slow, but not dysarthric and understandable. She has full strength in the upper and lower extremities, but she did appear to have some weakness in her right ankle dorsiflexor today. She has no pronator drift. She has bradykinetic movements and when asked to tap her thumb and index finger together, she rubs them together instead. [id number] shows no evidence of ataxia. DIAGNOSTIC STUDIES/LAB DATA: Her EEG, which captured atypical catatonic episode yesterday, was not normal in that it showed diffuse theta slowing, which became more prominent during the episode, but there was no clear evolution in terms of frequency or distribution and therefore, the episode was most consistent with a nonepileptic event. Her cerebrospinal fluid was pink in color and cloudy in appearance and in tube 4 , there were 2025 rbc's and 20 wbc's noted with 60% neutrophils and 25% lymphocytes noted. Glucose was 97 and total protein was 36. There is no growth to date in the CSF and Gram stain is negative. Flow cytometry is pending as is paraneoplastic panel, which should be sent out on the fluid and serum paraneoplastic antibody. IMPRESSION AND PLAN: A 71-year-old woman with metastatic colon cancer with a left occipital lesion, status post Gamma Knife surgery over 2 weeks ago, presenting with legionella pneumonia as well as new-onset catatonia. For her cancer, she has been undergoing a clinical trial at [facility] with 5-FU as well as what sounds like an endothelial growth factor inhibitor. Her catatonia was initially treated with scheduled Ativan, which had some improvement initially though with sedation. With the involvement of the psychiatry service, she has been switched over to quetiapine, which has been progressively increased to the current dose of 75 mg twice daily. She remains on the scheduled Ativan as well , but only being given when she is awake. Her catatonic episodes seemed to be now breaking through more frequently. Etiology of the catatonia in general includes adverse reaction to dexamethasone, the combination of the metastatic brain lesion as well as the severe pneumonia, a paraneoplastic process or autoimmune encephalitis as well as question of whether one of her clinical trial drugs could be related to this. With the recent worsening, there is a possibility that the Seroquel is not actually helping and I question whether this should be tapered and discontinued while continuing her scheduled Ativan to see if her episodes return to the way that they were 2 or 3 days ago. In addition, we should look towards reducing her dexamethasone more quickly and perhaps going to 4 mg q.12 hours now. Her MRI scan showed improvement in the edema and there is certainly no shift suggesting the need for high doses of steroids. With respect to her spinal fluid analysis, she does have some inflammatory cells present in the fluid and I question whether this could be secondary to the tumor itself being so close and abutting the meninges versus an inflammatory reaction after the Gamma Knife surgery. I have a call into Dr. Medina to discuss some of these matters. Finally, given that she has been here approximately a week now with these symptoms, in discussion with the hematology/ oncology service, we are considering whether a transfer to tertiary care facility in [place] where her specialists are located would be in her best interest. Dr. Still has received sign out on the patient and saw her as well this morning and if she remains in our hospital, then he will be taking over her care for the neurology service this evening. [id number]/[facility] #: [id number] [facility]PITALDerek
== END 2017-09-23 18:30 | disposition short-term general hospital (02) | DRG 177 ==
LOC: ED 14:52 → MED 21:21
PROVIDERS: ADMIT Hospitalist; ATTEND Internal Medicine Hematology & Oncology
PROC: 4A00X4Z Measurement of Central Nervous Electrical Activity, External Approach (ICD-10-PCS; 2017-09-18)
PROC: 009U3ZX Drainage of Spinal Canal, Percutaneous Approach, Diagnostic (ICD-10-PCS; principal; 2017-09-22)
DX: A48.1 Legionnaires' disease (principal); G93.40 Encephalopathy, unspecified; G93.6 Cerebral edema; E46 Unspecified protein-calorie malnutrition; C78.01 Secondary malignant neoplasm of right lung; C79.31 Secondary malignant neoplasm of brain; E87.1 Hypo-osmolality and hyponatremia; B37.9 Candidiasis, unspecified; C18.9 Malignant neoplasm of colon, unspecified; C79.71 Secondary malignant neoplasm of right adrenal gland; K21.9 Gastro-esophageal reflux disease without esophagitis; R41.0 Disorientation, unspecified; F06.1 Catatonic disorder due to known physiological condition; G93.89 Other specified disorders of brain; R74.8 Abnormal levels of other serum enzymes; I25.10 Atherosclerotic heart disease of native coronary artery without angina pectoris; M19.90 Unspecified osteoarthritis, unspecified site; G43.909 Migraine, unspecified, not intractable, without status migrainosus; G62.9 Polyneuropathy, unspecified; R53.1 Weakness; Y95 Nosocomial condition; I10 Essential (primary) hypertension; Z98.42 Cataract extraction status, left eye; Z92.21 Personal history of antineoplastic chemotherapy; Z92.3 Personal history of irradiation; Z91.030 Bee allergy status; Z98.41 Cataract extraction status, right eye; Z90.711 Acquired absence of uterus with remaining cervical stump; Z90.49 Acquired absence of other specified parts of digestive tract; Z88.5 Allergy status to narcotic agent; Z88.8 Allergy status to other drugs, medicaments and biological substances; Z88.6 Allergy status to analgesic agent; Z82.49 Family history of ischemic heart disease and other diseases of the circulatory system; Z84.1 Family history of disorders of kidney and ureter; Z68.24 Body mass index [BMI] 24.0-24.9, adult
CPT/HCPCS: 36415; 70450; 70553; 71020; 71275; 80048; 80053; 81003; 81015; 82248; 82945; 83519; 83520; 83605; 83735; 84145; 84157; 84484; 85025; 85384; 85610; 85730; 86255; 86256; 86341; 86850; 86900; 86901; 87040; 87070; 87086; 87205; 87899; 88112; 88184; 88185; 88188; 88189; 89051; 93005; 95819; 99232; 99233; 99239; A9270-GY; A9579; J0456; J0696; J1642; J1650; J2060; J3475; Q0164; Q9967

== ENCOUNTER 2017-10-07 13:08 | Inpatient (IN) | payer MEDICARE, OTHER ==
[2017-10-07] MEDS ORDERED: NS 0.9% 1000 ML* 1,000 ML IV ONE (14:25)
[2017-10-07 14:54] LABS: Hematocrit 32 % (35-47); Mean Corpuscular HGB Conc 34 g/dl (31-36); Mean Corpuscular Hemoglobin 33 pg (27-31); Mean Corpuscular Volume 98 fL (80-97); Mean Platelet Volume 7 um3 (7.4-10.4); Red Cell Distribution Width 18 % (10.5-15); White Blood Count 4.9 10^3/ul (3.5-10.8)
[2017-10-07 14:56] LABS: Add Diff/Slide Review? Slide Review Added; Comments Flag Yes
[2017-10-07 15:05] LABS: Urine Bacteria Absent (Absent); Urine Bilirubin Negative (Negative); Urine Glucose Negative (Negative); Urine Nitrite Negative (Negative)
[2017-10-07 15:07] LABS: Potassium 3.3 mmol/L (3.5-5.0)
[2017-10-07 15:08] LABS: Albumin 3.1 g/dL (3.2-5.2); BUN/Creatinine Ratio 44.7 (8-20); Calcium 8.8 mg/dL (8.6-10.3); EGFR Non-African American 130.6 (>60); Globulin 2.6 g/dL (2-4); Magnesium 1.9 mg/dL (1.9-2.7); Total Bilirubin 0.5 mg/dL (0.2-1.0); Total Protein 5.7 g/dL (6.4-8.9); Troponin I 0.02 ng/mL (<0.04)
[2017-10-07 15:11] LABS: Benzodiazepine Urine Screen None Detected (None Detect)
[2017-10-07 15:42] LABS: TSH (Thyroid Stimulating Horm) 8.13 mcIU/mL (0.34-5.60)
[2017-10-07] MEDS ORDERED: Ondansetron ODT TAB* 4 MG PO PRN (17:35)
[2017-10-07] MEDS ORDERED: Prochlorperazine TAB* 10 MG PO PRN (17:35)
[2017-10-07] MEDS ORDERED: Simvastatin TAB(NF) 20 MG TAB PO SCH (18:00)
[2017-10-07 18:19] LABS: Free T4 1.12 ng/dL (0.61-1.12)
--- NOTE | 2017-10-07 20:34 | HP ---
CC: Dr. Walker * [facility] MEDICINE HISTORY AND PHYSICAL: DATE OF ADMISSION: 10/07/17 PRIMARY CARE PHYSICIAN: Dr. Walker. ATTENDING PHYSICIAN: DO Larry Carpio (dictation provided by Lanette Rodriguez NP ). CHIEF COMPLAINT: Catatonia. HISTORY OF PRESENT ILLNESS: Ms. Krishnan is a 71-year-old female with a past medical history of metastatic colon cancer to the lung, right adrenal gland and brain, status post chemoradiation, hemicolectomy and gamma knife surgery for a left occipital brain lesion on 09/05/17 at [facility]. She had been admitted to our hospital from 09/15/17 to 09/23/17 with treatment for Legionella pneumonia and episodes of catatonia. 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 She stayed there until 10/05/17. Extensive workup at [facility] demonstrated no physical etiology for her symptoms and the ultimate decision was that this is likely related to a conversion disorder. The patient was discharged from [facility] on 10/05/17 to [facility] in [place]. The patient stayed there the night of 10/05/17. On the day of 10/06/17, which was Thanksgiving, the brought her home for dinner. She was alert and interactive with family members, but by the time she was returned to [place] , she had become more withdrawn. The patient's went to see her this morning at about 7 a.m. and at that time, he noted that she was again catatonic consistent with her previous episodes. He ultimately brought her here to [facility] via EMS when her catatonia persisted. The patient is unable to offer any complaints and the has no other concerns. In the emergency room, Ms. Krishnan appears catatonic. She is withdrawn and not responding to stimulation. Her labs show that she has a chronic anemia with a hemoglobin of 11. Her BUN is 21. Her creatinine is 0.47. Her urine shows 1+ leuk esterase, but this is from a Rosales draw and therefore, I think it is likely contamination or colonization. The patient has a chronic indwelling Rosales secondary to urinary retention. PAST MEDICAL HISTORY: 1. Metastatic colon cancer to the lung, right adrenal gland, and brain, status post chemoradiation, hemicolectomy and gamma knife surgery for a left occipital brain lesion on 09/05/17. 2. Legionella pneumonia. 3. Catatonia, psychiatric. MEDICATIONS: Outpatient are: 1. Artificial Tears 1 drop left eye q.2 hours. 2. Calcium carbonate 600 mg p.o. daily. 3. Amlodipine 5 mg p.o. daily. 4. Ascorbic acid 1000 mg p.o. daily. 5. Cholecalciferol 400 units p.o. daily. 6. Cyanocobalamin 1000 mcg p.o. Tuesday, Tuesday, Tuesday. 7. Hydrocortisone 10 mg p.o. q.p.m. and 20 mg p.o. q.a.m. 8. Magnesium oxide 200 mg p.o. daily. 9. Omeprazole 40 mg p.o. daily. 10. Ondansetron 8 mg p.o. q.8 hours p.r.n. 11. Oxycodone 5 mg p.o. q.4 hours p.r.n. 12. Compazine 10 mg p.o. q.6 hours p.r.n. 13. Quetiapine 50 mg p.o. at bedtime. 14. Senna 1 tab p.o. at bedtime. 15. Simvastatin 20 mg p.o. once. ALLERGIES: To PENTAZOCINE, PROPOXYPHENE, ASPIRIN, BEE VENOM, CODEINE, OXALIPLATIN. FAMILY HISTORY: Significant for father with CHF. Mother with hypertension. Maternal uncles with kidney disease. SOCIAL HISTORY: The patient was never a smoker. No recent alcohol use. No history of illicit drug use. She lives with her , who is her healthcare proxy. REVIEW OF SYSTEMS: Unobtainable. PHYSICAL EXAMINATION GENERAL: Ms. Krishnan is lying in the bed. She does not appear to be in any acute distress. VITAL SIGNS: Temperature 97.9, heart rate 79, respiratory rate 14, O2 saturation is 96% on room air, blood pressure 141/77. LUNGS: Clear to auscultation bilaterally with no accessory muscle use and good aeration. HEART: S1, S2. No murmur, rub, or gallop and regular. ABDOMEN: Soft, nontender with bowel sounds positive x4. EXTREMITIES: No cyanosis or edema. NEUROLOGIC: Her brow is furrowed. She resists attempts to me to open her eyes. Her pupils are equal. She does not follow commands. Her face is symmetrical. She appears to be showing evidence of suggestion of reji a bit on the left upper extremity, but there is good movement passively to all 4 extremities. SKIN: Intact. Positive for tenting. DIAGNOSTIC STUDIES/LAB DATA: WBC of 4.9, hemoglobin 11.0, hematocrit 32, platelet count 182,000. Sodium 137, potassium 3.3, chloride 102, serum bicarbonate 27, BUN 21, creatinine 0.47, glucose 91, lactic acid 0.6. TSH 8.13 , free T4 of 1.12. Urine shows 1+ leuk esterase, no nitrites, no bacteria. Tox screen is negative. EKG showed sinus rhythm with no evidence of ischemia. ASSESSMENT AND PLAN: Ms. Krishnan is a 71-year-old female with a past medical history of metastatic colon cancer to the lung, right adrenal gland, and brain, status post chemoradiation; hemicolectomy and gamma knife surgery to the left occipital brain lesion on 09/05/17, who was admitted to our hospital from to 09/23/17 during which time, she had Legionella pneumonia and developed episodes of catatonia. She was transferred back to [facility] on 09/23/17, and after extensive workup there it is suspected that her catatonia is psychiatric in nature and related to conversion disorder. The patient was discharged from [facility] on 10/05/17 to [facility] in [place]. The patient has again become catatonic and the has brought her to the emergency room for evaluation. Our plans are for observation for the followin. Dehydration: The patient has remained catatonic for approximately 12 hours. Her BUN and creatinine are normal, but she appears overtly clinically dehydrated. I would like to hydrate the patient overnight and monitor. 2. Catatonia: The patient's symptoms are completely consistent with prior episodes of catatonia. Plan to provide supportive care. Continue quetiapine. 3. History of metastatic colon cancer. Plan to continue hydrocortisone per routine. 4. Hypertension: Continue amlodipine. 5. Gastroesophageal reflux disease: Continue omeprazole. 6. Code status is full code. This was reviewed with the patient's at the bedside. TIME SPENT: Approximately 60 minutes was spent on the admission of this patient ; more than half of the time was spent with the patient at the bedside reviewing the events leading up to this hospitalization, performing the physical examination, and reviewing my plan of care. LANETTE RODRIGUEZ NP [id number]/[facility] #: [id number] ROBBY
[2017-10-07] MEDS: Heparin VIAL(*) 5000 UNITS/ML VIAL (FIVE THOUSAND) SUBCUT SCH (21:00)
[2017-10-07] MEDS: Hydrocortisone TAB* 10 MG PO SCH (21:00)
[2017-10-07] MEDS: Senna TAB PO SCH (21:01)
[2017-10-07] MEDS: QUEtiapine TAB* 25 MG PO SCH (21:01)
[2017-10-07] MEDS: NS 0.9% 1000 ML* 1,000 ML IV SCH (22:25)
[2017-10-08] MEDS: Heparin VIAL(*) 5000 UNITS/ML VIAL (FIVE THOUSAND) SUBCUT SCH ×3 (05:51→21:10)
--- NOTE | 2017-10-08 07:27 | ED ---
Kenyatta Wylie Gabriel, scribed for Erasto العلي MD on 10/07/17 at 1400 . Altered Mental Status - HPI Summary HPI Summary: This patient is a 71 year old F BIBA to [facility] accompanied by with a chief complaint of AMS since this morning. The pt is catatonic and non- responsive after being upset with her family for attempting to force her to eat. The [facility] facility where she lives claims that she does this frequently but her insisted she be seen in the ED. She was responsive and talking yesterday. He believes she can hear everything that is being said and acknowledges she goes into these states but he is attempting to find the cause. - History Of Current Complaint Chief Complaint: EDPsychosocial Stated Complaint: UNRESPONSIVE Time Seen by Provider: 10/07/17 13:27 Hx Obtained From: Family/Director Dermatology - Onset/Duration: Still Present Timing: Constant Character: Responsiveness - non responsive Related History: Similar Episode/Diagnosed As: - Allergies/Home Medications Allergies/Adverse Reactions: Allergies Allergy/AdvReac Type Severity Reaction Status Date / Time Pentazocine Allergy Severe ESOPHAGEAL Verified 07/06/17 10:28 [From Talwin Compound] BURNING Propoxyphene [From Darvon] Allergy Severe Anaphylatic Verified 07/06/17 10:28 Shock Aspirin Allergy Nausea Verified 07/06/17 10:28 Bee Venom Allergy Anaphylatic Verified 09/17/17 09:31 Shock Codeine Allergy Nausea Verified 07/06/17 10:28 Oxaliplatin Allergy Unknown Verified 07/06/17 10:28 Reaction Details Home Medications: Home Medications Artificial Tear Solution [Natural Balance Tears 70.01-0.3 %] 1 drop LEFT EYE Q2HR 10/07/17 [History Confirmed 10/07/17] Calcium Carbonate [Calcium 600] 600 mg PO DAILY 10/07/17 [History Confirmed ] Cholecalciferol TAB* [Vitamin D TAB*] 400 unit PO DAILY 10/07/17 [History Confirmed 10/07/17] Hydrocortisone TAB* [Cortef TAB*] 10 mg PO QPM 10/07/17 [History Confirmed 10/07] Hydrocortisone TAB* [Cortef TAB*] 20 mg PO QAM 10/07/17 [History Confirmed 10/07] Magnesium Oxide TAB* [MagOx 400 TAB*] 200 mg PO DAILY 10/07/17 [History Confirmed 10/07/17] Omeprazole CAP* [Prilosec CAP* 20 MG] 40 mg PO DAILY 10/07/17 [History Confirmed 10/07/17] Ondansetron ODT TAB* [Zofran 4 MG Odt TAB*] 8 mg PO Q8H PRN 10/07/17 [History Confirmed 10/07/17] QUEtiapine TAB* [SEROquel TAB*] 50 mg PO BEDTIME 10/07/17 [History Confirmed ] Senna TAB* [Senokot TAB*] 1 tab PO BEDTIME 10/07/17 [History Confirmed 10/07/17] Simvastatin TAB(NF) [Zocor(NF)] 20 mg PO ONCE 10/07/17 [History Confirmed ] amLODIPine TAB* [Norvasc 5 mg TAB*] 5 mg PO DAILY 10/07/17 [History Confirmed ] oxyCODONE TAB* [Roxycodone TAB 5 mg*] 5 mg PO Q4H PRN 10/07/17 [History Confirmed 10/07/17] PMH/Surg Hx/FS Hx/Imm Hx Previously Healthy: No Endocrine/Hematology History: Denies: Hx Diabetes Cardiovascular History: Reports: Hx Coronary Artery Disease, Hx Hypertension - meds in use Denies: Hx Congestive Heart Failure, Hx Pacemaker/ICD GI History: Reports: Hx Gastroesophageal Reflux Disease Denies: Other GI Disorders - COLON CANCER [id number] History: Denies: Hx Dialysis, Hx Renal Disease Musculoskeletal History: Reports: Hx Arthritis Sensory History: Reports: Hx Cataracts - ADAMARIS Denies: Hx Contacts or Glasses, Hx Hearing Aid Opthamlomology History: Reports: Hx Cataracts - ADAMARIS Denies: Hx Contacts or Glasses Neurological History: Reports: Hx Migraine, Hx Nerve Disease - NEUROPATHY BILAT FEET Psychiatric History: Denies: Hx Panic Disorder - Cancer History Cancer Type, Location and Year: colon Hx Chemotherapy: Yes - Surgical History Surgery Procedure, Year, and Place: ACHILLES TENDON SURGERY, partial colectomy [facility], GAMMA KNIFE Hx Anesthesia Reactions: No Infectious Disease History: No Infectious Disease History: Denies: Traveled Outside the [place] in Last 30 Days - Family History Known Family History: Positive: Hypertension - Social History Alcohol Use: None Substance Use Type: Reports: None Smoking Status (MU): Never Smoked Tobacco Review of Systems - ROS Summary Review of Systems Summary: Level 5 Caveat: ROS limited due to the patient being catatonic and no responsive. All Other Systems Reviewed And Are Negative: No Physical Exam - Summary Physical Exam Summary: VITAL SIGNS: Reviewed. GENERAL: ~Patient is an elderly female woman who is not responding to stimuli, she keeps her eyes closed and does not respond but she is blinking. Patient is not in any acute respiratory distress. HEAD AND FACE: No signs of trauma. ~No ecchymosis, hematomas or skull depressions. No sinus tenderness. EYES: PERRLA, EOMI x 2, No injected conjunctiva. EARS: Hearing grossly intact. Ear canals and tympanic membranes are within normal limits. MOUTH: Oropharynx within normal limits. NECK: Supple, trachea is midline, no adenopathy, no JVD, no carotid bruit, no c- spine tenderness, neck with full ROM. CHEST: Symmetric, no tenderness at palpation LUNGS: Clear to auscultation bilaterally. No wheezing or crackles. CVS: Regular rate and rhythm, S1 and S2 present, no murmurs or gallops appreciated. ABDOMEN: Soft, non-tender. No signs of distention. No rebound no guarding, and no masses palpated. Bowel sounds are normal. EXTREMITIES: , no edema, no cyanosis or clubbing. NEURO: No acute neurological or focal deficits. SKIN: Dry and warm Triage Information Reviewed: Yes Vital Signs On Initial Exam: Initial Vitals Temp Pulse Resp BP Pulse Ox 97.9 F 78 14 137/76 93 10/07/17 13:23 10/07/17 13:23 10/07/17 13:23 10/07/17 13:23 10/07/17 13:23 Vital Signs Reviewed: Yes - [place] Coma Scale Coma Scale Total: 7 Diagnostics - Vital Signs Vital Signs Temp Pulse Resp BP Pulse Ox 10/07/17 13:23 97.9 F 78 14 137/76 93 - Laboratory Lab Results: Lab Results 10/07/17 10/07/17 10/07/17 Range/Units 14:35 14:35 14:35 WBC 4.9 (3.5-10.8) 10^3/ul RBC 3.30 L (4.0-5.4) 10^6/ul Hgb 11.0 L (12.0-16.0) g/dl Hct 32 L (35-47) % MCV 98 H (80-97) fL MCH 33 H (27-31) pg MCHC 34 (31-36) g/dl RDW 18 H (10.5-15) % Plt Count 182 (150-450) 10^3/ul MPV 7 L (7.4-10.4) um3 Neut % (Auto) 84.3 H (38-83) % Lymph % (Auto) 5.6 L (25-47) % [place] % (Auto) 9.4 H (1-9) % Eos % (Auto) 0.4 (0-6) % Baso % (Auto) 0.3 (0-2) % Absolute Neuts (auto) 4.1 (1.5-7.7) 10^3/ul Absolute Lymphs (auto) 0.3 L (1.0-4.8) 10^3/ul Absolute Monos (auto) 0.5 (0-0.8) 10^3/ul Absolute Eos (auto) 0 (0-0.6) 10^3/ul Absolute Basos (auto) 0 (0-0.2) 10^3/ul Absolute Nucleated RBC 0 10^3/ul Nucleated RBC % 0.1 Sodium 137 (133-145) mmol/L Potassium 3.3 L (3.5-5.0) mmol/L Chloride 102 (101-111) mmol/L Carbon Dioxide 27 (22-32) mmol/L Anion Gap 8 (2-11) mmol/L BUN 21 (6-24) mg/dL Creatinine 0.47 L (0.51-0.95) mg/dL Est GFR ( Amer) 168.0 (>60) Est GFR (Non-Af Amer) 130.6 (>60) BUN/Creatinine Ratio 44.7 H (8-20) Glucose 91 (70-100) mg/dL Lactic Acid (0.5-2.0) mmol/L Calcium 8.8 (8.6-10.3) mg/dL Magnesium 1.9 (1.9-2.7) mg/dL Total Bilirubin 0.50 (0.2-1.0) mg/dL AST 16 (13-39) U/L ALT 16 (7-52) U/L Alkaline Phosphatase 72 (34-104) U/L Ammonia 38 (16-53) mol/L Troponin I 0.02 (<0.04) ng/mL Total Protein 5.7 L (6.4-8.9) g/dL Albumin 3.1 L (3.2-5.2) g/dL Globulin 2.6 (2-4) g/dL Albumin/Globulin Ratio 1.2 (1-3) TSH 8.13 H (0.34-5.60) mcIU/mL Free T4 1.12 (0.61-1.12) ng/dL Urine Color Urine Appearance Urine pH (5-9) Ur Specific [place] (1.010-1.030) Urine Protein (Negative) Urine Ketones (Negative) Urine Blood (Negative) Urine Nitrate (Negative) Urine Bilirubin (Negative) Urine Urobilinogen (Negative) Ur Leukocyte Esterase (Negative) Urine WBC (Auto) (Absent) Urine RBC (Auto) (Absent) Calcium Oxalate Crystal (Absent) Urine Bacteria (Absent) Urine Glucose (Negative) Urine Ascorbic Acid (Negative) Urine Opiates Screen (None Detect) Ur Barbiturates Screen (None Detect) Ur Phencyclidine Scrn (None Detect) Ur Amphetamines Screen (None Detect) U Benzodiazepines Scrn (None Detect) Urine Cocaine Screen (None Detect) U Cannabinoids Screen (None Detect) 10/07/17 10/07/17 10/07/17 Range/Units 14:35 14:49 14:49 WBC (3.5-10.8) 10^3/ul RBC (4.0-5.4) 10^6/ul Hgb (12.0-16.0) g/dl Hct (35-47) % MCV (80-97) fL MCH (27-31) pg MCHC (31-36) g/dl RDW (10.5-15) % Plt Count (150-450) 10^3/ul MPV (7.4-10.4) um3 Neut % (Auto) (38-83) % Lymph % (Auto) (25-47) % [place] % (Auto) (1-9) % Eos % (Auto) (0-6) % Baso % (Auto) (0-2) % Absolute Neuts (auto) (1.5-7.7) 10^3/ul Absolute Lymphs (auto) (1.0-4.8) 10^3/ul Absolute Monos (auto) (0-0.8) 10^3/ul Absolute Eos (auto) (0-0.6) 10^3/ul Absolute Basos (auto) (0-0.2) 10^3/ul Absolute Nucleated RBC 10^3/ul Nucleated RBC % Sodium (133-145) mmol/L Potassium (3.5-5.0) mmol/L Chloride (101-111) mmol/L Carbon Dioxide (22-32) mmol/L Anion Gap (2-11) mmol/L BUN (6-24) mg/dL Creatinine (0.51-0.95) mg/dL Est GFR ( Amer) (>60) Est GFR (Non-Af Amer) (>60) BUN/Creatinine Ratio (8-20) Glucose (70-100) mg/dL Lactic Acid 0.6 (0.5-2.0) mmol/L Calcium (8.6-10.3) mg/dL Magnesium (1.9-2.7) mg/dL Total Bilirubin (0.2-1.0) mg/dL AST (13-39) U/L ALT (7-52) U/L Alkaline Phosphatase (34-104) U/L Ammonia (16-53) mol/L Troponin I (<0.04) ng/mL Total Protein (6.4-8.9) g/dL Albumin (3.2-5.2) g/dL Globulin (2-4) g/dL Albumin/Globulin Ratio (1-3) TSH (0.34-5.60) mcIU/mL Free T4 (0.61-1.12) ng/dL Urine Color Yellow Urine Appearance Cloudy Urine pH 5.0 (5-9) Ur Specific [place] 1.021 (1.010-1.030) Urine Protein 2+(100 mg/dl) H (Negative) Urine Ketones 1+ H (Negative) Urine Blood 1+ H (Negative) Urine Nitrate Negative (Negative) Urine Bilirubin Negative (Negative) Urine Urobilinogen Negative (Negative) Ur Leukocyte Esterase 1+ H (Negative) Urine WBC (Auto) 3+(>20/hpf) H (Absent) Urine RBC (Auto) 3+(>10/hpf) H (Absent) Calcium Oxalate Crystal Present H (Absent) Urine Bacteria Absent (Absent) Urine Glucose Negative (Negative) Urine Ascorbic Acid * H (Negative) Urine Opiates Screen None detected (None Detect) Ur Barbiturates Screen None detected (None Detect) Ur Phencyclidine Scrn None detected (None Detect) Ur Amphetamines Screen None detected (None Detect) U Benzodiazepines Scrn None detected (None Detect) Urine Cocaine Screen None detected (None Detect) U Cannabinoids Screen None detected (None Detect) Result Diagrams: 10/07/17 14:35 10/07/17 14:35 Lab Statement: Any lab studies that have been ordered have been reviewed, and results considered in the medical decision making process. - EKG 14:48 Cardiac Rate: NL EKG Rhythm: Sinus Rhythm - 80 BPM EKG Interpretation: normal axis, no ST elevations Altered Mental Statu Course/Dx - Course Assessment/Plan: In the ED course an IV access was obtained. Patient was placed in a brewery technician. Patient was started with IV fluids since her states she has not been eating or drinking. Patient has been diagnosed with metastatic colon CA. She has had multiple head CTs and MRIs. She has been seen at [facility] and seen by a neuropsychiatrist were it was determined that she has episodes of catatonia. Today, reports that she acting as when she has this catatonia episode. Labs without any significant abnormality except for. Troponin #1: and Troponin # 2 (4 hours later): EKG shows a NSR at 80 w/o ST elevations. CXR impression: No acute pathology. Patient still lying comfortably in the stretcher. I discussed the case with Dr. Mejia who accepted the patient for admission. - Diagnoses Discharge Diagnoses: Catatonia Discharge - Discharge Plan Condition: Stable Disposition: ADMITTED TO [facility] The documentation as recorded by the Kenyatta lynn Gabriel accurately reflects the service I personally performed and the decisions made by me, Erasto العلي MD.
[2017-10-08] MEDS: NS 0.9% 1000 ML* 1,000 ML IV SCH ×2 (08:12→18:27)
--- NOTE | 2017-10-08 08:47 | PN ---
Progress Note - Progress Note Date of Service: 10/08/17 SOAP: Subjective: [] See H+P for presentation. She is not responsive today, flaccid. Meeting with and three of her children. Acetaminophen (Tylenol Tab*) 650 mg PO Q6H PRN PRN Reason: PAIN Amlodipine Besylate (Norvasc Tab*) 5 mg PO DAILY [facility] Ascorbic Acid (Vitamin C Tab*) 1,000 mg PO DAILY [facility] Cholecalciferol (Vitamin D Tab*) 400 unit PO DAILY [facility] Cyanocobalamin (Vitamin B12 Tab*) 1,000 mcg PO MoWeFr@0900 [facility] Heparin Sodium (Porcine) (Heparin Flush Picc/Ml/Cvc(*)) 1 ml FLUSH 0600,1800 [facility] PRN Reason: Protocol Last Admin: 10/08/17 05:51 Dose: 1 ml Heparin Sodium (Porcine) (Heparin Vial(*)) 5,000 units SUBCUT Q8HR [facility] Last Admin: 10/08/17 05:51 Dose: 5,000 units Hydrocortisone (Cortef Tab*) 10 mg PO QPM [facility] Last Admin: 10/07/17 21:00 Dose: Not Given Hydrocortisone (Cortef Tab*) 20 mg PO QAM [facility] Sodium Chloride (Ns 0.9% 1000 Ml*) 1,000 mls @ 100 mls/hr IV PER RATE [facility] Last Admin: 10/08/17 08:12 Dose: 100 mls/hr Magnesium Oxide (Magox 400 Tab*) 200 mg PO DAILY [facility] Omeprazole (Prilosec Cap*) 40 mg PO DAILY [facility] Ondansetron HCl (Zofran Odt Tab*) 8 mg PO Q8H PRN PRN Reason: EMESIS Oxycodone HCl (Roxycodone Tab*) 5 mg PO Q4H PRN PRN Reason: PAIN Prochlorperazine (Compazine Tab*) 10 mg PO Q6H PRN PRN Reason: NAUSEA Quetiapine Fumarate (Seroquel Tab*) 50 mg PO BEDTIME [facility] Last Admin: 10/07/17 21:01 Dose: Not Given Senna (Senokot Tab*) 1 tab PO BEDTIME [facility] Last Admin: 10/07/17 21:01 Dose: Not Given Objective: [] Vital Signs Temp Pulse Resp BP Pulse Ox 98.8 F 94 17 153/87 95 10/08/17 03:30 10/08/17 03:30 10/08/17 03:30 10/08/17 03:30 10/08/17 03:30 HEENT - Mucosa moist, no thrush. 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 Symptoms started several weeks ago, one week past gamma knife and in setting of pneumonia. Pneumonia resolved but mental status changes have persisted. She has had extensive evaluation by neurology, psychiatry, both at [facility] and at [facility]. Current diagnosis is conversion disorder. Extensive family discussion, cortez points were: - Prognosis from cancer in best setting is measured in months with treatment. P - I do not know prognosis from conversion disorder and probability of improvement. Has been progressive over past several weeks. - At this time, family would like to continue to care for her and for her to have nutrition, even if she cannot eat on her own. - If that is the goal, PEG tube and feeds is the viable medical option. terminal operations manager IVF or IV nutrition is not realistic. - She may or may not be a candidate for home hospice with a PEG and tube feeds. - Given prognosis, another reasonable options is hospice and forgo life extending therapy including fluids and nutrition. She would quickly. In that setting the residence may be an option. - They would like fourth child in on Tuesday to make a decision. Plan: []1. Will continue IVF over weekend, feed by mouth if she improves. 2. Continue current medication, including Seroquel over weekend. 3. Hospice consultation on Tuesday, GI if they decide on PEG. 4. Consultation to psychiatry for medication management.
[2017-10-08] MEDS: amLODIPine TAB* 5 MG PO SCH (11:51)
[2017-10-08] MEDS: Hydrocortisone TAB* 10 MG PO SCH ×2 (11:52→18:56)
[2017-10-08] MEDS: Cholecalciferol TAB* 400 UNIT PO SCH (11:52)
[2017-10-08] MEDS: Omeprazole CAP* 20 MG PO SCH (11:52)
[2017-10-08] MEDS: Magnesium Oxide TAB* 400 MG PO SCH (11:52)
[2017-10-08] MEDS: Ascorbic Acid TAB* 500 MG PO SCH (11:52)
--- NOTE | 2017-10-08 13:09 | CONSULT ---
Identification - Patient Identification Reason for Psychiatric Consultation: Incapacitating Symptoms -: Patient is a 71 year old, F admitted on 10/07/17. - MHU Identification Employment Status: Disabled Hx Psychiatric Hospitalization: No History - Objective HPI: Psychiatry is once again asked to see this 71 y.o. 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 For a more complete history, please refer to the consultation report dictated on 09/19/17 by this clinician. During that hospitalization we continued low dose lorazepam for these episodes and added 50mg of nightly quetiapine. There was a concern that the symptoms, typified by periods of unresponsiveness and bilateral extension of her upper extremities, may have been secondary to some type of paraneoplastic syndrome and she was thereafter transferred to [facility] in [place], [place]. Today, the patient's , Ravi, is present and states that Katiuska had an extensive workup, including a steroid taper, there but was discharged earlier this week to a retirement in [place], [place]. They felt the symptoms represented Conversion DO and kept her on nightly quetiapine 50mg but weened her off lorazepam. She had been doing alright until , when the family attempted to bring her home for the Holiday. She became essentially uncommunicative with waxy flexibility and choreoathetoid movements in her upper extremities. On exam the patient does not make eye contact or respond verbally. Nursing staff indicates that she is not accepting any PO intake. is agreeable with resumption of lorazepam therapy. Exam Appearance: Well Developed/Nourished Hygiene: Normal Grooming: Fairly Well Kept Psychomotor Activities: Abnormal-Increased Exhibits Abnormal Movement: Yes Attitude and Relatedness: Withdrawn Eye Contact: Poor - Speech Quality: Unpressured Latencies: Long Quantity: Terse Observed Affect: Unvariable Affect Consistent with: Euthymia Patient's Thought Process: Impoverished Thought Content: No Passive Wish, No Suicidal Planning, No Homicidal Ideation, No Paranoid Ideation Experiencing Hallucinations: No, Sensorium is Clear Type of Hallucinations: Visual: No, Auditory: No, Command: No Level of Consciousness: Obtunded Orientation: No Intact, No Orientated to Time, No Orientated to Place, No Orientated to Person Impulse Control: Poor Insight and Judgement: Impaired Impression - Impression Clinical Impression: 71 y.o. , white female with a history of metastatic cancer with brain involvement presenting with several weeks of catatonic behavior that has worsened since taken off lorazepam therapy at outside hospital. Inpatient DSM-IV Dx: Catatonia of Malignancy Merits Inpatient Hospitalization: No Plan - Treatment Plan Treatment Plan: We recommend keeping her on quetiapine and starting a trial of lorazepam 1mg IV q6h. Once improved we should consider scheduled long-acting oral benzodiazepine , such as diazepam for preventative maintenance. Psychiatry will continue to follow. Continued Medication Management: Start Medication Medications: Current Medications Acetaminophen (Tylenol Tab*) 650 mg PO Q6H PRN PRN Reason: PAIN Amlodipine Besylate (Norvasc Tab*) 5 mg PO DAILY [facility] Last Admin: 10/08/17 11:51 Dose: Not Given Ascorbic Acid (Vitamin C Tab*) 1,000 mg PO DAILY [facility] Last Admin: 10/08/17 11:52 Dose: Not Given Cholecalciferol (Vitamin D Tab*) 400 unit PO DAILY [facility] Last Admin: 10/08/17 11:52 Dose: Not Given Cyanocobalamin (Vitamin B12 Tab*) 1,000 mcg PO MoWeFr@0900 [facility] Heparin Sodium (Porcine) (Heparin Flush Picc/Ml/Cvc(*)) 1 ml FLUSH 0600,1800 [facility] PRN Reason: Protocol Last Admin: 10/08/17 05:51 Dose: 1 ml Heparin Sodium (Porcine) (Heparin Vial(*)) 5,000 units SUBCUT Q8HR [facility] Last Admin: 10/08/17 05:51 Dose: 5,000 units Hydrocortisone (Cortef Tab*) 10 mg PO QPM [facility] Last Admin: 10/07/17 21:00 Dose: Not Given Hydrocortisone (Cortef Tab*) 20 mg PO QAM [facility] Last Admin: 10/08/17 11:52 Dose: Not Given Sodium Chloride (Ns 0.9% 1000 Ml*) 1,000 mls @ 100 mls/hr IV PER RATE [facility] Last Admin: 10/08/17 08:12 Dose: 100 mls/hr Magnesium Oxide (Magox 400 Tab*) 200 mg PO DAILY [facility] Last Admin: 10/08/17 11:52 Dose: Not Given Omeprazole (Prilosec Cap*) 40 mg PO DAILY [facility] Last Admin: 10/08/17 11:52 Dose: Not Given Ondansetron HCl (Zofran Odt Tab*) 8 mg PO Q8H PRN PRN Reason: EMESIS Oxycodone HCl (Roxycodone Tab*) 5 mg PO Q4H PRN PRN Reason: PAIN Prochlorperazine (Compazine Tab*) 10 mg PO Q6H PRN PRN Reason: NAUSEA Quetiapine Fumarate (Seroquel Tab*) 50 mg PO BEDTIME [facility] Last Admin: 10/07/17 21:01 Dose: Not Given Senna (Senokot Tab*) 1 tab PO BEDTIME [facility] Last Admin: 10/07/17 21:01 Dose: Not Given
[2017-10-08] MEDS: LORazepam INJ* 2 MG/ML 1 ML VIAL IV PUSH PRN (13:24)
[2017-10-08] MEDS ORDERED: Hydrocortisone TAB* 5 MG PO SCH (18:16)
[2017-10-08] MEDS: guaiFENesin LIQ* 100 MG/5 ML UDC PO PRN (18:23)
[2017-10-08] MEDS: Hydrocortisone TAB* 5 MG PO SCH (18:24)
[2017-10-08] MEDS: Acetaminophen TAB* 325 MG PO PRN (19:17)
[2017-10-08] MEDS: Senna TAB PO SCH (21:10)
[2017-10-08] MEDS: QUEtiapine TAB* 25 MG PO SCH (21:10)
[2017-10-09] MEDS: NS 0.9% 1000 ML* 1,000 ML IV SCH ×2 (04:29→14:26)
[2017-10-09] MEDS: guaiFENesin LIQ* 100 MG/5 ML UDC PO PRN ×2 (05:24→11:05)
[2017-10-09] MEDS: Heparin VIAL(*) 5000 UNITS/ML VIAL (FIVE THOUSAND) SUBCUT SCH ×3 (05:24→21:15)
[2017-10-09] MEDS ORDERED: Sodium Phosphate ADULT ENEMA* 118 ml bottle PR PRN (08:35)
--- NOTE | 2017-10-09 10:02 | PN ---
Subjective Date of Service: 10/09/17 Interval History: Pt is feeling better. She just had a large BM. Nursing states the stool was quite hard. The patient denies any abdominal pain, SOB or chest pain. She states she is hungry and requests cheerios. Objective Active Medications: Acetaminophen (Tylenol Tab*) 650 mg PO Q6H PRN PRN Reason: PAIN Last Admin: 10/08/17 19:17 Dose: 650 mg Amlodipine Besylate (Norvasc Tab*) 5 mg PO DAILY [facility] Last Admin: 10/08/17 11:51 Dose: Not Given Ascorbic Acid (Vitamin C Tab*) 1,000 mg PO DAILY [facility] Last Admin: 10/08/17 11:52 Dose: Not Given Cholecalciferol (Vitamin D Tab*) 400 unit PO DAILY [facility] Last Admin: 10/08/17 11:52 Dose: Not Given Cyanocobalamin (Vitamin B12 Tab*) 1,000 mcg PO MoWeFr@0900 [facility] Guaifenesin (Robitussin*) 15 ml PO Q6H PRN PRN Reason: COUGH Last Admin: 10/09/17 05:24 Dose: 15 ml Heparin Sodium (Porcine) (Heparin Flush Picc/Ml/Cvc(*)) 1 ml FLUSH 0600,1800 [facility] PRN Reason: Protocol Last Admin: 10/09/17 05:26 Dose: Not Given Heparin Sodium (Porcine) (Heparin Vial(*)) 5,000 units SUBCUT Q8HR [facility] Last Admin: 10/09/17 05:24 Dose: 5,000 units Hydrocortisone (Cortef Tab*) 20 mg PO QAM [facility] Last Admin: 10/08/17 11:52 Dose: Not Given Hydrocortisone (Cortef Tab*) 5 mg PO 1800 [facility] Last Admin: 10/08/17 18:24 Dose: 5 mg Sodium Chloride (Ns 0.9% 1000 Ml*) 1,000 mls @ 100 mls/hr IV PER RATE [facility] Last Admin: 10/09/17 04:29 Dose: 100 mls/hr Lorazepam (Ativan Inj*) 1 mg IV PUSH Q6H PRN PRN Reason: catatonia Last Admin: 10/08/17 13:24 Dose: 1 mg Magnesium Oxide (Magox 400 Tab*) 200 mg PO DAILY [facility] Last Admin: 10/08/17 11:52 Dose: Not Given Omeprazole (Prilosec Cap*) 40 mg PO DAILY [facility] Last Admin: 10/08/17 11:52 Dose: Not Given Ondansetron HCl (Zofran Odt Tab*) 8 mg PO Q8H PRN PRN Reason: EMESIS Oxycodone HCl (Roxycodone Tab*) 5 mg PO Q4H PRN PRN Reason: PAIN Prochlorperazine (Compazine Tab*) 10 mg PO Q6H PRN PRN Reason: NAUSEA Quetiapine Fumarate (Seroquel Tab*) 50 mg PO BEDTIME [facility] Last Admin: 10/08/17 21:10 Dose: 50 mg Senna (Senokot Tab*) 1 tab PO BEDTIME [facility] Last Admin: 10/08/17 21:10 Dose: 1 tab Sodium Biphosphate/Sodium Phosphate (Fleet Enema*) 1 bottle [place] DAILY PRN PRN Reason: CONSTIPATION Last Admin: 10/09/17 08:55 Dose: 1 bottle Vital Signs 10/08/17 10/08/17 10/08/17 11:41 13:24 14:00 Temperature 97.4 F Pulse Rate 101 Respiratory 16 18 16 Rate Blood Pressure 138/79 (mmHg) O2 Sat by Pulse 98 Oximetry 10/08/17 10/08/17 10/08/17 16:39 16:55 19:14 Temperature 98.6 F 101.3 F Pulse Rate 96 106 Respiratory 16 18 18 Rate Blood Pressure 138/96 129/81 (mmHg) O2 Sat by Pulse 96 95 Oximetry 10/08/17 10/08/17 10/09/17 20:00 23:50 04:51 Temperature 98.3 F 98.0 F Pulse Rate 91 86 Respiratory 16 16 16 Rate Blood Pressure 141/92 130/63 (mmHg) O2 Sat by Pulse 94 Oximetry 10/09/17 10/09/17 07:39 08:00 Temperature 98.5 F Pulse Rate 86 Respiratory 16 16 Rate Blood Pressure 130/62 (mmHg) O2 Sat by Pulse 94 Oximetry Oxygen Devices in Use Now: None Appearance: Elderly female sitting up in bed, awake, alert, oriented to place and situation, NAD Eyes: No Scleral Icterus Ears/Nose/Mouth/Throat: Mucous Membranes Moist Respiratory: Symmetrical Chest Expansion and Respiratory Effort, Clear to Auscultation Cardiovascular: NL Sounds; No Murmurs; No JVD, RRR, No Edema Abdominal: NL Sounds; No Tenderness; No Distention Extremities: No Clubbing, Cyanosis Skin: No Rash or Ulcers, No Nodules or Sclerosis Neurological: Alert and Oriented x 3 Result Diagrams: 10/07/17 14:35 10/07/17 14:35 Additional Lab and Data: Lab Results 10/07/17 10/07/17 10/07/17 Range/Units 14:35 14:35 14:35 WBC 4.9 (3.5-10.8) 10^3/ul RBC 3.30 L (4.0-5.4) 10^6/ul Hgb 11.0 L (12.0-16.0) g/dl Hct 32 L (35-47) % MCV 98 H (80-97) fL MCH 33 H (27-31) pg MCHC 34 (31-36) g/dl RDW 18 H (10.5-15) % Plt Count 182 (150-450) 10^3/ul MPV 7 L (7.4-10.4) um3 Neut % (Auto) 84.3 H (38-83) % Lymph % (Auto) 5.6 L (25-47) % [place] % (Auto) 9.4 H (1-9) % Eos % (Auto) 0.4 (0-6) % Baso % (Auto) 0.3 (0-2) % Absolute Neuts (auto) 4.1 (1.5-7.7) 10^3/ul Absolute Lymphs (auto) 0.3 L (1.0-4.8) 10^3/ul Absolute Monos (auto) 0.5 (0-0.8) 10^3/ul Absolute Eos (auto) 0 (0-0.6) 10^3/ul Absolute Basos (auto) 0 (0-0.2) 10^3/ul Absolute Nucleated RBC 0 10^3/ul Nucleated RBC % 0.1 Sodium 137 (133-145) mmol/L Potassium 3.3 L (3.5-5.0) mmol/L Chloride 102 (101-111) mmol/L Carbon Dioxide 27 (22-32) mmol/L Anion Gap 8 (2-11) mmol/L BUN 21 (6-24) mg/dL Creatinine 0.47 L (0.51-0.95) mg/dL Est GFR ( Amer) 168.0 (>60) Est GFR (Non-Af Amer) 130.6 (>60) BUN/Creatinine Ratio 44.7 H (8-20) Glucose 91 (70-100) mg/dL Lactic Acid (0.5-2.0) mmol/L Calcium 8.8 (8.6-10.3) mg/dL Magnesium 1.9 (1.9-2.7) mg/dL Total Bilirubin 0.50 (0.2-1.0) mg/dL AST 16 (13-39) U/L ALT 16 (7-52) U/L Alkaline Phosphatase 72 (34-104) U/L Ammonia 38 (16-53) mol/L Troponin I 0.02 (<0.04) ng/mL Total Protein 5.7 L (6.4-8.9) g/dL Albumin 3.1 L (3.2-5.2) g/dL Globulin 2.6 (2-4) g/dL Albumin/Globulin Ratio 1.2 (1-3) TSH 8.13 H (0.34-5.60) mcIU/mL Free T4 1.12 (0.61-1.12) ng/dL Urine Color Urine Appearance Urine pH (5-9) Ur Specific Ringling (1.010-1.030) Urine Protein (Negative) Urine Ketones (Negative) Urine Blood (Negative) Urine Nitrate (Negative) Urine Bilirubin (Negative) Urine Urobilinogen (Negative) Ur Leukocyte Esterase (Negative) Urine WBC (Auto) (Absent) Urine RBC (Auto) (Absent) Calcium Oxalate Crystal (Absent) Urine Bacteria (Absent) Urine Glucose (Negative) Urine Ascorbic Acid (Negative) Urine Opiates Screen (None Detect) Ur Barbiturates Screen (None Detect) Ur Phencyclidine Scrn (None Detect) Ur Amphetamines Screen (None Detect) U Benzodiazepines Scrn (None Detect) Urine Cocaine Screen (None Detect) U Cannabinoids Screen (None Detect) 10/07/17 10/07/17 10/07/17 Range/Units 14:35 14:49 14:49 WBC (3.5-10.8) 10^3/ul RBC (4.0-5.4) 10^6/ul Hgb (12.0-16.0) g/dl Hct (35-47) % MCV (80-97) fL MCH (27-31) pg MCHC (31-36) g/dl RDW (10.5-15) % Plt Count (150-450) 10^3/ul MPV (7.4-10.4) um3 Neut % (Auto) (38-83) % Lymph % (Auto) (25-47) % [place] % (Auto) (1-9) % Eos % (Auto) (0-6) % Baso % (Auto) (0-2) % Absolute Neuts (auto) (1.5-7.7) 10^3/ul Absolute Lymphs (auto) (1.0-4.8) 10^3/ul Absolute Monos (auto) (0-0.8) 10^3/ul Absolute Eos (auto) (0-0.6) 10^3/ul Absolute Basos (auto) (0-0.2) 10^3/ul Absolute Nucleated RBC 10^3/ul Nucleated RBC % Sodium (133-145) mmol/L Potassium (3.5-5.0) mmol/L Chloride (101-111) mmol/L Carbon Dioxide (22-32) mmol/L Anion Gap (2-11) mmol/L BUN (6-24) mg/dL Creatinine (0.51-0.95) mg/dL Est GFR ( Amer) (>60) Est GFR (Non-Af Amer) (>60) BUN/Creatinine Ratio (8-20) Glucose (70-100) mg/dL Lactic Acid 0.6 (0.5-2.0) mmol/L Calcium (8.6-10.3) mg/dL Magnesium (1.9-2.7) mg/dL Total Bilirubin (0.2-1.0) mg/dL AST (13-39) U/L ALT (7-52) U/L Alkaline Phosphatase (34-104) U/L Ammonia (16-53) mol/L Troponin I (<0.04) ng/mL Total Protein (6.4-8.9) g/dL Albumin (3.2-5.2) g/dL Globulin (2-4) g/dL Albumin/Globulin Ratio (1-3) TSH (0.34-5.60) mcIU/mL Free T4 (0.61-1.12) ng/dL Urine Color Yellow Urine Appearance Cloudy Urine pH 5.0 (5-9) Ur Specific [place] 1.021 (1.010-1.030) Urine Protein 2+(100 mg/dl) H (Negative) Urine Ketones 1+ H (Negative) Urine Blood 1+ H (Negative) Urine Nitrate Negative (Negative) Urine Bilirubin Negative (Negative) Urine Urobilinogen Negative (Negative) Ur Leukocyte Esterase 1+ H (Negative) Urine WBC (Auto) 3+(>20/hpf) H (Absent) Urine RBC (Auto) 3+(>10/hpf) H (Absent) Calcium Oxalate Crystal Present H (Absent) Urine Bacteria Absent (Absent) Urine Glucose Negative (Negative) Urine Ascorbic Acid * H (Negative) Urine Opiates Screen None detected (None Detect) Ur Barbiturates Screen None detected (None Detect) Ur Phencyclidine Scrn None detected (None Detect) Ur Amphetamines Screen None detected (None Detect) U Benzodiazepines Scrn None detected (None Detect) Urine Cocaine Screen None detected (None Detect) U Cannabinoids Screen None detected (None Detect) Microbiology and Other Data: Microbiology 10/07/17 20:10 Nasal Screen MRSA (PCR)([facility]AS) - Final Nasal Mrsa Negative Assess/Plan/Problems-Billing Ms Krishnan is a 71 yo F with a h/o metastatic colon cancer with brain metastases, HTN and episodes of catatonia of unclear cause was brought to the ER for evaluation of another episode of unresponsiveness. - Patient Problems (1) Catatonia Current Visit: Yes Status: Acute Code(s): F06.1 - CATATONIC DISORDER DUE TO KNOWN PHYSIOLOGICAL CONDITION SNOMED Code(s): 404899634 Comment: The patient is much improved today after receiving a single dose of ativan 1mg IV yesterday afternoon. She is awake, alert and interacting appropriately. She stated she was hungry and would like to eat breakfast. Psych to continue to follow. Family discussion held with Dr. Bello yesterday and further discussion to occur tomorrow. (2) Hypertension Current Visit: Yes Status: Acute Code(s): I10 - ESSENTIAL (PRIMARY) HYPERTENSION SNOMED Code(s): 63509792 Comment: BP at times mildly elevated but she had not been receiving her usual home medicaitons. Continue to monitor. (3) Carcinoma of cecum Current Visit: Yes Status: Acute Priority: High Code(s): C18.0 - MALIGNANT NEOPLASM OF CECUM SNOMED Code(s): 778952725 Comment: Management per oncology. (4) DVT prophylaxis Current Visit: Yes Status: Acute Code(s): NFB4818 - SNOMED Code(s): 183807979 Comment: SQ heparin (5) Full code status Current Visit: Yes Status: Acute Code(s): Z78.9 - OTHER SPECIFIED HEALTH STATUS SNOMED Code(s): 226807156
[2017-10-09] MEDS: Magnesium Oxide TAB* 400 MG PO SCH (11:06)
[2017-10-09] MEDS: Cholecalciferol TAB* 400 UNIT PO SCH (11:06)
[2017-10-09] MEDS: amLODIPine TAB* 5 MG PO SCH (11:07)
[2017-10-09] MEDS: Ascorbic Acid TAB* 500 MG PO SCH (11:07)
[2017-10-09] MEDS: Omeprazole CAP* 20 MG PO SCH (11:12)
[2017-10-09] MEDS: Hydrocortisone TAB* 10 MG PO SCH (13:22)
--- NOTE | 2017-10-09 13:46 | CONSULT ---
Identification - Patient Identification Reason for Psychiatric Consultation: Incapacitating Symptoms -: Patient is a 71 year old, F admitted on 10/07/17. - MHU Identification Employment Status: Disabled Hx Psychiatric Hospitalization: No History - Objective HPI: Heather is awake and alert today, and has been so since shortly after receiving one dose of 1mg lorazepam yesterday. She is calm and cooperative and seems surprised to hear that she was catatonic yesterday. I spoke with the patient about the next step in treatment, which I believe should be a scheduled long- acting benzodiazepine such as diazepam, and she is agreeable. I spoke with her , Ravi, by phone and he is similarly in agreement. Exam Appearance: Well Developed/Nourished Hygiene: Normal Grooming: Fairly Well Kept Psychomotor Activities: Normal Exhibits Abnormal Movement: No Attitude and Relatedness: Cooperative Eye Contact: Good - Speech Quality: Unpressured Latencies: Normal Quantity: Appropriate Patient's Decription of Mood: "Good" Observed Affect: Good Affect Consistent with: Euthymia Patient's Thought Process: Coherent, Impoverished Thought Content: No Passive Wish, No Suicidal Planning, No Homicidal Ideation, No Paranoid Ideation Experiencing Hallucinations: No, Sensorium is Clear Type of Hallucinations: Visual: No, Auditory: No, Command: No Level of Consciousness: Alert Orientation: Yes Intact, Yes Orientated to Time, Yes Orientated to Place, Yes Orientated to Person Impulse Control: Intact Insight and Judgement: Good Impression - Impression Clinical Impression: 71 y.o. , white female with a history of metastatic cancer with brain involvement presenting with several weeks of catatonic behavior that has worsened since taken off lorazepam therapy at outside hospital. Inpatient DSM-IV Dx: Catatonia of Malignancy Merits Inpatient Hospitalization: No Plan - Treatment Plan Treatment Plan: Patient much improved on just one dose of lorazepam. We'd like to prevent recurrence of these episodes and will will start a trial of long-acting benzo, diazepam 2.5mg PO BID. Continue quetiapine 50mg PO qhs and prn lorazepam for breakthrough symptoms. Psychiatry will continue to follow. Continued Medication Management: Start Medication Medications: Current Medications Acetaminophen (Tylenol Tab*) 650 mg PO Q6H PRN PRN Reason: PAIN Last Admin: 10/08/17 19:17 Dose: 650 mg Amlodipine Besylate (Norvasc Tab*) 5 mg PO DAILY [facility] Last Admin: 10/09/17 11:07 Dose: 5 mg Ascorbic Acid (Vitamin C Tab*) 1,000 mg PO DAILY [facility] Last Admin: 10/09/17 11:07 Dose: 1,000 mg Cholecalciferol (Vitamin D Tab*) 400 unit PO DAILY [facility] Last Admin: 10/09/17 11:06 Dose: 400 unit Cyanocobalamin (Vitamin B12 Tab*) 1,000 mcg PO MoWeFr@0900 [facility] Diazepam (Valium Tab(*)) 2.5 mg PO BID [facility] Guaifenesin (Robitussin*) 15 ml PO Q6H PRN PRN Reason: COUGH Last Admin: 10/09/17 11:05 Dose: 15 ml Heparin Sodium (Porcine) (Heparin Flush Picc/Ml/Cvc(*)) 1 ml FLUSH 0600,1800 [facility] PRN Reason: Protocol Last Admin: 10/09/17 05:26 Dose: Not Given Heparin Sodium (Porcine) (Heparin Vial(*)) 5,000 units SUBCUT Q8HR [facility] Last Admin: 10/09/17 05:24 Dose: 5,000 units Hydrocortisone (Cortef Tab*) 20 mg PO QAM [facility] Last Admin: 10/09/17 13:22 Dose: Not Given Hydrocortisone (Cortef Tab*) 5 mg PO 1800 [facility] Last Admin: 10/08/17 18:24 Dose: 5 mg Sodium Chloride (Ns 0.9% 1000 Ml*) 1,000 mls @ 100 mls/hr IV PER RATE [facility] Last Admin: 10/09/17 04:29 Dose: 100 mls/hr Lorazepam (Ativan Inj*) 1 mg IV PUSH Q6H PRN PRN Reason: catatonia Last Admin: 10/08/17 13:24 Dose: 1 mg Magnesium Oxide (Magox 400 Tab*) 200 mg PO DAILY [facility] Last Admin: 10/09/17 11:06 Dose: 200 mg Omeprazole (Prilosec Cap*) 40 mg PO DAILY [facility] Last Admin: 10/09/17 11:12 Dose: 40 mg Ondansetron HCl (Zofran Odt Tab*) 8 mg PO Q8H PRN PRN Reason: EMESIS Oxycodone HCl (Roxycodone Tab*) 5 mg PO Q4H PRN PRN Reason: PAIN Prochlorperazine (Compazine Tab*) 10 mg PO Q6H PRN PRN Reason: NAUSEA Quetiapine Fumarate (Seroquel Tab*) 50 mg PO BEDTIME [facility] Last Admin: 10/08/17 21:10 Dose: 50 mg Senna (Senokot Tab*) 1 tab PO BEDTIME [facility] Last Admin: 10/08/17 21:10 Dose: 1 tab Sodium Biphosphate/Sodium Phosphate (Fleet Enema*) 1 bottle [place] DAILY PRN PRN Reason: CONSTIPATION Last Admin: 10/09/17 08:55 Dose: 1 bottle
[2017-10-09] MEDS: Hydrocortisone TAB* 5 MG PO SCH (16:30)
[2017-10-09] MEDS: Acetaminophen TAB* 325 MG PO PRN (18:18)
[2017-10-09] MEDS: LORazepam INJ* 2 MG/ML 1 ML VIAL IV PUSH PRN (21:14)
[2017-10-09] MEDS: Diazepam TAB(*) 5 MG PO SCH (22:02)
[2017-10-09] MEDS: Senna TAB PO SCH (22:02)
[2017-10-09] MEDS: QUEtiapine TAB* 25 MG PO SCH (22:02)
[2017-10-10] MEDS: NS 0.9% 1000 ML* 1,000 ML IV SCH ×3 (00:34→20:23)
[2017-10-10] MEDS: Heparin VIAL(*) 5000 UNITS/ML VIAL (FIVE THOUSAND) SUBCUT SCH ×4 (04:58→23:25)
[2017-10-10 06:35] LABS: Hematocrit 32 % (35-47); Hemoglobin 10.9 g/dl (12.0-16.0); Mean Corpuscular HGB Conc 34 g/dl (31-36); Mean Corpuscular Hemoglobin 33 pg (27-31); Mean Corpuscular Volume 97 fL (80-97); Mean Platelet Volume 6 um3 (7.4-10.4); Red Blood Count 3.31 10^6/ul (4.0-5.4); Red Cell Distribution Width 18 % (10.5-15); White Blood Count 7.6 10^3/ul (3.5-10.8)
[2017-10-10 06:46] LABS: BUN/Creatinine Ratio 9.5 (8-20); Blood Urea Nitrogen 4 mg/dL (6-24); CO2 Carbon Dioxide 28 mmol/L (22-32); Calcium 8.4 mg/dL (8.6-10.3); Chloride 102 mmol/L (101-111); EGFR African American 191.3 (>60); EGFR Non-African American 148.7 (>60); Glucose 84 mg/dL (70-100); Sodium 137 mmol/L (133-145)
[2017-10-10 06:51] LABS: Anion Gap 7 mmol/L (2-11)
[2017-10-10] MEDS: Diazepam TAB(*) 5 MG PO SCH ×2 (08:44→20:24)
[2017-10-10] MEDS: oxyCODONE TAB* 5 MG TAB PO PRN (08:45)
[2017-10-10] MEDS: Omeprazole CAP* 20 MG PO SCH (08:46)
[2017-10-10] MEDS: amLODIPine TAB* 5 MG PO SCH (08:46)
[2017-10-10] MEDS: Hydrocortisone TAB* 10 MG PO SCH (08:47)
[2017-10-10] MEDS: Magnesium Oxide TAB* 400 MG PO SCH (08:50)
[2017-10-10] MEDS: Cyanocobalamin TAB* 500 MCG PO SCH (08:50)
[2017-10-10] MEDS: Cholecalciferol TAB* 400 UNIT PO SCH (08:50)
[2017-10-10] MEDS: Ascorbic Acid TAB* 500 MG PO SCH (08:50)
[2017-10-10] MEDS ORDERED: Magnesium Sulfate IV* 3 GM in NS 0.9% 100 ML* 100 ML IVPB ONE (09:47)
[2017-10-10] MEDS: KCL 10 MEQ/50 ML IVPREMIX* 10 MEQ/50 ML BAG IV SCH ×4 (10:27→17:24)
--- NOTE | 2017-10-10 11:29 | PN ---
Progress Note - Progress Note Date of Service: 10/10/17 SOAP: Subjective: []Feeling well today. Has a cough though denies SOB. Denies pain. Says she has been sleeping well. Generally aware of situation, though needs some reinforcement. Family aware of hospice consult and have many questions. Medications: Acetaminophen (Tylenol Tab*) 650 mg PO Q6H PRN PRN Reason: PAIN Last Admin: 10/09/17 18:18 Dose: 650 mg Amlodipine Besylate (Norvasc Tab*) 5 mg PO DAILY [facility] Last Admin: 10/10/17 08:46 Dose: 5 mg Ascorbic Acid (Vitamin C Tab*) 1,000 mg PO DAILY [facility] Last Admin: 10/10/17 08:50 Dose: 1,000 mg Cholecalciferol (Vitamin D Tab*) 400 unit PO DAILY [facility] Last Admin: 10/10/17 08:50 Dose: 400 unit Cyanocobalamin (Vitamin B12 Tab*) 1,000 mcg PO MoWeFr@0900 [facility] Last Admin: 10/10/17 08:50 Dose: 1,000 mcg Diazepam (Valium Tab(*)) 2.5 mg PO BID [facility] Last Admin: 10/10/17 08:44 Dose: 2.5 mg Guaifenesin (Robitussin*) 15 ml PO Q6H PRN PRN Reason: COUGH Last Admin: 10/09/17 11:05 Dose: 15 ml Heparin Sodium (Porcine) (Heparin Flush Picc/Ml/Cvc(*)) 1 ml FLUSH 0600,1800 [facility] PRN Reason: Protocol Last Admin: 10/10/17 04:57 Dose: Not Given Heparin Sodium (Porcine) (Heparin Vial(*)) 5,000 units SUBCUT Q8HR [facility] Last Admin: 10/10/17 05:00 Dose: 5,000 units Hydrocortisone (Cortef Tab*) 20 mg PO QAM [facility] Last Admin: 10/10/17 08:47 Dose: 20 mg Hydrocortisone (Cortef Tab*) 5 mg PO 1800 [facility] Last Admin: 10/09/17 16:30 Dose: Not Given Sodium Chloride (Ns 0.9% 1000 Ml*) 1,000 mls @ 100 mls/hr IV PER RATE [facility] Last Admin: 10/10/17 10:30 Dose: 100 mls/hr Magnesium Sulfate 3 gm/ Sodium (Chloride) 106 mls @ 53 mls/hr IVPB ONCE ONE Stop: 10/10/17 11:46 Potassium Chloride (Potassium Chloride 10 Meq/50 Ml Ivpremix*) 10 meq in 50 mls @ 50 mls/hr IV Q1H [facility] Stop: 10/10/17 13:59 Last Admin: 10/10/17 10:27 Dose: 50 mls/hr Lorazepam (Ativan Inj*) 1 mg IV PUSH Q6H PRN PRN Reason: catatonia Last Admin: 10/09/17 21:14 Dose: 1 mg Magnesium Oxide (Magox 400 Tab*) 200 mg PO DAILY [facility] Last Admin: 10/10/17 08:50 Dose: 200 mg Omeprazole (Prilosec Cap*) 40 mg PO DAILY [facility] Last Admin: 10/10/17 08:46 Dose: 40 mg Ondansetron HCl (Zofran Odt Tab*) 8 mg PO Q8H PRN PRN Reason: EMESIS Oxycodone HCl (Roxycodone Tab*) 5 mg PO Q4H PRN PRN Reason: PAIN Last Admin: 10/10/17 08:45 Dose: 5 mg Potassium Chloride (Klor Con Er Tab*) 20 meq PO BID [facility] Prochlorperazine (Compazine Tab*) 10 mg PO Q6H PRN PRN Reason: NAUSEA Quetiapine Fumarate (Seroquel Tab*) 50 mg PO BEDTIME [facility] Last Admin: 10/09/17 22:02 Dose: Not Given Senna (Senokot Tab*) 1 tab PO BEDTIME [facility] Last Admin: 10/09/17 22:02 Dose: Not Given Sodium Biphosphate/Sodium Phosphate (Fleet Enema*) 1 bottle [place] DAILY PRN PRN Reason: CONSTIPATION Last Admin: 10/09/17 08:55 Dose: 1 bottle Objective: []A&Ox3, EOMI, PERRLA, [place] although very weak Lethargic and will fall asleep easily, conversing appropriately HRR, S1S2, no murmur noted LS with fine crackles to right base, ersp. even and non-labored, dry hacky cough noted intermittently Laboratory Results - last 24 hr 10/10/17 10/10/17 10/10/17 06:20 06:20 09:00 WBC 7.6 RBC 3.31 L Hgb 10.9 L Hct 32 L MCV 97 MCH 33 H MCHC 34 RDW 18 H Plt Count 200 MPV 6 L Sodium 137 Potassium TNP 2.3 L* Chloride 102 Carbon Dioxide 28 Anion Gap 7 BUN 4 L Creatinine 0.42 L Est GFR ( Amer) 191.3 Est GFR (Non-Af Amer) 148.7 BUN/Creatinine Ratio 9.5 Glucose 84 Calcium 8.4 L Assessment: []71 yo female with advanced colon cancer c/b catatonic states felt to be a combination of psychiatric and underlying [employer]ARM [employer] disease process, though specific process unclear. Long discussion with pt., 3 children, and regarding pt.'s current condition and though she has improved dramatically with addition of benzodiazepines I do not think she is a candidate for further therapy and agree with Dr. Bello's recommendation for hospice services. Questions answered regarding this process and reviewed that with known [employer] disease her prognosis without further therapy is likely less than 3 months, however with more aggressive supportive care she may do much better. Family appears realistic, though her is more distraught, and Heather herself states she is not afraid of dying and it is "inevitable." Plan: []1. Hospice Consult: Metastatic colon cancer with FARM [employer] lesions, unspecified catanoia, and now evidence for malnutrition. Is no longer a candidate for aggressive therapy and recommend hospice. SOHEILA Minaya to see today. 2. PT eval. per family request: concern about her ability to get OOB and d/t pt..'s desire to be seen in [facility]. 10/13 as previously planned, though I have recommended against this 3. Potassium replacement and recheck labs in AM 4. Portable CXR today: unlikely PNA, suggest cough, deep breath, and frequent repositioning 5. Cont. Valium and PRN ativan
--- NOTE | 2017-10-10 11:58 | RAD ---
INDICATION: Cough and dehydration COMPARISON: Most recent comparison chest x-rays dated September 15, [address] of the chest September 15, 2017 TECHNIQUE: Single AP portable view of the chest was obtained. FINDINGS: Image quality is compromised due to the relative inferiority of a portable chest x-ray. Again seen is a right subclavian vein Mediport with the tip terminating at the superior vena cava. There is a partially spiculated density overlying the right upper lung measuring 3.2 cm. There is a density at the midline right lower lobe above the diaphragm. The lungs are otherwise adequately aerated. IMPRESSION: Densities overlying the lung correspond to the parenchymal masses described on the in September 15, [address] There are otherwise no acute cardiopulmonary findings.
[2017-10-10] MEDS ORDERED: NS 0.9% 100 ML* 100 ML ONE (13:11)
--- NOTE | 2017-10-10 15:46 | CONSULT ---
Identification - Patient Identification Reason for Psychiatric Consultation: Incapacitating Symptoms -: Patient is a 71 year old, F admitted on 10/09/17. - MHU Identification Employment Status: Disabled Hx Psychiatric Hospitalization: No History - Objective HPI: Heather is seen today for follow up and I spoke with her assigned nurse, Gemma , and her youngest daughter, Leslie. The patient had an episode of catatonia last night that was interrupted by prompt administration of prn lorazepam. This led to sedation and therefore scheduled diazepam was held. Katiuska received her first diazepam this AM and has not had any full catatonic events, although her daughter noted some prodromic tendencies, such as pulling at her shirt. Family is agreeable with a [id number] approach to the diazepam, as she has only had one dose so far. Lab Results: Laboratory Tests 10/10/17 10/10/17 10/10/17 06:20 06:20 09:00 WBC 7.6 RBC 3.31 L Hgb 10.9 L Hct 32 L MCV 97 MCH 33 H MCHC 34 RDW 18 H Plt Count 200 MPV 6 L Sodium 137 Potassium TNP 2.3 L* Chloride 102 Carbon Dioxide 28 Anion Gap 7 BUN 4 L Creatinine 0.42 L Est GFR ( Amer) 191.3 Est GFR (Non-Af Amer) 148.7 BUN/Creatinine Ratio 9.5 Glucose 84 Calcium 8.4 L Exam Appearance: Well Developed/Nourished Hygiene: Normal Grooming: Fairly Well Kept Psychomotor Activities: Normal Exhibits Abnormal Movement: No Attitude and Relatedness: Cooperative Eye Contact: Good - Speech Quality: Unpressured Latencies: Normal Quantity: Appropriate Patient's Decription of Mood: "Good" Observed Affect: Good Affect Consistent with: Euthymia Patient's Thought Process: Coherent, Impoverished Thought Content: No Passive Wish, No Suicidal Planning, No Homicidal Ideation, No Paranoid Ideation Experiencing Hallucinations: No, Sensorium is Clear Type of Hallucinations: Visual: No, Auditory: No, Command: No Level of Consciousness: Alert Orientation: Yes Intact, Yes Orientated to Time, Yes Orientated to Place, Yes Orientated to Person Impulse Control: Intact Insight and Judgement: Good Impression - Impression Clinical Impression: 71 y.o. , white female with a history of metastatic cancer with brain involvement presenting with several weeks of catatonic behavior that has worsened since taken off lorazepam therapy at outside hospital. Inpatient DSM-IV Dx: Catatonia of Malignancy Merits Inpatient Hospitalization: No Plan - Treatment Plan Treatment Plan: Patient now taking diazepam 2.5mg PO BID. Seems to be tolerating it well. Will continue quetiapine 50mg PO qhs and prn lorazepam for breakthrough symptoms. Psychiatry will continue to follow. Continued Medication Management: Start Medication Medications: Current Medications Acetaminophen (Tylenol Tab*) 650 mg PO Q6H PRN PRN Reason: PAIN Last Admin: 10/09/17 18:18 Dose: 650 mg Amlodipine Besylate (Norvasc Tab*) 5 mg PO DAILY [facility] Last Admin: 10/10/17 08:46 Dose: 5 mg Ascorbic Acid (Vitamin C Tab*) 1,000 mg PO DAILY [facility] Last Admin: 10/10/17 08:50 Dose: 1,000 mg Cholecalciferol (Vitamin D Tab*) 400 unit PO DAILY [facility] Last Admin: 10/10/17 08:50 Dose: 400 unit Cyanocobalamin (Vitamin B12 Tab*) 1,000 mcg PO MoWeFr@0900 [facility] Last Admin: 10/10/17 08:50 Dose: 1,000 mcg Diazepam (Valium Tab(*)) 2.5 mg PO BID [facility] Last Admin: 10/10/17 08:44 Dose: 2.5 mg Guaifenesin (Robitussin*) 15 ml PO Q6H PRN PRN Reason: COUGH Last Admin: 10/09/17 11:05 Dose: 15 ml Heparin Sodium (Porcine) (Heparin Flush Picc/Ml/Cvc(*)) 1 ml FLUSH 0600,1800 [facility] PRN Reason: Protocol Last Admin: 10/10/17 04:57 Dose: Not Given Heparin Sodium (Porcine) (Heparin Vial(*)) 5,000 units SUBCUT Q8HR [facility] Last Admin: 10/10/17 13:16 Dose: 5,000 units Hydrocortisone (Cortef Tab*) 20 mg PO QAM [facility] Last Admin: 10/10/17 08:47 Dose: 20 mg Hydrocortisone (Cortef Tab*) 5 mg PO 1800 [facility] Last Admin: 10/09/17 16:30 Dose: Not Given Sodium Chloride (Ns 0.9% 1000 Ml*) 1,000 mls @ 100 mls/hr IV PER RATE [facility] Last Admin: 10/10/17 10:30 Dose: 100 mls/hr Lorazepam (Ativan Inj*) 1 mg IV PUSH Q6H PRN PRN Reason: catatonia Last Admin: 10/09/17 21:14 Dose: 1 mg Magnesium Oxide (Magox 400 Tab*) 200 mg PO DAILY [facility] Last Admin: 10/10/17 08:50 Dose: 200 mg Omeprazole (Prilosec Cap*) 40 mg PO DAILY [facility] Last Admin: 10/10/17 08:46 Dose: 40 mg Ondansetron HCl (Zofran Odt Tab*) 8 mg PO Q8H PRN PRN Reason: EMESIS Oxycodone HCl (Roxycodone Tab*) 5 mg PO Q4H PRN PRN Reason: PAIN Last Admin: 10/10/17 08:45 Dose: 5 mg Potassium Chloride (Klor Con Er Tab*) 20 meq PO BID [facility] Prochlorperazine (Compazine Tab*) 10 mg PO Q6H PRN PRN Reason: NAUSEA Quetiapine Fumarate (Seroquel Tab*) 50 mg PO BEDTIME [facility] Last Admin: 10/09/17 22:02 Dose: Not Given Senna (Senokot Tab*) 1 tab PO BEDTIME [facility] Last Admin: 10/09/17 22:02 Dose: Not Given Sodium Biphosphate/Sodium Phosphate (Fleet Enema*) 1 bottle OK DAILY PRN PRN Reason: CONSTIPATION Last Admin: 10/09/17 08:55 Dose: 1 bottle
[2017-10-10] MEDS ORDERED: KCL 10 MEQ/50 ML IVPREMIX* 10 MEQ/50 ML BAG ONE (17:22)
[2017-10-10] MEDS: Hydrocortisone TAB* 5 MG PO SCH (17:30)
[2017-10-10] MEDS: Potassium Chlor TAB* 20 MEQ TAB.ER PO SCH (20:24)
[2017-10-10] MEDS: QUEtiapine TAB* 25 MG PO SCH (20:25)
[2017-10-10] MEDS: Senna TAB PO SCH (20:26)
[2017-10-10 21:03] LABS: BUN/Creatinine Ratio 9.1 (8-20); Calcium 7.8 mg/dL (8.6-10.3); EGFR African American 252.7 (>60); EGFR Non-African American 196.5 (>60); Potassium 2.9 mmol/L (3.5-5.0)
[2017-10-10] MEDS: LORazepam INJ* 2 MG/ML 1 ML VIAL IV PUSH PRN (23:33)
[2017-10-11] MEDS: Heparin VIAL(*) 5000 UNITS/ML VIAL (FIVE THOUSAND) SUBCUT SCH ×3 (06:03→22:19)
[2017-10-11] MEDS: NS 0.9% 1000 ML* 1,000 ML IV SCH (06:45)
[2017-10-11 07:14] LABS: BUN/Creatinine Ratio 7.7 (8-20); Calcium 8.1 mg/dL (8.6-10.3); EGFR African American 208.4 (>60); Magnesium 1.8 mg/dL (1.9-2.7); Potassium 2.8 mmol/L (3.5-5.0)
[2017-10-11] MEDS: Diazepam TAB(*) 5 MG PO SCH ×2 (08:39→20:26)
[2017-10-11] MEDS: Hydrocortisone TAB* 10 MG PO SCH (08:40)
[2017-10-11] MEDS: amLODIPine TAB* 5 MG PO SCH (08:40)
[2017-10-11] MEDS: Omeprazole CAP* 20 MG PO SCH (08:41)
[2017-10-11] MEDS: Potassium Chlor TAB* 20 MEQ TAB.ER PO SCH ×2 (08:41→20:26)
[2017-10-11] MEDS: Ascorbic Acid TAB* 500 MG PO SCH (08:44)
[2017-10-11] MEDS: Magnesium Oxide TAB* 400 MG PO SCH (08:44)
[2017-10-11] MEDS: Cholecalciferol TAB* 400 UNIT PO SCH (08:45)
[2017-10-11] MEDS ORDERED: Magnesium Sulfate 2 GM IV* 2 GM/50 ML BAG IVPB ONE (10:14)
[2017-10-11] MEDS: KCL 20 MEQ/100 ML IVPREMIX* 20 MEQ/100 ML BAG IV SCH ×3 (13:39→16:15)
[2017-10-11] MEDS: oxyCODONE TAB* 5 MG TAB PO PRN (13:40)
--- NOTE | 2017-10-11 16:12 | CONSULT ---
Identification - Patient Identification Reason for Psychiatric Consultation: Incapacitating Symptoms -: Patient is a 71 year old, F admitted on 10/09/17. - MHU Identification Employment Status: Disabled Hx Psychiatric Hospitalization: No History - Objective HPI: Heather apparently had another brief episode of catatonia last night which was treated with prn lorazepam. She's awake and alert today and doing well. Her and her daughter, Leslie, indicate that she is likely pending discharge to hospice care in the community. She is tolerating the diazepam well. Lab Results: Laboratory Tests 10/10/17 10/10/17 10/10/17 06:20 06:20 09:00 WBC 7.6 RBC 3.31 L Hgb 10.9 L Hct 32 L MCV 97 MCH 33 H MCHC 34 RDW 18 H Plt Count 200 MPV 6 L Sodium 137 Potassium TNP 2.3 L* Chloride 102 Carbon Dioxide 28 Anion Gap 7 BUN 4 L Creatinine 0.42 L Est GFR ( Amer) 191.3 Est GFR (Non-Af Amer) 148.7 BUN/Creatinine Ratio 9.5 Glucose 84 Calcium 8.4 L Magnesium 10/10/17 10/11/17 20:35 05:55 WBC RBC Hgb Hct MCV MCH MCHC RDW Plt Count MPV Sodium 136 137 Potassium 2.9 L 2.8 L Chloride 102 103 Carbon Dioxide 30 27 Anion Gap 4 7 BUN 3 L 3 L Creatinine 0.33 L 0.39 L Est GFR ( Amer) 252.7 208.4 Est GFR (Non-Af Amer) 196.5 162.0 BUN/Creatinine Ratio 9.1 7.7 L Glucose 107 H 86 Calcium 7.8 L 8.1 L Magnesium 1.8 L Exam Appearance: Well Developed/Nourished Hygiene: Normal Grooming: Fairly Well Kept Psychomotor Activities: Normal Exhibits Abnormal Movement: No Attitude and Relatedness: Cooperative Eye Contact: Good - Speech Quality: Unpressured Latencies: Normal Quantity: Appropriate Patient's Decription of Mood: "Good" Observed Affect: Good Affect Consistent with: Euthymia Patient's Thought Process: Coherent, Impoverished Thought Content: No Passive Wish, No Suicidal Planning, No Homicidal Ideation, No Paranoid Ideation Experiencing Hallucinations: No, Sensorium is Clear Type of Hallucinations: Visual: No, Auditory: No, Command: No Level of Consciousness: Alert Orientation: Yes Intact, Yes Orientated to Time, Yes Orientated to Place, Yes Orientated to Person Impulse Control: Intact Insight and Judgement: Good Impression - Impression Clinical Impression: 71 y.o. , white female with a history of metastatic cancer with brain involvement presenting with several weeks of catatonic behavior that has worsened since taken off lorazepam therapy at outside hospital. Merits Inpatient Hospitalization: No Plan - Treatment Plan Treatment Plan: Recommend increasing diazepam from 2.5 to 5mg PO BID. We will discontinue quetiapine therapy, as this has not seemed to show any benefit and might contribute Seems to be tolerating it well. Will continue quetiapine 50mg PO qhs and prn lorazepam for breakthrough symptoms. Psychiatry will continue to follow daily. Continued Medication Management: Different Medication Medications: Current Medications Acetaminophen (Tylenol Tab*) 650 mg PO Q6H PRN PRN Reason: PAIN Last Admin: 10/09/17 18:18 Dose: 650 mg Amlodipine Besylate (Norvasc Tab*) 5 mg PO DAILY [facility] Last Admin: 10/11/17 08:40 Dose: 5 mg Ascorbic Acid (Vitamin C Tab*) 1,000 mg PO DAILY [facility] Last Admin: 10/11/17 08:44 Dose: 1,000 mg Cholecalciferol (Vitamin D Tab*) 400 unit PO DAILY [facility] Last Admin: 10/11/17 08:45 Dose: 400 unit Cyanocobalamin (Vitamin B12 Tab*) 1,000 mcg PO MoWeFr@0900 [facility] Last Admin: 10/10/17 08:50 Dose: 1,000 mcg Diazepam (Valium Tab(*)) 2.5 mg PO BID [facility] Last Admin: 10/11/17 08:39 Dose: 2.5 mg Guaifenesin (Robitussin*) 15 ml PO Q6H PRN PRN Reason: COUGH Last Admin: 10/09/17 11:05 Dose: 15 ml Heparin Sodium (Porcine) (Heparin Flush Picc/Ml/Cvc(*)) 1 ml FLUSH 0600,1800 [facility] PRN Reason: Protocol Last Admin: 10/11/17 06:05 Dose: Not Given Heparin Sodium (Porcine) (Heparin Vial(*)) 5,000 units SUBCUT Q8HR [facility] Last Admin: 10/11/17 13:44 Dose: 5,000 units Hydrocortisone (Cortef Tab*) 20 mg PO QAM [facility] Last Admin: 10/11/17 08:40 Dose: 20 mg Hydrocortisone (Cortef Tab*) 5 mg PO 1800 [facility] Last Admin: 10/10/17 17:30 Dose: 5 mg Sodium Chloride (Ns 0.9% 1000 Ml*) 1,000 mls @ 100 mls/hr IV PER RATE [facility] Last Admin: 10/11/17 06:45 Dose: 100 mls/hr Potassium Chloride (Potassium Chloride 20 Meq/100 Ml Ivpremix*) 20 meq in 100 mls @ 50 mls/hr IV Q2H [facility] Stop: 10/11/17 16:54 Last Admin: 10/11/17 13:39 Dose: 50 mls/hr Lorazepam (Ativan Inj*) 1 mg IV PUSH Q6H PRN PRN Reason: catatonia Last Admin: 10/10/17 23:33 Dose: 1 mg Magnesium Oxide (Magox 400 Tab*) 200 mg PO DAILY [facility] Last Admin: 10/11/17 08:44 Dose: 200 mg Omeprazole (Prilosec Cap*) 40 mg PO DAILY [facility] Last Admin: 10/11/17 08:41 Dose: 40 mg Ondansetron HCl (Zofran Odt Tab*) 8 mg PO Q8H PRN PRN Reason: EMESIS Oxycodone HCl (Roxycodone Tab*) 5 mg PO Q4H PRN PRN Reason: PAIN Last Admin: 10/11/17 13:40 Dose: 5 mg Potassium Chloride (Klor Con Er Tab*) 20 meq PO BID [facility] Last Admin: 10/11/17 08:41 Dose: 20 meq Prochlorperazine (Compazine Tab*) 10 mg PO Q6H PRN PRN Reason: NAUSEA Quetiapine Fumarate (Seroquel Tab*) 50 mg PO BEDTIME [facility] Last Admin: 10/10/17 20:25 Dose: 50 mg Senna (Senokot Tab*) 1 tab PO BEDTIME [facility] Last Admin: 10/10/17 20:26 Dose: 1 tab Sodium Biphosphate/Sodium Phosphate (Fleet Enema*) 1 bottle NC DAILY PRN PRN Reason: CONSTIPATION Last Admin: 10/09/17 08:55 Dose: 1 bottle
[2017-10-11] MEDS: Hydrocortisone TAB* 5 MG PO SCH (17:59)
[2017-10-11] MEDS: Senna TAB PO SCH (20:26)
[2017-10-11] MEDS: LORazepam INJ* 2 MG/ML 1 ML VIAL IV PUSH PRN (22:18)
[2017-10-12] MEDS: oxyCODONE TAB* 5 MG TAB PO PRN ×2 (03:31→10:52)
[2017-10-12] MEDS: Heparin VIAL(*) 5000 UNITS/ML VIAL (FIVE THOUSAND) SUBCUT SCH (05:17)
[2017-10-12 06:00] LABS: BUN/Creatinine Ratio 12.5 (8-20); Calcium 8.4 mg/dL (8.6-10.3); EGFR African American 261.8 (>60); EGFR Non-African American 203.6 (>60); Potassium 3.4 mmol/L (3.5-5.0)
[2017-10-12 08:15] VITALS: BP 137/80
[2017-10-12] MEDS: Cholecalciferol TAB* 400 UNIT PO SCH (09:15)
[2017-10-12] MEDS: Hydrocortisone TAB* 10 MG PO SCH (09:15)
[2017-10-12] MEDS: Omeprazole CAP* 20 MG PO SCH (09:15)
[2017-10-12] MEDS: Potassium Chlor TAB* 20 MEQ TAB.ER PO SCH (09:16)
[2017-10-12] MEDS: Magnesium Oxide TAB* 400 MG PO SCH (09:16)
[2017-10-12] MEDS: Diazepam TAB(*) 5 MG PO SCH (09:17)
[2017-10-12] MEDS: Cyanocobalamin TAB* 500 MCG PO SCH (09:17)
[2017-10-12] MEDS: amLODIPine TAB* 5 MG PO SCH (09:18)
[2017-10-12] MEDS: Ascorbic Acid TAB* 500 MG PO SCH (09:18)
[2017-10-12] MEDS: guaiFENesin LIQ* 100 MG/5 ML UDC PO PRN (11:56)
== END 2017-10-12 13:55 | disposition hospice, home (50) | DRG 375 ==
LOC: ED 13:08 → MED 18:24 → OBSVTOIN 10-09 16:24
PROVIDERS: ADMIT Hospitalist; ATTEND Internal Medicine Hematology & Oncology
DX: C18.0 Malignant neoplasm of cecum (principal); C78.00 Secondary malignant neoplasm of unspecified lung; C79.31 Secondary malignant neoplasm of brain; C79.71 Secondary malignant neoplasm of right adrenal gland; E86.0 Dehydration; F06.1 Catatonic disorder due to known physiological condition; D53.9 Nutritional anemia, unspecified; Z79.891 Long term (current) use of opiate analgesic; Z79.899 Other long term (current) drug therapy; Z88.5 Allergy status to narcotic agent; Z88.8 Allergy status to other drugs, medicaments and biological substances; Z88.6 Allergy status to analgesic agent; Z88.1 Allergy status to other antibiotic agents; Z91.030 Bee allergy status; Z82.5 Family history of asthma and other chronic lower respiratory diseases; Z82.49 Family history of ischemic heart disease and other diseases of the circulatory system; Z84.1 Family history of disorders of kidney and ureter; I10 Essential (primary) hypertension; K21.9 Gastro-esophageal reflux disease without esophagitis; F44.4 Conversion disorder with motor symptom or deficit
CPT/HCPCS: 36415; 71010; 80048; 80053; 80307; 81003; 81015; 82140; 83605; 83735; 84439; 84443; 84484; 85025; 85027; 87086; 87641; 93005; 99233; A9270-GY; G0378; J1642; J1644; J2060; J3475; J3480